=== PATIENT | female | born 1935 | race Caucasian/White ===

== ENCOUNTER 2016-05-11 21:54 | Inpatient (IN) | payer MEDICARE, OTHER ==
[2016-05-11] MEDS ORDERED: methylPREDNISolone 125 MG* 2 ML VIAL IV ONE (22:38)
[2016-05-11] MEDS ORDERED: Albuterol/Ipratropium NEB.SOL* Albuterol 2.5 MG/Ipratropium 0.5 MG 3 ML ONE (22:53)
[2016-05-11] MEDS: Albuterol/Ipratropium NEB.SOL* Albuterol 2.5 MG/Ipratropium 0.5 MG 3 ML INH SCH ×3 (22:56→23:33)
[2016-05-11 22:59] LABS: PCO2 Arterial 36 mmHg (35-45)
[2016-05-11 23:24] LABS: Hematocrit 37 % (35-47); Hemoglobin 12.3 g/dl (12.0-16.0); Mean Corpuscular HGB Conc 33 g/dl (31-36); Mean Corpuscular Hemoglobin 26 pg (27-31); Mean Corpuscular Volume 79 fL (80-97); Mean Platelet Volume 8 um3 (7.4-10.4); Red Blood Count 4.71 10^6/ul (4.0-5.4); Red Cell Distribution Width 16 % (10.5-15); White Blood Count 5.1 10^3/ul (3.5-10.8)
[2016-05-11 23:35] LABS: Albumin 3.9 g/dL (3.2-5.2); BUN/Creatinine Ratio 21.6 (8-20); Calcium 9.5 mg/dL (8.6-10.3); EGFR African American 52.8 (>60); Globulin 3.1 g/dL (2-4); Total Bilirubin 0.5 mg/dL (0.2-1.0)
--- NOTE | 2016-05-12 00:49 | HP ---
H&P (Free Text) History and Physical: PCP: Onel Antonio MD Date/Time of Evaluation: 05/12/2016 0130 CC: SOB, cough HPI: Mrs Woods is an 80YO female resident of [place] who reports onset of cough ~1 week ago which became acutely worse tonight with increased SOB, malaise , & fatigue. She has had some subjective F/C, but no N/V/D, chest pain, or other issues. Bowels and bladder have been normal. Flu & pneumoccocal vaccines reportedly up-to-date. Evaluation reveals positive influenza A and lung exam consistent with a 2nd exacerbation of asthma. PMedHx HTN Parkinsonism asthma hypothyroidism depression HX breast CA Allergies Prednisone Allergy (Intermediate, Verified 05/11/16 22:11) See Comment pt states all steroids make her violent Indomethacin Adverse Reaction (Severe, Verified 05/11/16 22:11) See Comment personality changes Amitriptyline Adverse Reaction (Intermediate, Verified 05/11/16 22:11) See Comment depression Cyclobenzaprine Adverse Reaction (Unknown, Verified 05/11/16 22:11) Unknown Reaction Details LISTED ON PHYSICIAN ORDERS Ambulatory Orders Multiple Vitamins W/ Minerals [Multivitamin Adults 50+] 1 tab PO DAILY 04/15/12 Triamterene/HCTZ 75-50 MG* [Maxzide 75-50*] 1 tab PO 0800 10/10/12 Albuterol HFA INHALER* [Ventolin HFA Inhaler*] 2 puff INH Q4H PRN 01/03/15 Fluticasone-Salmeterol 250-50* [Advair Diskus 250-50*] 1 puff INH BID 01/03/15 Levothyroxine TAB* [Synthroid TAB*] 50 mcg PO QAM 01/03/15 Sulfamethox/Trimethoprim DS* [Bactrim DS 800/160 TAB*] 1 tab PO SEE INSTRUCTIONS 01/03/15 Carbidopa/Levodop 25/100 MG(*) 1.5 tab PO 0800,1200,1600 01/04/15 Carbidopa/Levodop CR 50/200(*) 1 tab PO 1900 01/04/15 Sertraline HCl [Zoloft] 100 mg PO 1600 01/04/15 Benzonatate [Tessalon Perles] 100 mg PO TID #30 cap 11/21/15 Acetaminophen 05/12/16 Acetaminophen 325 PO Q4HR 05/12/16 Acetaminophen (Mapap) 650 tab PO Q4HR PRN 05/12/16 PSurgHx cataract extraction cholecystectomy appendectomy hysterectomy B TKA SocHx: no tobacco, alcohol, or recreational drug HX; lives at [place]; full code status FamHx: positive for HTN, DM ROS: as above, otherwise reviewed and all were negative Constitutional: NAD, normally developed, overweight elderly white female vitals: Vital Signs Temp 37.4 C 05/11/16 22:06 Pulse 97 05/12/16 01:00 Resp 20 05/12/16 01:00 BP 109/43 05/12/16 01:00 Pulse Ox 95 05/12/16 01:00 Intake & Output 05/11/16 05/11/16 05/12/16 11:59 23:59 11:59 Weight 81.193 kg HEENM: atraumatic; sclera/conjunctiva: non-icteric/clear; hearing: clinically intact; oropharynx: clear, mucosa tacky Neck: soft tissue: no nuchal rigidity; thyroid: normal Pulmonary: clear to auscultation bilaterally, good aeration, no accessory muscle use CV: RR/RR, normal S1S2, no carotid bruit, no jugular venous distention, 2+ B DP/ PT, no edema Abdominal: soft, non-distended, non-tender, no rebound/guarding/rigidity, normoactive bowel sounds, no hepatosplenomegaly or masses, no costovertebral angle tenderness Musculoskeletal: general: grossly intact; gait: borderline stability Integumental: normal appearance and texture of exposed skin Neurological resting tremor or RUE w/ 'pill rolling' Psychiatric orientation: AA&O to PPS affect: calm mood: cooperative eye contact: fair content: reliable responses: timely insight: fair Testing: Lab Results 05/11/16 05/11/16 05/11/16 Range/Units 22:50 23:04 23:04 WBC 5.1 (3.5-10.8) 10^3/ul RBC 4.71 (4.0-5.4) 10^6/ul Hgb 12.3 (12.0-16.0) g/dl Hct 37 (35-47) % MCV 79 L (80-97) fL MCH 26 L (27-31) pg MCHC 33 (31-36) g/dl RDW 16 H (10.5-15) % Plt Count 182 (150-450) 10^3/ul MPV 8 (7.4-10.4) um3 Neut % (Auto) 42.8 (38-83) % Lymph % (Auto) 41.1 (25-47) % [place] % (Auto) 14.2 H (1-9) % Eos % (Auto) 1.3 (0-6) % Baso % (Auto) 0.6 (0-2) % Absolute Neuts (auto) 2.2 (1.5-7.7) 10^3/ul Absolute Lymphs (auto) 2.1 (1.0-4.8) 10^3/ul Absolute Monos (auto) 0.7 (0-0.8) 10^3/ul Absolute Eos (auto) 0.1 (0-0.6) 10^3/ul Absolute Basos (auto) 0 (0-0.2) 10^3/ul Absolute Nucleated RBC 0.01 10^3/ul Nucleated RBC % 0.1 Patient Temperature Not Reportable ABG pH 7.47 H (7.35-7.45) ABG pCO2 36 (35-45) mmHg ABG pO2 87 (80-100) mmHg ABG HCO3 26.9 (19-31) mmol/L ABG O2 Saturation 96.9 (95-98) % ABG Base Excess 2.6 H (-2.0-2.0) Respiration Rate Not Reportable O2 Delivery Device nasal cannula Ventilator Type Not Reportable Vent Mode Not Reportable FiO2 Not Reportable Inspiratory Time Not Reportable PEEP Not Reportable Pressure Support Not Reportable Pressure Control Not Reportable EPAP Not Reportable IPAP Not Reportable BiPAP Not Reportable Sodium 136 (133-145) mmol/L Potassium 3.0 L (3.5-5.0) mmol/L Chloride 98 L (101-111) mmol/L Carbon Dioxide 27 (22-32) mmol/L Anion Gap 11 (2-11) mmol/L BUN 27 H (6-24) mg/dL Creatinine 1.25 H (0.51-0.95) mg/dL Est GFR ( Amer) 52.8 (>60) Est GFR (Non-Af Amer) 41.0 (>60) BUN/Creatinine Ratio 21.6 H (8-20) Glucose 118 H (70-100) mg/dL Lactic Acid (0.5-2.0) mmol/L Calcium 9.5 (8.6-10.3) mg/dL Total Bilirubin 0.50 (0.2-1.0) mg/dL AST 62 H (13-39) U/L ALT 12 (7-52) U/L Alkaline Phosphatase 61 (34-104) U/L Troponin I 0.02 (<0.04) ng/mL B-Natriuretic Peptide ( - 100) pg/mL Total Protein 7.0 (6.4-8.9) g/dL Albumin 3.9 (3.2-5.2) g/dL Globulin 3.1 (2-4) g/dL Albumin/Globulin Ratio 1.3 (1-3) Influenza A (Rapid) (Negative) Influenza B (Rapid) (Negative) 05/11/16 05/11/16 05/12/16 Range/Units 23:04 23:04 00:41 WBC (3.5-10.8) 10^3/ul RBC (4.0-5.4) 10^6/ul Hgb (12.0-16.0) g/dl Hct (35-47) % MCV (80-97) fL MCH (27-31) pg MCHC (31-36) g/dl RDW (10.5-15) % Plt Count (150-450) 10^3/ul MPV (7.4-10.4) um3 Neut % (Auto) (38-83) % Lymph % (Auto) (25-47) % [place] % (Auto) (1-9) % Eos % (Auto) (0-6) % Baso % (Auto) (0-2) % Absolute Neuts (auto) (1.5-7.7) 10^3/ul Absolute Lymphs (auto) (1.0-4.8) 10^3/ul Absolute Monos (auto) (0-0.8) 10^3/ul Absolute Eos (auto) (0-0.6) 10^3/ul Absolute Basos (auto) (0-0.2) 10^3/ul Absolute Nucleated RBC 10^3/ul Nucleated RBC % Patient Temperature ABG pH (7.35-7.45) ABG pCO2 (35-45) mmHg ABG pO2 (80-100) mmHg ABG HCO3 (19-31) mmol/L ABG O2 Saturation (95-98) % ABG Base Excess (-2.0-2.0) Respiration Rate O2 Delivery Device Ventilator Type Vent Mode FiO2 Inspiratory Time PEEP Pressure Support Pressure Control EPAP IPAP BiPAP Sodium (133-145) mmol/L Potassium (3.5-5.0) mmol/L Chloride (101-111) mmol/L Carbon Dioxide (22-32) mmol/L Anion Gap (2-11) mmol/L BUN (6-24) mg/dL Creatinine (0.51-0.95) mg/dL Est GFR ( Amer) (>60) Est GFR (Non-Af Amer) (>60) BUN/Creatinine Ratio (8-20) Glucose (70-100) mg/dL Lactic Acid 0.9 (0.5-2.0) mmol/L Calcium (8.6-10.3) mg/dL Total Bilirubin (0.2-1.0) mg/dL AST (13-39) U/L ALT (7-52) U/L Alkaline Phosphatase (34-104) U/L Troponin I (<0.04) ng/mL B-Natriuretic Peptide 54 ( - 100) pg/mL Total Protein (6.4-8.9) g/dL Albumin (3.2-5.2) g/dL Globulin (2-4) g/dL Albumin/Globulin Ratio (1-3) Influenza A (Rapid) Positive H (Negative) Influenza B (Rapid) Negative (Negative) ECG, personally reviewed: sinus tachycardia rate 102, mild lateral ST depressions CXR, personally reviewed: no acute process Impression: 80F presenting with cough & SOB found to be influenza A positive with 2nd asthma exacerbation DIAGNOSIS & PLAN Primary asthma exacerbation : albuterol nebs : mometasone/formoterol : tiotropium : IV methylprednisolone : supplemental oxygen : guaifenesin : supportive care influenza A : PO oseltamivir 75mg BID x5 days dehydration : IVFs, monitor hypoKalemia : replace & recheck Secondary HTN : continue triamterene/HCTZ Parkinsonism : continue levo/carbidopa hypothyroidism : continue levothyroxine once dose reconciled depression : continue sertraline HX breast CA : no acute issues Admission Rational: inpatient management for asthma exacerbation 2nd influenza A not appropriate for outpatient setting DVTp: SCDs & heparin SQ Code Status: full HCP: daughter
[2016-05-12 01:00] LABS: Troponin I 0.02 ng/mL (<0.04)
[2016-05-12] MEDS ORDERED: Ondansetron INJ* 2 MG/ML VIAL IV PRN (01:32)
[2016-05-12] MEDS ORDERED: cefTRIAXone VIAL(*) 1,000 MG in NS 0.9% 50 ML* 50 ML IVPB SCH (02:00)
[2016-05-12] MEDS ORDERED: Azithromycin IV(*) 500 MG in NS 0.9% 250 ML* 250 ML IVPB SCH (02:00)
[2016-05-12] MEDS ORDERED: KCL 20 MEQ/100 ML IVPREMIX* 20 MEQ/100 ML BAG IV SCH (02:30)
--- NOTE | 2016-05-12 03:20 | ED ---
Sally Cabezas [place], scribed for Donavon Levy on 05/11/16 at 2245 . Shortness of Breath - HPI Summary HPI Summary: Patient is a 80 y/o female who presents to the ED with dyspnea for 3 to 4 days. She reports having a cold, but denies coughing, fever, or pedal edema. Her PSHx is significant for a mastectomy. She denies smoking. - History of Current Complaint Chief Complaint: EDShortnessOfBreath Time Seen by Provider: 05/11/16 22:02 Hx Obtained From: Patient Onset/Duration: Gradual Onset, Lasting Days Current Severity: Moderate Aggrevating Factors: Nothing Alleviating Factors: Nothing - Allergy/Home Medications Allergies/Adverse Reactions: Allergies Allergy/AdvReac Type Severity Reaction Status Date / Time Indomethacin AdvReac Severe See Comment Verified 05/11/16 22:11 Amitriptyline AdvReac Intermediate See Comment Verified 05/11/16 22:11 Prednisone AdvReac Intermediate See Comment Verified 05/12/16 01:43 Cyclobenzaprine AdvReac Unknown Unknown Verified 05/11/16 22:11 Reaction Details PMH/Surg Hx/FS Hx/Imm Hx Endocrine/Hematology History: Reports: Hx Diabetes - history, not current, Hx Thyroid Disease Denies: Hx Sickle Cell Disease Cardiovascular History: Reports: Hx Hypertension Denies: Hx Congestive Heart Failure, Hx Pacemaker/ICD Respiratory History: Reports: Hx Asthma Denies: Other Respiratory Problems/Disorders GI History: Reports: Hx Diverticulosis, Hx Gastroesophageal Reflux Disease, Hx Hiatal Hernia, Other GI Disorders - hx lower GI bleed History: Reports: Other Problems/Disorders - some incontence Musculoskeletal History: Reports: Hx Arthritis, Hx Back Problems, Other Musculoskeletal History - Spinal stenosis Denies: Hx Gout Sensory History: Reports: Hx Contacts or Glasses Denies: Hx Hearing Aid Opthamlomology History: Reports: Hx Contacts or Glasses Neurological History: Reports: Hx Dementia, Other Neuro Impairments/Disorders - PARKINSONS DISEASE, restless leg Denies: Hx Seizures, Hx Transient Ischemic Attacks (TIA) Psychiatric History: Reports: Hx Panic Disorder - hx of anxiety - Cancer History Cancer Type, Location and Year: Mastectomy for breast cancer;unknown dates Hx Chemotherapy: No Hx Radiation Therapy: No - Surgical History Surgery Procedure, Year, and Place: Tram flap in 1998 Multiple incisional hernia 's with erosion of mesh into bowel repair, 04/08/12: Dr. Caba Hysterectomy with oophrectomy, knee surgery bilateral, mastectomy,gallbladder , removal of mesh into bowel area. inserted biomesh. Hx Anesthesia Reactions: No - Immunization History Date of Tetanus Vaccine: utd Date of Influenza Vaccine: unk Infectious Disease History: No Infectious Disease History: Denies: Traveled Outside the [place] in Last 30 Days - Family History Known Family History: Negative: Other - negative malignant hyperthemia or anesthetic reaction. - Social History Alcohol Use: None Substance Use Type: Reports: None Hx Tobacco Use: No Smoking Status (MU): Never Smoked Tobacco Review of Systems Negative: Fever Positive: Shortness Of Breath. Negative: Cough Negative: Edema - Pedal. All Other Systems Reviewed And Are Negative: Yes Physical Exam Triage Information Reviewed: Yes Vital Signs On Initial Exam: Initial Vitals Temp Pulse Resp BP Pulse Ox 99.4 F 96 18 122/66 91 05/11/16 22:06 05/11/16 22:06 05/11/16 22:06 05/11/16 22:06 05/11/16 22:06 Vital Signs Reviewed: Yes Appearance: Positive: Well-Appearing, No Pain Distress Skin: Positive: Warm, Skin Color Reflects Adequate Perfusion, Dry Head/Face: Positive: Normal Head/Face Inspection Eyes: Positive: EOMI, ALPESH Neck: Positive: Supple, Nontender Respiratory/Lung Sounds: Positive: Rhonchi, Wheezes - Bilateral. Cardiovascular: Positive: RRR, Pulses are Symmetrical in both Upper and Lower Extremities Abdomen Description: Positive: Nontender, Soft Bowel Sounds: Positive: Present Musculoskeletal: Positive: Normal, Strength/ROM Intact Neurological: Positive: Normal, Sensory/Motor Intact, Alert, Oriented to Person Place, Time - [place] Coma Scale Coma Scale Total: 15 Diagnostics - Vital Signs Vital Signs Temp Pulse Resp BP Pulse Ox 05/11/16 22:06 99.4 F 96 18 122/66 91 - Laboratory Lab Results: Lab Results 05/11/16 05/11/16 05/11/16 Range/Units 22:50 23:04 23:04 WBC 5.1 (3.5-10.8) 10^3/ul RBC 4.71 (4.0-5.4) 10^6/ul Hgb 12.3 (12.0-16.0) g/dl Hct 37 (35-47) % MCV 79 L (80-97) fL MCH 26 L (27-31) pg MCHC 33 (31-36) g/dl RDW 16 H (10.5-15) % Plt Count 182 (150-450) 10^3/ul MPV 8 (7.4-10.4) um3 Neut % (Auto) 42.8 (38-83) % Lymph % (Auto) 41.1 (25-47) % [place] % (Auto) 14.2 H (1-9) % Eos % (Auto) 1.3 (0-6) % Baso % (Auto) 0.6 (0-2) % Absolute Neuts (auto) 2.2 (1.5-7.7) 10^3/ul Absolute Lymphs (auto) 2.1 (1.0-4.8) 10^3/ul Absolute Monos (auto) 0.7 (0-0.8) 10^3/ul Absolute Eos (auto) 0.1 (0-0.6) 10^3/ul Absolute Basos (auto) 0 (0-0.2) 10^3/ul Absolute Nucleated RBC 0.01 10^3/ul Nucleated RBC % 0.1 Patient Temperature Not Reportable ABG pH 7.47 H (7.35-7.45) ABG pCO2 36 (35-45) mmHg ABG pO2 87 (80-100) mmHg ABG HCO3 26.9 (19-31) mmol/L ABG O2 Saturation 96.9 (95-98) % ABG Base Excess 2.6 H (-2.0-2.0) Respiration Rate Not Reportable O2 Delivery Device nasal cannula Ventilator Type Not Reportable Vent Mode Not Reportable FiO2 Not Reportable Inspiratory Time Not Reportable PEEP Not Reportable Pressure Support Not Reportable Pressure Control Not Reportable EPAP Not Reportable IPAP Not Reportable BiPAP Not Reportable Sodium 136 (133-145) mmol/L Potassium 3.0 L (3.5-5.0) mmol/L Chloride 98 L (101-111) mmol/L Carbon Dioxide 27 (22-32) mmol/L Anion Gap 11 (2-11) mmol/L BUN 27 H (6-24) mg/dL Creatinine 1.25 H (0.51-0.95) mg/dL Est GFR ( Amer) 52.8 (>60) Est GFR (Non-Af Amer) 41.0 (>60) BUN/Creatinine Ratio 21.6 H (8-20) Glucose 118 H (70-100) mg/dL Lactic Acid (0.5-2.0) mmol/L Calcium 9.5 (8.6-10.3) mg/dL Total Bilirubin 0.50 (0.2-1.0) mg/dL AST 62 H (13-39) U/L ALT 12 (7-52) U/L Alkaline Phosphatase 61 (34-104) U/L Troponin I 0.02 (<0.04) ng/mL B-Natriuretic Peptide ( - 100) pg/mL Total Protein 7.0 (6.4-8.9) g/dL Albumin 3.9 (3.2-5.2) g/dL Globulin 3.1 (2-4) g/dL Albumin/Globulin Ratio 1.3 (1-3) Influenza A (Rapid) (Negative) Influenza B (Rapid) (Negative) 05/11/16 05/11/16 05/12/16 Range/Units 23:04 23:04 00:41 WBC (3.5-10.8) 10^3/ul RBC (4.0-5.4) 10^6/ul Hgb (12.0-16.0) g/dl Hct (35-47) % MCV (80-97) fL MCH (27-31) pg MCHC (31-36) g/dl RDW (10.5-15) % Plt Count (150-450) 10^3/ul MPV (7.4-10.4) um3 Neut % (Auto) (38-83) % Lymph % (Auto) (25-47) % [place] % (Auto) (1-9) % Eos % (Auto) (0-6) % Baso % (Auto) (0-2) % Absolute Neuts (auto) (1.5-7.7) 10^3/ul Absolute Lymphs (auto) (1.0-4.8) 10^3/ul Absolute Monos (auto) (0-0.8) 10^3/ul Absolute Eos (auto) (0-0.6) 10^3/ul Absolute Basos (auto) (0-0.2) 10^3/ul Absolute Nucleated RBC 10^3/ul Nucleated RBC % Patient Temperature ABG pH (7.35-7.45) ABG pCO2 (35-45) mmHg ABG pO2 (80-100) mmHg ABG HCO3 (19-31) mmol/L ABG O2 Saturation (95-98) % ABG Base Excess (-2.0-2.0) Respiration Rate O2 Delivery Device Ventilator Type Vent Mode FiO2 Inspiratory Time PEEP Pressure Support Pressure Control EPAP IPAP BiPAP Sodium (133-145) mmol/L Potassium (3.5-5.0) mmol/L Chloride (101-111) mmol/L Carbon Dioxide (22-32) mmol/L Anion Gap (2-11) mmol/L BUN (6-24) mg/dL Creatinine (0.51-0.95) mg/dL Est GFR ( Amer) (>60) Est GFR (Non-Af Amer) (>60) BUN/Creatinine Ratio (8-20) Glucose (70-100) mg/dL Lactic Acid 0.9 (0.5-2.0) mmol/L Calcium (8.6-10.3) mg/dL Total Bilirubin (0.2-1.0) mg/dL AST (13-39) U/L ALT (7-52) U/L Alkaline Phosphatase (34-104) U/L Troponin I (<0.04) ng/mL B-Natriuretic Peptide 54 ( - 100) pg/mL Total Protein (6.4-8.9) g/dL Albumin (3.2-5.2) g/dL Globulin (2-4) g/dL Albumin/Globulin Ratio (1-3) Influenza A (Rapid) Positive H (Negative) Influenza B (Rapid) Negative (Negative) Result Diagrams: 05/11/16 23:04 05/11/16 23:04 Lab Statement: Any lab studies that have been ordered have been reviewed, and results considered in the medical decision making process. - Radiology CXR Radiology Interpretation Completed By: ED Physician - Negative/normal. - EKG 0036 EKG Interpretation: Sinus tachycardia @ 102 bpm. MAT. Re-Evaluation - Re-Evaluation First Eval Re-Evaluation Time: 00:06 Change: Unchanged Course/Dx - Diagnoses Provider Diagnoses: COPD exacerbation - Physician Notifications Discussed Care of Patient With: Dr. Cooper (Hospitalist) @ 0010. Will admit. Discharge - Discharge Plan Condition: Stable Disposition: ADMITTED TO [facility] The documentation as recorded by the Sally león Salem accurately reflects the service I personally performed and the decisions made by , Donavon Levy.
[2016-05-12] MEDS: NS 0.9% 1000 ML* 1,000 ML IV SCH ×2 (03:26→18:36)
[2016-05-12] MEDS: KCL 20 MEQ/100 ML IVPREMIX* 20 MEQ/100 ML BAG IV SCH ×2 (03:26→09:58)
[2016-05-12] MEDS: Omeprazole CAP* 20 MG PO SCH (05:31)
--- NOTE | 2016-05-12 07:05 | RAD ---
INDICATION: Short of breath COMPARISON: February 22, 2016 TECHNIQUE: An AP portable view obtained at 1133 hours is submitted. FINDINGS: Bones/Soft Tissues: There are no acute bony findings. Cardiomediastinal: The cardiomediastinal silhouette is normal. Lungs: There are no infiltrates. Pleura: There are no pleural effusions. Other: None IMPRESSION: NO ACTIVE DISEASE.
[2016-05-12] MEDS: Mometasone/Formoter 200/5 MDI INH SCH ×2 (07:55→20:47)
[2016-05-12] MEDS: Tiotropium CAP.INH* CAP.INH/18 MCG (USE ORDER SET !) INH SCH (07:55)
[2016-05-12] MEDS: Albuterol 2.5 MG/3 ML NEB.SOL* (0.083%) INH SCH ×4 (07:56→20:47)
[2016-05-12 08:21] LABS: Hematocrit 37 % (35-47); Hemoglobin 12.3 g/dl (12.0-16.0); Mean Corpuscular HGB Conc 33 g/dl (31-36); Mean Corpuscular Hemoglobin 26 pg (27-31); Mean Corpuscular Volume 79 fL (80-97); Mean Platelet Volume 7 um3 (7.4-10.4); Red Blood Count 4.72 10^6/ul (4.0-5.4); Red Cell Distribution Width 17 % (10.5-15); White Blood Count 4.3 10^3/ul (3.5-10.8)
[2016-05-12 08:51] LABS: BUN/Creatinine Ratio 22.8 (8-20); Calcium 9.3 mg/dL (8.6-10.3); EGFR African American 51.8 (>60); EGFR Non-African American 40.3 (>60); Potassium 3.6 mmol/L (3.5-5.0)
[2016-05-12] MEDS ORDERED: Spiriva Inhaler DEVICE* 1 EACH DEVICE INH ONE (09:00)
[2016-05-12] MEDS: Carbidopa/Levodop 25/100 MG TAB(*) PO SCH ×3 (09:56→16:08)
[2016-05-12] MEDS: Oseltamivir CAP* 30 MG CAP PO SCH ×2 (09:57→22:04)
[2016-05-12] MEDS: Triamterene/HCTZ 75-50 MG* TAB PO SCH (09:57)
[2016-05-12] MEDS: guaiFENesin ER TAB 600 MG PO SCH ×2 (09:57→22:05)
[2016-05-12] MEDS: Docusate CAP* 100 MG PO SCH ×2 (09:57→22:04)
--- NOTE | 2016-05-12 10:33 | PN ---
Subjective Date of Service: 05/12/16 Interval History: This is an 80 yo female with a h/o dementia, Parkinsons, asthma, hypothyroidism and depression who presented yesterday with complaints of SOB and cough. Tested positive for influenza A with asthma exacerbation. She has been started on Tamiflu and IV corticosteroids. Patient reports feeling "lousy" today. No respiratory complaints. She can't localize her concern. She has had several episodes of diarrhea today. No complaints of abdominal pain. Objective Active Medications: Acetaminophen (Tylenol Tab*) 650 mg PO Q6H PRN PRN Reason: FEVER/PAIN Albuterol (Ventolin 2.5 Mg/3 Ml Neb.Madisyn*) 2.5 mg INH Q2H PRN PRN Reason: SOB/WHEEZING Albuterol (Ventolin 2.5 Mg/3 Ml Neb.Madisyn*) 2.5 mg INH [id number] AWAKE [facility] Last Admin: 05/12/16 07:56 Dose: 2.5 mg Carbidopa/Levodopa (Sinemet 25/100 Tab(*)) 1.5 tab PO 0800,1200,1600 [facility] Last Admin: 05/12/16 09:56 Dose: 1.5 tab Carbidopa/Levodopa (Sinemet Cr 50/200(*)) 1 tab.cr PO 1900 [facility] Docusate Sodium (Colace Cap*) 200 mg PO BID [facility] Last Admin: 05/12/16 09:57 Dose: 200 mg Guaifenesin (Mucinex*) 1,200 mg PO BID [facility] Last Admin: 05/12/16 09:57 Dose: 1,200 mg Heparin Sodium (Porcine) (Heparin Vial(*)) 5,000 units SUBCUT Q8HR [facility] Sodium Chloride (Ns 0.9% 1000 Ml*) 1,000 mls @ 85 mls/hr IV PER RATE [facility] Last Admin: 05/12/16 03:26 Dose: 85 mls/hr Melatonin (Melatonin (Nf)) 3 mg PO BEDTIME PRN; Protocol PRN Reason: Sleep Methylprednisolone Sodium Succinate (Solu-Medrol*) 40 mg IV Q8H [facility] Stop: 05/12/16 23:00 Mometasone Furoate/Formoterol Fumar (Dulera 200/5 Mdi*) 2 puff INH BID [facility] Last Admin: 05/12/16 07:55 Dose: 2 puff Omeprazole (Prilosec Cap*) 20 mg PO DAILY@0600 [facility] Last Admin: 05/12/16 05:31 Dose: 20 mg Ondansetron HCl (Zofran Inj*) 4 mg IV Q6H PRN PRN Reason: NAUSEA Oseltamivir Phosphate (Tamiflu Cap*) 30 mg PO BID [facility] Stop: 05/16/16 21:01 Last Admin: 05/12/16 09:57 Dose: 30 mg Sertraline HCl (Zoloft*) 100 mg PO 1600 [facility] Tiotropium Gaffney (Spiriva Cap.Inh*) 1 cap INH DAILY [facility] Last Admin: 05/12/16 07:55 Dose: 1 cap Triamterene/HCTZ (Maxzide 75-50*) 1 tab PO 0800 [facility] Last Admin: 05/12/16 09:57 Dose: 1 tab Vital Signs: Temp Pulse Resp BP Pulse Ox 98.2 F 97 18 127/74 97 05/12/16 08:31 05/12/16 08:53 05/12/16 08:53 05/12/16 08:31 05/12/16 08:53 Appearance: Elderly, ill appearing female with a tremor who appears mildly uncomfortable. Neck: NL Appearance and Movements; NL JVP Respiratory: Symmetrical Chest Expansion and Respiratory Effort, - - few rhonchi and wheezing appreciated at lung bases, remainder of lung chase clear, no wheezing Cardiovascular: NL Sounds; No Murmurs; No JVD, RRR Abdominal: NL Sounds; No Tenderness; No Distention Extremities: No Edema Skin: No Rash or Ulcers Neurological: - - alert, but confused Result Diagrams: 05/12/16 08:15 05/12/16 08:15 Additional Lab and Data: . Microbiology and Other Data: Microbiology 05/12/16 02:20 Nasal Screen MRSA (PCR)(BERNABE) - Final Nasal Mrsa Negative Diagnostic Imaging: CXR - NAD Assess/Plan/Problems-Billing Assessment: This is an 80 yo female with asthma, Parkinsons, asthma, HTN, hypothyroidism and depression who presented with cough and shortness of breath. She has been admitted for an asthma exacerbation secondary to influenza A infection. - Patient Problems (1) Asthma exacerbation Comment: Secondary to influenza A Oxygenating fairly well at this time Few rhonchi and wheezes appreciated at lung bases Cont IV corticosteroids today and can transition to oral tomorrow (2) Influenza A virus present Comment: Afebrile overnight Tamiflu has been initiated (3) Dementia Comment: Likely [place] body No significant behavioral concerns (4) HTN (hypertension) Comment: Normotensive at this time Triamterene/HCTZ has been continued at this time (5) Parkinson disease Comment: Tremor noted Sinemet at home doses has been continued (6) Hypothyroid Comment: Cont levothyroxine Status and Disposition: Patient requires continued inpatient hospital care. Anticipate discharge in ~ 2d
[2016-05-12] MEDS: methylPREDNISolone SOD 40 MG* 1 ML VIAL IV SCH ×2 (11:10→18:43)
[2016-05-12] MEDS: Sertraline* 100 MG TAB PO SCH (16:02)
[2016-05-12] MEDS: Carbidopa/Levodop CR 50/200(*) TAB.CR PO SCH (19:30)
[2016-05-13] MEDS: Albuterol 2.5 MG/3 ML NEB.SOL* (0.083%) INH SCH ×5 (01:08→19:42)
[2016-05-13] MEDS: Heparin VIAL(*) 5000 UNITS/ML VIAL (FIVE THOUSAND) SUBCUT SCH ×3 (05:20→21:34)
[2016-05-13] MEDS: Omeprazole CAP* 20 MG PO SCH (05:21)
[2016-05-13] MEDS: Levothyroxine TAB* 50 MCG TAB PO SCH (05:21)
[2016-05-13] MEDS: NS 0.9% 1000 ML* 1,000 ML IV SCH (07:14)
[2016-05-13] MEDS: Tiotropium CAP.INH* CAP.INH/18 MCG (USE ORDER SET !) INH SCH (07:55)
[2016-05-13] MEDS: Mometasone/Formoter 200/5 MDI INH SCH ×2 (07:55→19:42)
[2016-05-13] MEDS ORDERED: methylPREDNISolone SOD 40 MG* 1 ML VIAL IV SCH (09:00)
[2016-05-13 09:43] LABS: BUN/Creatinine Ratio 25.8 (8-20); Calcium 9.2 mg/dL (8.6-10.3); EGFR African American 78.1 (>60); EGFR Non-African American 60.7 (>60); Potassium 3.6 mmol/L (3.5-5.0)
[2016-05-13] MEDS: guaiFENesin ER TAB 600 MG PO SCH ×2 (11:01→21:33)
[2016-05-13] MEDS: Carbidopa/Levodop 25/100 MG TAB(*) PO SCH ×3 (11:01→17:57)
[2016-05-13] MEDS: predniSONE TAB* 20 MG PO SCH (11:02)
[2016-05-13] MEDS: Oseltamivir CAP* 30 MG CAP PO SCH ×2 (11:02→21:34)
[2016-05-13] MEDS: Triamterene/HCTZ 75-50 MG* TAB PO SCH (11:02)
[2016-05-13] MEDS: Docusate CAP* 100 MG PO SCH ×2 (11:12→21:34)
--- NOTE | 2016-05-13 14:21 | PN ---
Subjective Date of Service: 05/13/16 Interval History: Patient reports improvement since yesterday. She still has poor energy and still feels a little "foggy". Myalgias have improved. Cough has improved. No complaints of dyspnea. Objective Active Medications: Acetaminophen (Tylenol Tab*) 650 mg PO Q6H PRN PRN Reason: FEVER/PAIN Albuterol (Ventolin 2.5 Mg/3 Ml Neb.Madisyn*) 2.5 mg INH Q2H PRN PRN Reason: SOB/WHEEZING Albuterol (Ventolin 2.5 Mg/3 Ml Neb.Madisyn*) 2.5 mg INH [id number] AWAKE [facility] Last Admin: 05/13/16 13:49 Dose: Not Given Carbidopa/Levodopa (Sinemet 25/100 Tab(*)) 1.5 tab PO 0800,1200,1600 [facility] Last Admin: 05/13/16 11:01 Dose: 1.5 tab Carbidopa/Levodopa (Sinemet Cr 50/200(*)) 1 tab.cr PO 1900 [facility] Last Admin: 05/12/16 19:30 Dose: 1 tab.cr Docusate Sodium (Colace Cap*) 200 mg PO BID [facility] Last Admin: 05/13/16 11:12 Dose: Not Given Guaifenesin (Mucinex*) 1,200 mg PO BID [facility] Last Admin: 05/13/16 11:01 Dose: 1,200 mg Heparin Sodium (Porcine) (Heparin Vial(*)) 5,000 units SUBCUT Q8HR [facility] Last Admin: 05/13/16 05:20 Dose: 5,000 units Levothyroxine Sodium (Synthroid Tab*) 50 mcg PO 0600 [facility] Last Admin: 05/13/16 05:21 Dose: 50 mcg Melatonin (Melatonin (Nf)) 3 mg PO BEDTIME PRN; Protocol PRN Reason: Sleep Mometasone Furoate/Formoterol Fumar (Dulera 200/5 Mdi*) 2 puff INH BID [facility] Last Admin: 05/13/16 07:55 Dose: 2 puff Omeprazole (Prilosec Cap*) 20 mg PO DAILY@0600 [facility] Last Admin: 05/13/16 05:21 Dose: 20 mg Ondansetron HCl (Zofran Inj*) 4 mg IV Q6H PRN PRN Reason: NAUSEA Oseltamivir Phosphate (Tamiflu Cap*) 30 mg PO BID [facility] Stop: 05/16/16 21:01 Last Admin: 05/13/16 11:02 Dose: 30 mg Prednisone (Deltasone Tab*) 40 mg PO DAILY [facility] Last Admin: 05/13/16 11:02 Dose: 40 mg Sertraline HCl (Zoloft*) 100 mg PO 1600 [facility] Last Admin: 05/12/16 16:02 Dose: 100 mg Tiotropium [place] (Spiriva Cap.Inh*) 1 cap INH DAILY [facility] Last Admin: 05/13/16 07:55 Dose: 1 cap Triamterene/HCTZ (Maxzide 75-50*) 1 tab PO 0800 [facility] Last Admin: 05/13/16 11:02 Dose: 1 tab Vital Signs: Temp Pulse Resp BP Pulse Ox 98.3 F 79 16 143/58 95 05/13/16 07:28 05/13/16 08:00 05/13/16 08:00 05/13/16 07:28 05/13/16 08:00 Oxygen Devices in Use Now: Nasal Cannula Appearance: Mildly ill but improved appearing elderly female in NAD Ears/Nose/Mouth/Throat: Mucous Membranes Moist Neck: NL Appearance and Movements; NL JVP Respiratory: Symmetrical Chest Expansion and Respiratory Effort Cardiovascular: NL Sounds; No Murmurs; No JVD, RRR Abdominal: NL Sounds; No Tenderness; No Distention Extremities: No Edema Skin: No Rash or Ulcers Neurological: Alert and Oriented x 3 Result Diagrams: 05/12/16 08:15 05/13/16 08:21 Additional Lab and Data: . Microbiology and Other Data: Microbiology 05/12/16 02:20 Nasal Screen MRSA (PCR)(BERNABE) - Final Nasal Mrsa Negative Diagnostic Imaging: CXR - NAD Assess/Plan/Problems-Billing Assessment: This is an 80 yo female with asthma, Parkinsons, asthma, HTN, hypothyroidism and depression who presented with cough and shortness of breath. She has been admitted for an asthma exacerbation secondary to influenza A infection. - Patient Problems (1) Asthma exacerbation Comment: Secondary to influenza A Oxygenating fairly well at this time Improved lung exam today, no rhonchi or wheezing noted Cont prednisone and Advair with Tamiflu (2) Influenza A virus present Comment: Afebrile since admission Tamiflu has been initiated (3) Dementia Comment: Likely Lewey body No significant behavioral concerns (4) HTN (hypertension) Comment: Normotensive at this time Triamterene/HCTZ has been continued at this time (5) Parkinson disease Comment: Mild tremor noted Sinemet at home doses has been continued (6) Hypothyroid Comment: Cont levothyroxine (7) Code status needs review Comment: Patient is currently listed as Full Code Her last HCP and living will dated 2006 stated DNR/DNI with the exception of trauma or surgery Attempted to complete an updated MOLST, but patient did not feel that she was in a space that she could review that at the moment but stated that "whatever I' ve written down before was well researched", she would like to defer to her daughter to help her complete the MOLST Status and Disposition: Patient requires continued inpatient hospital care. Anticipate discharge in 1-2 days
[2016-05-13] MEDS: Sertraline* 100 MG TAB PO SCH (17:58)
--- NOTE | 2016-05-13 18:07 | PN ---
Hospitalist Progress Note Clarified with patient's daughter, who is her HCP, that she is DNR/DNI. MOLST completed and signed.
[2016-05-13] MEDS: Carbidopa/Levodop CR 50/200(*) TAB.CR PO SCH (21:33)
[2016-05-14] MEDS: Heparin VIAL(*) 5000 UNITS/ML VIAL (FIVE THOUSAND) SUBCUT SCH ×3 (05:16→21:29)
[2016-05-14] MEDS: Omeprazole CAP* 20 MG PO SCH (05:16)
[2016-05-14] MEDS: Levothyroxine TAB* 50 MCG TAB PO SCH (05:16)
[2016-05-14] MEDS: Docusate CAP* 100 MG PO SCH ×2 (09:19→19:32)
[2016-05-14] MEDS: Triamterene/HCTZ 75-50 MG* TAB PO SCH (09:19)
[2016-05-14] MEDS: guaiFENesin ER TAB 600 MG PO SCH ×2 (09:20→21:26)
[2016-05-14] MEDS: Oseltamivir CAP* 30 MG CAP PO SCH ×2 (09:20→21:26)
[2016-05-14] MEDS: predniSONE TAB* 20 MG PO SCH (09:20)
[2016-05-14] MEDS: Carbidopa/Levodop 25/100 MG TAB(*) PO SCH ×3 (09:20→15:56)
[2016-05-14] MEDS: Mometasone/Formoter 200/5 MDI INH SCH ×2 (09:58→20:51)
[2016-05-14] MEDS: Tiotropium CAP.INH* CAP.INH/18 MCG (USE ORDER SET !) INH SCH (09:58)
--- NOTE | 2016-05-14 10:32 | PN ---
Subjective Date of Service: 05/14/16 Interval History: Patient reports overall improvement. Myalgias/arthralgias have nearly resolved. No significant dyspnea. Cough improved. She has been up and ambulating to the bathroom this am and took a shower. She still feels quite fatigued. Objective Active Medications: Acetaminophen (Tylenol Tab*) 650 mg PO Q6H PRN PRN Reason: FEVER/PAIN Albuterol (Ventolin 2.5 Mg/3 Ml Neb.Madisyn*) 2.5 mg INH Q2H PRN PRN Reason: SOB/WHEEZING Carbidopa/Levodopa (Sinemet 25/100 Tab(*)) 1.5 tab PO 0800,1200,1600 [facility] Last Admin: 05/14/16 09:20 Dose: 1.5 tab Carbidopa/Levodopa (Sinemet Cr 50/200(*)) 1 tab.cr PO 1900 [facility] Last Admin: 05/13/16 21:33 Dose: 1 tab.cr Docusate Sodium (Colace Cap*) 200 mg PO BID [facility] Last Admin: 05/14/16 09:19 Dose: 200 mg Guaifenesin (Mucinex*) 1,200 mg PO BID [facility] Last Admin: 05/14/16 09:20 Dose: 1,200 mg Heparin Sodium (Porcine) (Heparin Vial(*)) 5,000 units SUBCUT Q8HR [facility] Last Admin: 05/14/16 05:16 Dose: 5,000 units Levothyroxine Sodium (Synthroid Tab*) 50 mcg PO 0600 [facility] Last Admin: 05/14/16 05:16 Dose: 50 mcg Melatonin (Melatonin (Nf)) 3 mg PO BEDTIME PRN; Protocol PRN Reason: Sleep Mometasone Furoate/Formoterol Fumar (Dulera 200/5 Mdi*) 2 puff INH BID [facility] Last Admin: 05/14/16 09:58 Dose: 2 puff Omeprazole (Prilosec Cap*) 20 mg PO DAILY@0600 [facility] Last Admin: 05/14/16 05:16 Dose: 20 mg Ondansetron HCl (Zofran Inj*) 4 mg IV Q6H PRN PRN Reason: NAUSEA Oseltamivir Phosphate (Tamiflu Cap*) 30 mg PO BID [facility] Stop: 05/16/16 21:01 Last Admin: 05/14/16 09:20 Dose: 30 mg Prednisone (Deltasone Tab*) 40 mg PO DAILY [facility] Last Admin: 05/14/16 09:20 Dose: 40 mg Sertraline HCl (Zoloft*) 100 mg PO 1600 [facility] Last Admin: 05/13/16 17:58 Dose: 100 mg Tiotropium [place] (Spiriva Cap.Inh*) 1 cap INH DAILY [facility] Last Admin: 05/14/16 09:58 Dose: 1 cap Triamterene/HCTZ (Maxzide 75-50*) 1 tab PO 0800 [facility] Last Admin: 05/14/16 09:19 Dose: 1 tab Vital Signs: Temp Pulse Resp BP Pulse Ox 98.0 F 80 14 122/54 95 05/14/16 07:11 05/14/16 10:00 05/14/16 10:00 05/14/16 07:11 05/14/16 10:00 Oxygen Devices in Use Now: Nasal Cannula Appearance: Fatigued, but smiling and generally well appearing elderly female in NAD Respiratory: Symmetrical Chest Expansion and Respiratory Effort, - - few rhonchi and wheezing appreciated in posterior lung chase Abdominal: NL Sounds; No Tenderness; No Distention Extremities: No Edema Skin: No Rash or Ulcers Neurological: Alert and Oriented x 3 Result Diagrams: 05/12/16 08:15 05/13/16 08:21 Additional Lab and Data: . Microbiology and Other Data: Microbiology 05/12/16 02:20 Nasal Screen MRSA (PCR)(BERNABE) - Final Nasal Mrsa Negative Diagnostic Imaging: CXR - NAD Assess/Plan/Problems-Billing Assessment: This is an 80 yo female with asthma, Parkinsons, asthma, HTN, hypothyroidism and depression who presented with cough and shortness of breath. She has been admitted for an asthma exacerbation secondary to influenza A infection. - Patient Problems (1) Asthma exacerbation Comment: Secondary to influenza A Oxygenating fairly well at this time Energy is improving and she's getting up and ambulating Cont prednisone and Advair with Tamiflu (2) Influenza A virus present Comment: Afebrile since admission Tamiflu has been initiated (3) Dementia Comment: Likely Lewey body No significant behavioral concerns (4) HTN (hypertension) Comment: Normotensive at this time Triamterene/HCTZ has been continued at this time (5) Parkinson disease Comment: Mild tremor noted Sinemet at home doses has been continued (6) Hypothyroid Comment: Cont levothyroxine (7) DNR (do not resuscitate) Comment: DNR/DNI, reviewed with patient's daughter who is her HCP Status and Disposition: She looks much improved, but still feels quite fatigued. Likely ready for dc tomorrow back to assisted living at [place].
[2016-05-14] MEDS ORDERED: Sulfamethox/Trimethoprim DS 800/160* TAB PO ONE (14:30)
[2016-05-14] MEDS: Sertraline* 100 MG TAB PO SCH (15:56)
[2016-05-14] MEDS: Carbidopa/Levodop CR 50/200(*) TAB.CR PO SCH (19:43)
[2016-05-15] MEDS: Levothyroxine TAB* 50 MCG TAB PO SCH (06:40)
[2016-05-15] MEDS: Omeprazole CAP* 20 MG PO SCH (06:40)
[2016-05-15] MEDS: Heparin VIAL(*) 5000 UNITS/ML VIAL (FIVE THOUSAND) SUBCUT SCH ×3 (06:41→21:28)
[2016-05-15] MEDS: guaiFENesin ER TAB 600 MG PO SCH ×2 (09:26→20:19)
[2016-05-15] MEDS: Triamterene/HCTZ 75-50 MG* TAB PO SCH (09:26)
[2016-05-15] MEDS: Oseltamivir CAP* 30 MG CAP PO SCH ×2 (09:26→20:19)
[2016-05-15] MEDS: predniSONE TAB* 20 MG PO SCH (09:26)
[2016-05-15] MEDS: Carbidopa/Levodop 25/100 MG TAB(*) PO SCH ×3 (09:26→16:08)
[2016-05-15] MEDS: Docusate CAP* 100 MG PO SCH ×2 (09:26→20:19)
[2016-05-15] MEDS: Mometasone/Formoter 200/5 MDI INH SCH ×2 (09:56→20:32)
[2016-05-15] MEDS: Tiotropium CAP.INH* CAP.INH/18 MCG (USE ORDER SET !) INH SCH (09:56)
--- NOTE | 2016-05-15 11:32 | PN ---
Subjective Date of Service: 05/15/16 Interval History: patient reports she is feeling much better but has continued weakness. no fevers or chills. Reports appetite is coming back. No cough, sob or CP. Objective Active Medications: Acetaminophen (Tylenol Tab*) 650 mg PO Q6H PRN PRN Reason: FEVER/PAIN Albuterol (Ventolin 2.5 Mg/3 Ml Neb.Madisyn*) 2.5 mg INH Q2H PRN PRN Reason: SOB/WHEEZING Carbidopa/Levodopa (Sinemet 25/100 Tab(*)) 1.5 tab PO 0800,1200,1600 [facility] Last Admin: 05/15/16 09:26 Dose: 1.5 tab Carbidopa/Levodopa (Sinemet Cr 50/200(*)) 1 tab.cr PO 1900 [facility] Last Admin: 05/14/16 19:43 Dose: 1 tab.cr Docusate Sodium (Colace Cap*) 200 mg PO BID [facility] Last Admin: 05/15/16 09:26 Dose: 200 mg Guaifenesin (Mucinex*) 1,200 mg PO BID [facility] Last Admin: 05/15/16 09:26 Dose: 1,200 mg Heparin Sodium (Porcine) (Heparin Vial(*)) 5,000 units SUBCUT Q8HR [facility] Last Admin: 05/15/16 06:41 Dose: 5,000 units Levothyroxine Sodium (Synthroid Tab*) 50 mcg PO 0600 [facility] Last Admin: 05/15/16 06:40 Dose: 50 mcg Melatonin (Melatonin (Nf)) 3 mg PO BEDTIME PRN; Protocol PRN Reason: Sleep Mometasone Furoate/Formoterol Fumar (Dulera 200/5 Mdi*) 2 puff INH BID [facility] Last Admin: 05/15/16 09:56 Dose: 2 puff Omeprazole (Prilosec Cap*) 20 mg PO DAILY@0600 [facility] Last Admin: 05/15/16 06:40 Dose: 20 mg Ondansetron HCl (Zofran Inj*) 4 mg IV Q6H PRN PRN Reason: NAUSEA Oseltamivir Phosphate (Tamiflu Cap*) 30 mg PO BID [facility] Stop: 05/16/16 21:01 Last Admin: 05/15/16 09:26 Dose: 30 mg Prednisone (Deltasone Tab*) 40 mg PO DAILY [facility] Last Admin: 05/15/16 09:26 Dose: 40 mg Sertraline HCl (Zoloft*) 100 mg PO 1600 [facility] Last Admin: 05/14/16 15:56 Dose: 100 mg Tiotropium [place] (Spiriva Cap.Inh*) 1 cap INH DAILY [facility] Last Admin: 05/15/16 09:56 Dose: 1 cap Triamterene/HCTZ (Maxzide 75-50*) 1 tab PO 0800 [facility] Last Admin: 05/15/16 09:26 Dose: 1 tab Vital Signs 05/14/16 05/14/16 05/14/16 16:16 16:21 16:59 Temperature 97.7 F Pulse Rate 88 Respiratory 22 Rate Blood Pressure 149/72 (mmHg) O2 Sat by Pulse 89 93 97 Oximetry 05/14/16 05/14/16 05/15/16 20:00 23:39 00:00 Temperature 98.0 F Pulse Rate 77 78 Respiratory 16 20 Rate Blood Pressure 133/58 (mmHg) O2 Sat by Pulse 96 92 96 Oximetry 05/15/16 05/15/16 05/15/16 02:57 07:51 09:59 Temperature 97.2 F Pulse Rate 74 74 Respiratory 18 17 16 Rate Blood Pressure 144/69 (mmHg) O2 Sat by Pulse 96 92 Oximetry Oxygen Devices in Use Now: Nasal Cannula Appearance: eldelry female sitting up in bed in NAD. A+O x3 Eyes: No Scleral Icterus, PERRLA Ears/Nose/Mouth/Throat: NL Teeth, Lips, Gums, Mucous Membranes Moist Neck: NL Appearance and Movements; NL JVP Respiratory: Symmetrical Chest Expansion and Respiratory Effort, Clear to Auscultation, - Cardiovascular: NL Sounds; No Murmurs; No JVD, RRR, No Edema Abdominal: NL Sounds; No Tenderness; No Distention Lymphatic: No Cervical Adenopathy Extremities: No Edema, No Clubbing, Cyanosis Skin: No Rash or Ulcers, No Nodules or Sclerosis Neurological: Alert and Oriented x 3, NL Sensation, NL Muscle Strength and Tone Lines/Tubes/Other Access: Clean, Dry and Intact Peripheral IV Nutrition: Taking PO's Result Diagrams: 05/12/16 08:15 05/13/16 08:21 Additional Lab and Data: . Microbiology and Other Data: Microbiology 05/12/16 02:20 Nasal Screen MRSA (PCR)(BERNABE) - Final Nasal Mrsa Negative Diagnostic Imaging: CXR - NAD Assess/Plan/Problems-Billing Assessment: This is an 80 yo female with asthma, Parkinsons, asthma, HTN, hypothyroidism and depression who presented with cough and shortness of breath. She has been admitted for an asthma exacerbation secondary to influenza A infection. - Patient Problems (1) Influenza A virus present Comment: Afebrile since admission. Generalized weakness, improving slowly. Plan for PT eval. Negative blood cx Continue Tamiflu (2) Asthma exacerbation Comment: Secondary to influenza A Oxygenating well on RA Cont prednisone and Advair (3) Dementia Comment: Likely Lewey body No significant behavioral concerns (4) Dehydration Comment: Resolved. (5) HTN (hypertension) Comment: Normotensive at this time Triamterene/HCTZ has been continued at this time (6) Parkinson disease Comment: Mild tremor noted Sinemet at home doses has been continued (7) Hypothyroid Comment: Cont levothyroxine (8) DNR (do not resuscitate) Comment: DNR/DNI, reviewed with patient's daughter who is her HCP (9) DVT prophylaxis Comment: heparin sc Status and Disposition: Inpatient. Plan for PT eval to assess patients safety and ambulation prior to returning to [place].
[2016-05-15] MEDS: Sertraline* 100 MG TAB PO SCH (16:08)
[2016-05-15] MEDS: Carbidopa/Levodop CR 50/200(*) TAB.CR PO SCH (19:52)
[2016-05-16] MEDS: Levothyroxine TAB* 50 MCG TAB PO SCH (05:32)
[2016-05-16] MEDS: Omeprazole CAP* 20 MG PO SCH (05:32)
[2016-05-16] MEDS: Heparin VIAL(*) 5000 UNITS/ML VIAL (FIVE THOUSAND) SUBCUT SCH ×3 (05:33→21:35)
[2016-05-16 06:23] LABS: Hematocrit 39 % (35-47); Hemoglobin 12.6 g/dl (12.0-16.0); Mean Corpuscular HGB Conc 33 g/dl (31-36); Mean Corpuscular Hemoglobin 26 pg (27-31); Mean Corpuscular Volume 79 fL (80-97); Mean Platelet Volume 7 um3 (7.4-10.4); Red Blood Count 4.85 10^6/ul (4.0-5.4); Red Cell Distribution Width 16 % (10.5-15)
[2016-05-16 06:40] LABS: BUN/Creatinine Ratio 29.5 (8-20); Calcium 9.3 mg/dL (8.6-10.3); EGFR African American 59.9 (>60); EGFR Non-African American 46.6 (>60); Potassium 3.2 mmol/L (3.5-5.0)
[2016-05-16] MEDS: Docusate CAP* 100 MG PO SCH ×2 (08:07→20:45)
[2016-05-16] MEDS: Tiotropium CAP.INH* CAP.INH/18 MCG (USE ORDER SET !) INH SCH (08:08)
[2016-05-16] MEDS: Oseltamivir CAP* 30 MG CAP PO SCH ×2 (08:08→20:45)
[2016-05-16] MEDS: guaiFENesin ER TAB 600 MG PO SCH ×2 (08:10→20:45)
[2016-05-16] MEDS: Carbidopa/Levodop 25/100 MG TAB(*) PO SCH ×3 (08:12→16:09)
[2016-05-16] MEDS: predniSONE TAB* 20 MG PO SCH (08:13)
[2016-05-16] MEDS: Mometasone/Formoter 200/5 MDI INH SCH ×2 (08:15→21:00)
[2016-05-16] MEDS: Triamterene/HCTZ 75-50 MG* TAB PO SCH (08:16)
[2016-05-16] MEDS ORDERED: Potassium Chlor TAB* 20 MEQ TAB.ER PO ONE (16:00)
[2016-05-16] MEDS: Sertraline* 100 MG TAB PO SCH (16:08)
--- NOTE | 2016-05-16 16:51 | PN ---
Subjective Date of Service: 05/16/16 Interval History: patient reports she has continued weakness but is feeling better yesterday. No fevers or chills. no cough, sob or CP. reports appetite is improving. Does not feel ready to go home due to feeling weak. Objective Active Medications: Acetaminophen (Tylenol Tab*) 650 mg PO Q6H PRN PRN Reason: FEVER/PAIN Albuterol (Ventolin 2.5 Mg/3 Ml Neb.Madisyn*) 2.5 mg INH Q2H PRN PRN Reason: SOB/WHEEZING Carbidopa/Levodopa (Sinemet 25/100 Tab(*)) 1.5 tab PO 0800,1200,1600 [facility] Last Admin: 05/16/16 16:09 Dose: 1.5 tab Carbidopa/Levodopa (Sinemet Cr 50/200(*)) 1 tab.cr PO 1900 [facility] Last Admin: 05/15/16 19:52 Dose: 1 tab.cr Docusate Sodium (Colace Cap*) 200 mg PO BID [facility] Last Admin: 05/16/16 08:07 Dose: 200 mg Guaifenesin (Mucinex*) 1,200 mg PO BID [facility] Last Admin: 05/16/16 08:10 Dose: 1,200 mg Heparin Sodium (Porcine) (Heparin Vial(*)) 5,000 units SUBCUT Q8HR [facility] Last Admin: 05/16/16 14:10 Dose: 5,000 units Levothyroxine Sodium (Synthroid Tab*) 50 mcg PO 0600 [facility] Last Admin: 05/16/16 05:32 Dose: 50 mcg Melatonin (Melatonin (Nf)) 3 mg PO BEDTIME PRN; Protocol PRN Reason: Sleep Mometasone Furoate/Formoterol Fumar (Dulera 200/5 Mdi*) 2 puff INH BID [facility] Last Admin: 05/16/16 08:15 Dose: 2 puff Omeprazole (Prilosec Cap*) 20 mg PO DAILY@0600 [facility] Last Admin: 05/16/16 05:32 Dose: 20 mg Ondansetron HCl (Zofran Inj*) 4 mg IV Q6H PRN PRN Reason: NAUSEA Oseltamivir Phosphate (Tamiflu Cap*) 30 mg PO BID [facility] Stop: 05/16/16 21:01 Last Admin: 05/16/16 08:08 Dose: 30 mg Prednisone (Deltasone Tab*) 40 mg PO DAILY [facility] Last Admin: 05/16/16 08:13 Dose: 40 mg Sertraline HCl (Zoloft*) 100 mg PO 1600 [facility] Last Admin: 05/16/16 16:08 Dose: 100 mg Tiotropium [place] (Spiriva Cap.Inh*) 1 cap INH DAILY [facility] Last Admin: 05/16/16 08:08 Dose: 1 cap Triamterene/HCTZ (Maxzide 75-50*) 1 tab PO 0800 [facility] Last Admin: 05/16/16 08:16 Dose: 1 tab Vital Signs 05/15/16 05/15/16 05/15/16 16:49 20:00 20:33 Temperature Pulse Rate 73 Respiratory 17 Rate Blood Pressure (mmHg) O2 Sat by Pulse 91 91 Oximetry 05/15/16 05/16/16 05/16/16 23:56 00:08 07:18 Temperature 97.5 F 97.9 F Pulse Rate 81 88 Respiratory 18 18 Rate Blood Pressure 150/70 143/75 (mmHg) O2 Sat by Pulse 93 90 Oximetry 05/16/16 05/16/16 05/16/16 08:00 09:02 09:03 Temperature Pulse Rate 88 Respiratory 19 18 Rate Blood Pressure (mmHg) O2 Sat by Pulse 90 90 Oximetry 05/16/16 13:43 Temperature 97.4 F Pulse Rate 95 Respiratory 24 Rate Blood Pressure 129/68 (mmHg) O2 Sat by Pulse 92 Oximetry Oxygen Devices in Use Now: Nasal Cannula Appearance: 80 yo female laying in bed in NAD. A+O x3 Eyes: No Scleral Icterus, PERRLA Ears/Nose/Mouth/Throat: NL Teeth, Lips, Gums, Mucous Membranes Moist Neck: NL Appearance and Movements; NL JVP Respiratory: Symmetrical Chest Expansion and Respiratory Effort, Clear to Auscultation Cardiovascular: NL Sounds; No Murmurs; No JVD, RRR, No Edema Abdominal: NL Sounds; No Tenderness; No Distention Lymphatic: No Cervical Adenopathy Extremities: No Edema, No Clubbing, Cyanosis Skin: No Rash or Ulcers, No Nodules or Sclerosis Neurological: Alert and Oriented x 3, NL Sensation, NL Muscle Strength and Tone Lines/Tubes/Other Access: Clean, Dry and Intact Peripheral IV Nutrition: Taking PO's Result Diagrams: 05/16/16 06:01 05/16/16 06:01 Additional Lab and Data: . Microbiology and Other Data: Microbiology 05/12/16 02:20 Nasal Screen MRSA (PCR)(BERNABE) - Final Nasal Mrsa Negative Diagnostic Imaging: CXR - NAD Assess/Plan/Problems-Billing Assessment: This is an 80 yo female with asthma, Parkinsons, asthma, HTN, hypothyroidism and depression who presented with cough and shortness of breath. She has been admitted for an asthma exacerbation secondary to influenza A infection. - Patient Problems (1) Influenza A virus present Comment: Afebrile since admission. Generalized weakness, improving slowly. PT reports she needs assistance and some cueing. I think the patient will benefit from subacute Negative blood cx Continue Tamiflu (2) Asthma exacerbation Comment: Secondary to influenza A Oxygenating well on RA Cont prednisone and Advair (3) Dementia Comment: Likely Lewey body No significant behavioral concerns (4) Dehydration Comment: Resolved. (5) HTN (hypertension) Comment: Normotensive at this time Triamterene/HCTZ has been continued at this time (6) Parkinson disease Comment: Mild tremor noted Sinemet at home doses has been continued (7) Hypothyroid Comment: Cont levothyroxine (8) DNR (do not resuscitate) Comment: DNR/DNI, reviewed with patient's daughter who is her HCP (9) DVT prophylaxis Comment: heparin sc Status and Disposition: Inpatient. Plan for PT eval to assess patients safety and ambulation prior to returning to [place]. PMRU eval
[2016-05-16] MEDS: Carbidopa/Levodop CR 50/200(*) TAB.CR PO SCH (19:15)
[2016-05-17] MEDS: Heparin VIAL(*) 5000 UNITS/ML VIAL (FIVE THOUSAND) SUBCUT SCH ×3 (05:34→22:01)
[2016-05-17] MEDS: Levothyroxine TAB* 50 MCG TAB PO SCH (05:34)
[2016-05-17] MEDS: Omeprazole CAP* 20 MG PO SCH (05:34)
[2016-05-17 06:32] LABS: Hematocrit 40 % (35-47); Hemoglobin 13.2 g/dl (12.0-16.0); Mean Corpuscular HGB Conc 33 g/dl (31-36); Mean Corpuscular Hemoglobin 26 pg (27-31); Mean Corpuscular Volume 79 fL (80-97); Mean Platelet Volume 7 um3 (7.4-10.4); Red Blood Count 5.11 10^6/ul (4.0-5.4); Red Cell Distribution Width 16 % (10.5-15); White Blood Count 10.3 10^3/ul (3.5-10.8)
[2016-05-17 06:55] LABS: BUN/Creatinine Ratio 27.1 (8-20); Calcium 9.7 mg/dL (8.6-10.3); EGFR African American 63.1 (>60); EGFR Non-African American 49.1 (>60); Potassium 3.9 mmol/L (3.5-5.0)
[2016-05-17] MEDS: Mometasone/Formoter 200/5 MDI INH SCH ×2 (09:10→20:29)
[2016-05-17] MEDS: Tiotropium CAP.INH* CAP.INH/18 MCG (USE ORDER SET !) INH SCH (09:10)
[2016-05-17] MEDS: guaiFENesin ER TAB 600 MG PO SCH ×2 (09:42→19:42)
[2016-05-17] MEDS: Docusate CAP* 100 MG PO SCH ×2 (09:42→19:42)
[2016-05-17] MEDS: Carbidopa/Levodop 25/100 MG TAB(*) PO SCH ×3 (09:42→17:43)
[2016-05-17] MEDS: predniSONE TAB* 20 MG PO SCH (09:42)
[2016-05-17] MEDS: Triamterene/HCTZ 75-50 MG* TAB PO SCH (09:43)
--- NOTE | 2016-05-17 12:59 | PN ---
Subjective Date of Service: 05/17/16 Interval History: pt reports she feels better today, reporting she feels stronger but still feels too weak to go home. feels wheezy, denies SOB. Reports non productive cough. No fevers or chills. Appetite is improving. No N/V/D. Objective Active Medications: Acetaminophen (Tylenol Tab*) 650 mg PO Q6H PRN PRN Reason: FEVER/PAIN Albuterol (Ventolin 2.5 Mg/3 Ml Neb.Madisyn*) 2.5 mg INH Q2H PRN PRN Reason: SOB/WHEEZING Carbidopa/Levodopa (Sinemet 25/100 Tab(*)) 1.5 tab PO 0800,1200,1600 [facility] Last Admin: 05/17/16 09:42 Dose: 1.5 tab Carbidopa/Levodopa (Sinemet Cr 50/200(*)) 1 tab.cr PO 1900 [facility] Last Admin: 05/16/16 19:15 Dose: 1 tab.cr Docusate Sodium (Colace Cap*) 200 mg PO BID [facility] Last Admin: 05/17/16 09:42 Dose: 200 mg Guaifenesin (Mucinex*) 1,200 mg PO BID [facility] Last Admin: 05/17/16 09:42 Dose: 1,200 mg Heparin Sodium (Porcine) (Heparin Vial(*)) 5,000 units SUBCUT Q8HR [facility] Last Admin: 05/17/16 05:34 Dose: 5,000 units Levothyroxine Sodium (Synthroid Tab*) 50 mcg PO 0600 [facility] Last Admin: 05/17/16 05:34 Dose: 50 mcg Melatonin (Melatonin (Nf)) 3 mg PO BEDTIME PRN; Protocol PRN Reason: Sleep Mometasone Furoate/Formoterol Fumar (Dulera 200/5 Mdi*) 2 puff INH BID [facility] Last Admin: 05/17/16 09:10 Dose: 2 puff Omeprazole (Prilosec Cap*) 20 mg PO DAILY@0600 [facility] Last Admin: 05/17/16 05:34 Dose: 20 mg Ondansetron HCl (Zofran Inj*) 4 mg IV Q6H PRN PRN Reason: NAUSEA Sertraline HCl (Zoloft*) 100 mg PO 1600 [facility] Last Admin: 05/16/16 16:08 Dose: 100 mg Tiotropium [place] (Spiriva Cap.Inh*) 1 cap INH DAILY [facility] Last Admin: 05/17/16 09:10 Dose: 1 cap Triamterene/HCTZ (Maxzide 75-50*) 1 tab PO 0800 [facility] Last Admin: 05/17/16 09:43 Dose: 1 tab Vital Signs 05/16/16 05/16/16 05/16/16 13:43 20:00 21:01 Temperature 97.4 F Pulse Rate 95 91 Respiratory 24 18 14 Rate Blood Pressure 129/68 (mmHg) O2 Sat by Pulse 92 92 Oximetry 05/16/16 05/17/16 05/17/16 23:32 07:25 08:00 Temperature 97.8 F 97.5 F Pulse Rate 91 85 Respiratory 18 16 16 Rate Blood Pressure 134/73 133/73 (mmHg) O2 Sat by Pulse 91 94 Oximetry 05/17/16 05/17/16 09:12 11:53 Temperature Pulse Rate 90 87 Respiratory 18 Rate Blood Pressure 123/69 (mmHg) O2 Sat by Pulse 92 97 Oximetry Oxygen Devices in Use Now: Nasal Cannula Appearance: Eldelry female sitting up in bed eating lunch in NAD. A+O x3 Eyes: No Scleral Icterus, PERRLA Ears/Nose/Mouth/Throat: NL Teeth, Lips, Gums, Mucous Membranes Moist Neck: NL Appearance and Movements; NL JVP Respiratory: Symmetrical Chest Expansion and Respiratory Effort, - - scattered rhonchi throughout though good air movement - no wheezes noted Cardiovascular: NL Sounds; No Murmurs; No JVD, RRR, No Edema Abdominal: NL Sounds; No Tenderness; No Distention Extremities: No Edema, No Clubbing, Cyanosis Skin: No Rash or Ulcers, No Nodules or Sclerosis Neurological: Alert and Oriented x 3, NL Sensation, NL Muscle Strength and Tone Lines/Tubes/Other Access: Clean, Dry and Intact Peripheral IV Nutrition: Taking PO's Result Diagrams: 05/17/16 06:09 05/17/16 06:09 Additional Lab and Data: . Microbiology and Other Data: Microbiology 05/12/16 02:20 Nasal Screen MRSA (PCR)(BERNABE) - Final Nasal Mrsa Negative Diagnostic Imaging: CXR - NAD Assess/Plan/Problems-Billing Assessment: This is an 80 yo female with asthma, Parkinsons, asthma, HTN, hypothyroidism and depression who presented with cough and shortness of breath. She has been admitted for an asthma exacerbation secondary to influenza A infection. - Patient Problems (1) Influenza A virus present Comment: Afebrile since admission. Generalized weakness, improving slowly. PT reports she needs assistance and some cueing. I think the patient will benefit from subacute Negative blood cx Tamiflu course finished (2) Asthma exacerbation Comment: Secondary to influenza A Oxygenating well on RA Cont prednisone, Advair, nebs (3) Dementia Comment: Likely Lewey body No significant behavioral concerns (4) Dehydration Comment: Resolved. (5) HTN (hypertension) Comment: Normotensive at this time Triamterene/HCTZ has been continued at this time (6) Parkinson disease Comment: Mild tremor noted Sinemet at home doses has been continued (7) Hypothyroid Comment: Cont levothyroxine (8) DNR (do not resuscitate) Comment: DNR/DNI, reviewed with patient's daughter who is her HCP (9) DVT prophylaxis Comment: heparin sc Status and Disposition: Inpatient. Pt mets for subacute. PMRU eval pending
--- NOTE | 2016-05-17 17:05 | RAD ---
Indication: Hypoxia. Asthma exacerbation. Influenza A+. Hypokalemia. Comparison: May 11, 2016 Technique: Sitting AP and lateral chest views. Report: Rightward rotation noted. Elevated lung volumes and mild prominence and rarefaction of the interstitial markings. No alveolar consolidation, focal pulmonary lesion, pleural effusion, pneumothorax. Cardiomegaly. Epicardial fat pads noted. Unremarkable central pulmonary vasculature. Mildly tortuous thoracic aorta. IMPRESSION: Stigmata of chronic obstructive pulmonary disease. No compelling evidence for pneumonia. Cardiomegaly without evidence for pulmonary edema.
[2016-05-17] MEDS: Sertraline* 100 MG TAB PO SCH (17:43)
[2016-05-17] MEDS: Carbidopa/Levodop CR 50/200(*) TAB.CR PO SCH (19:43)
[2016-05-18] MEDS: Benzonatate CAP* 100 MG PO PRN (01:25)
[2016-05-18] MEDS: Heparin VIAL(*) 5000 UNITS/ML VIAL (FIVE THOUSAND) SUBCUT SCH ×3 (06:24→20:30)
[2016-05-18] MEDS: Levothyroxine TAB* 50 MCG TAB PO SCH (06:24)
[2016-05-18] MEDS: Omeprazole CAP* 20 MG PO SCH (06:24)
[2016-05-18] MEDS: Triamterene/HCTZ 75-50 MG* TAB PO SCH (09:19)
[2016-05-18] MEDS: guaiFENesin ER TAB 600 MG PO SCH ×2 (09:20→19:59)
[2016-05-18] MEDS: Docusate CAP* 100 MG PO SCH ×2 (09:20→19:59)
[2016-05-18] MEDS: Carbidopa/Levodop 25/100 MG TAB(*) PO SCH ×3 (09:37→16:12)
[2016-05-18] MEDS: Mometasone/Formoter 200/5 MDI INH SCH ×3 (09:57→19:32)
[2016-05-18] MEDS: Tiotropium CAP.INH* CAP.INH/18 MCG (USE ORDER SET !) INH SCH (09:57)
[2016-05-18] MEDS: Albuterol 2.5 MG/3 ML NEB.SOL* (0.083%) INH PRN ×3 (09:57→19:09)
[2016-05-18] MEDS ORDERED: NS 0.9% 500 ML* 500 ML IV SCH (12:00)
--- NOTE | 2016-05-18 12:13 | PN ---
Subjective Date of Service: 05/18/16 Interval History: 0900: pt evaluated at the bedside. She reports she continues to feel weak and agrees with subacute. Denied SOB. No fevers or chills. No N/V/D 1145: I was called to the patients room for her "not feeling well". I evaluated the patient at the bedside - she had just been on the bedside commode when she was getting back to bed after having a BM and started to not feel well - it was hard for her to tell me why she didnt feel well. She denies CP. Reports dizziness, SOB and weakness. O2 sat 80% on 3L, lungs were diminished with crackles to the RLL and exp wheezing noted. She was given a nebulizer and then placed on an oxy mask by RT. VSS: 130/60, HR 101, )2 sat 93% on 10 L oxymask, RR 30. EKG: showed: sinus rhythm with no acute changes from prior. She was placed on bedside pulse oximetry which did show HR 90-low 100's. Chest xray was performed showing no acute pathology. Trop negative. Patient was given 2 mg morphine as she appeared SOB, and very anxious. After neb pt's O2 sat increased 98%. Spoke to daughter Samara who came to the hospital. The pts MOLST is DNR/DNI with limited interventions. She reports she has been declining over the past 2 years and notes this illness has really set her back. Objective Active Medications: Acetaminophen (Tylenol Tab*) 650 mg PO Q6H PRN PRN Reason: FEVER/PAIN Albuterol (Ventolin 2.5 Mg/3 Ml Neb.Madisyn*) 2.5 mg INH Q2H PRN PRN Reason: SOB/WHEEZING Last Admin: 05/18/16 12:06 Dose: 2.5 mg Benzonatate (Tessalon Cap*) 100 mg PO TID PRN PRN Reason: COUGH Last Admin: 05/18/16 01:25 Dose: 100 mg Carbidopa/Levodopa (Sinemet 25/100 Tab(*)) 1.5 tab PO 0800,1200,1600 [facility] Last Admin: 05/18/16 09:37 Dose: 1.5 tab Carbidopa/Levodopa (Sinemet Cr 50/200(*)) 1 tab.cr PO 1900 [facility] Last Admin: 05/17/16 19:43 Dose: 1 tab.cr Docusate Sodium (Colace Cap*) 200 mg PO BID [facility] Last Admin: 05/18/16 09:20 Dose: 200 mg Guaifenesin (Mucinex*) 1,200 mg PO BID [facility] Last Admin: 05/18/16 09:20 Dose: 1,200 mg Heparin Sodium (Porcine) (Heparin Vial(*)) 5,000 units SUBCUT Q8HR [facility] Last Admin: 05/18/16 06:24 Dose: 5,000 units Sodium Chloride (Ns 0.9% 500 Ml Bag*) 500 mls @ 1,000 mls/hr IV .BOLUS [facility] Levothyroxine Sodium (Synthroid Tab*) 50 mcg PO 0600 [facility] Last Admin: 05/18/16 06:24 Dose: 50 mcg Melatonin (Melatonin (Nf)) 3 mg PO BEDTIME PRN; Protocol PRN Reason: Sleep Mometasone Furoate/Formoterol Fumar (Dulera 200/5 Mdi*) 2 puff INH BID [facility] Last Admin: 05/18/16 09:57 Dose: 2 puff Morphine Sulfate (Morphine Inj (Syringe)*) 2 mg IV Q4H PRN PRN Reason: PAIN - MILD Omeprazole (Prilosec Cap*) 20 mg PO DAILY@0600 [facility] Last Admin: 05/18/16 06:24 Dose: 20 mg Ondansetron HCl (Zofran Inj*) 4 mg IV Q6H PRN PRN Reason: NAUSEA Sertraline HCl (Zoloft*) 100 mg PO 1600 [facility] Last Admin: 05/17/16 17:43 Dose: 100 mg Tiotropium [place] (Spiriva Cap.Inh*) 1 cap INH DAILY [facility] Last Admin: 05/18/16 09:57 Dose: 1 cap Triamterene/HCTZ (Maxzide 75-50*) 1 tab PO 0800 [facility] Last Admin: 05/18/16 09:19 Dose: 1 tab Vital Signs 05/17/16 05/17/16 05/17/16 16:21 20:00 23:38 Temperature 97.6 F 97.5 F Pulse Rate 96 91 90 Respiratory 20 16 16 Rate Blood Pressure 128/70 121/71 (mmHg) O2 Sat by Pulse 92 94 96 Oximetry 05/18/16 05/18/16 05/18/16 00:00 07:46 10:01 Temperature 97.9 F Pulse Rate 91 94 Respiratory 18 20 Rate Blood Pressure 145/72 (mmHg) O2 Sat by Pulse 94 96 92 Oximetry 05/18/16 05/18/16 05/18/16 11:25 11:47 11:54 Temperature Pulse Rate 94 88 Respiratory 16 Rate Blood Pressure 153/64 91/64 130/60 (mmHg) O2 Sat by Pulse 93 89 Oximetry 05/18/16 05/18/16 05/18/16 11:56 12:07 12:10 Temperature 99.2 F Pulse Rate 102 Respiratory 24 Rate Blood Pressure (mmHg) O2 Sat by Pulse 88 92 Oximetry Oxygen Devices in Use Now: Nasal Cannula Appearance: 80 yo female A+O x3 appears dyspneic, anxious. Eyes: No Scleral Icterus, PERRLA Ears/Nose/Mouth/Throat: NL Teeth, Lips, Gums, Mucous Membranes Moist Neck: NL Appearance and Movements; NL JVP Respiratory: Symmetrical Chest Expansion and Respiratory Effort, - - RLL crackles, exp wheezing - on re-evaluation after neb: rhonchi, no wheezes noted. No accessory muscle use Cardiovascular: NL Sounds; No Murmurs; No JVD, RRR, No Edema Abdominal: NL Sounds; No Tenderness; No Distention Extremities: No Edema, No Clubbing, Cyanosis Skin: No Rash or Ulcers, No Nodules or Sclerosis Neurological: Alert and Oriented x 3, - - noted generalized weakness. No facial droop, tongue is midline. Lines/Tubes/Other Access: Clean, Dry and Intact Peripheral IV Nutrition: Taking PO's Result Diagrams: 05/18/16 12:13 05/18/16 12:13 Additional Lab and Data: . Microbiology and Other Data: Microbiology 05/12/16 02:20 Nasal Screen MRSA (PCR)(BERNABE) - Final Nasal Mrsa Negative Diagnostic Imaging: CXR - NAD Assess/Plan/Problems-Billing Assessment: This is an 80 yo female with asthma, Parkinsons, asthma, HTN, hypothyroidism and depression who presented with cough and shortness of breath. She has been admitted for an asthma exacerbation secondary to influenza A infection. - Patient Problems (1) SOB (shortness of breath) Comment: - suspect her acute episode was a combination of vasovagal secondary to hypovolemia and bronchospasms. - chest xray showing no acute infiltrate - DDIMER 300 but age adjusted is negative, low suspicion for PE. - Resolved with nebulizer, morphine. (2) Influenza A virus present Comment: Afebrile since admission. Generalized weakness, slow to improve. Negative blood cx Tamiflu course finished (3) Dehydration Comment: - labs today after acute episode suspect dehydration: pt appears dry and had been continued on her HCTZ, I suspect she has not been able to keep up with fluid requirements. BNP was noted to be elevated today after acite episode but suspect pt is dry and needs fluids. - Lactic 2.5 - suspect 2nd to dehydration. plan for 1 liter NS, repeat labs in am. (4) Asthma exacerbation Comment: - COPD noted on chest xray - Secondary to influenza A - Cont prednisone, Advair, nebs (5) Dementia Comment: Likely Lewey body No significant behavioral concerns, A+O x3 with mild confusion (6) HTN (hypertension) Comment: Normotensive at this time Triamterene/HCTZ has been discontinued at this time (7) Parkinson disease Comment: Mild tremor noted Sinemet at home doses has been continued (8) Hypothyroid Comment: Cont levothyroxine (9) DNR (do not resuscitate) Comment: DNR/DNI, reviewed with patient's daughter who is her HCP Limited Interventions. (10) DVT prophylaxis Comment: heparin sc Status and Disposition: Inpatient. Pt mets for subacute. Daughter would like pt to go back to [place] with private aide and PT - to be determined if that is a possibility
[2016-05-18 12:23] LABS: Hematocrit 42 % (35-47); Hemoglobin 13.7 g/dl (12.0-16.0); Mean Corpuscular HGB Conc 33 g/dl (31-36); Mean Corpuscular Hemoglobin 26 pg (27-31); Mean Corpuscular Volume 80 fL (80-97); Mean Platelet Volume 7 um3 (7.4-10.4); Red Blood Count 5.22 10^6/ul (4.0-5.4); Red Cell Distribution Width 16 % (10.5-15); White Blood Count 10.3 10^3/ul (3.5-10.8)
[2016-05-18] MEDS: Morphine INJ* 2 MG/ML 1 ML CARPUJECT IV PRN (12:23)
[2016-05-18] MEDS ORDERED: Ondansetron INJ* 2 MG/ML VIAL ONE (12:32)
--- NOTE | 2016-05-18 12:37 | RAD ---
INDICATION: Weakness COMPARISON: May 17, 2016 TECHNIQUE: An AP portable view obtained at 1214 hours is submitted. FINDINGS: Bones/Soft Tissues: There are no acute bony findings. Cardiomediastinal: The cardiomediastinal silhouette is normal in size. The right hilar and infrahilar structures are mildly prominent. This likely related to the pulmonary arteries. Suggest follow-up 2 view examination when the patient is clinically well. Lungs: There are no infiltrates. There are mild chronic interstitial changes. Pleura: There are no pleural effusions. Other: None IMPRESSION: NO ACUTE INFILTRATES. SUGGEST FOLLOW-UP OUTLINED ABOVE.
[2016-05-18 12:38] LABS: BUN/Creatinine Ratio 29.5 (8-20); Calcium 9.9 mg/dL (8.6-10.3); EGFR African American 59.9 (>60); EGFR Non-African American 46.6 (>60); Potassium 3.4 mmol/L (3.5-5.0)
[2016-05-18] MEDS ORDERED: NS 0.9% 1000 ML* 1,000 ML IV SCH ×2 (12:45→13:45)
[2016-05-18 12:54] LABS: Troponin I 0.01 ng/mL (<0.04)
[2016-05-18] MEDS ORDERED: KCL 20 MEQ/100 ML IVPREMIX* 20 MEQ/100 ML BAG IV ONE (13:07)
[2016-05-18 13:27] LABS: Magnesium 1.8 mg/dL (1.9-2.7)
[2016-05-18 16:06] LABS: Urine Bacteria Absent (Absent); Urine Bilirubin Negative (Negative); Urine Glucose Negative (Negative); Urine Nitrite Negative (Negative)
[2016-05-18] MEDS: Sertraline* 100 MG TAB PO SCH (16:07)
[2016-05-18] MEDS ORDERED: Magnesium Sulfate 2 GM IV* 2 GM/50 ML BAG IVPB ONE (17:07)
[2016-05-18] MEDS: Carbidopa/Levodop CR 50/200(*) TAB.CR PO SCH (18:19)
[2016-05-18] MEDS: Magnesium Oxide TAB* 400 MG PO SCH (19:59)
[2016-05-18] MEDS ORDERED: Furosemide IV* 10 MG/ML VIAL (40 MG) IV ONE (20:07)
--- NOTE | 2016-05-18 23:30 | PN ---
Progress Note - Progress Note Note: Cross-cover note: Patient here with influenza, has increasing dyspnea. Has been requiring more oxygen, now up to 11 l/min. Earlier had IVF stopped. Then had 40 mg IV lasix, has been making urine. Patient tachypneic, can nod yes/no, moderate resp distress Lungs: diffuse ronchi, no rales, scattered wheezes Heart; RRR, no murmur No peripheral edema CXR: unchanged Will transfer to ICU, initiate BiPAP Discussed with daughter Samara.
[2016-05-19] MEDS ORDERED: Norepinephrine VIAL* 1 MG/ML 4 ML VIAL ONE (00:18)
[2016-05-19 00:30] LABS: BIPAP YES; EPAP 8; FIO2 100; IPAP 16; PCO2 Arterial 38 mmHg (35-45); Patient Temp ABG 97; Resp Rate 14
[2016-05-19] MEDS: Morphine INJ* 2 MG/ML 1 ML CARPUJECT IV PRN ×4 (00:47→17:12)
[2016-05-19] MEDS: Ondansetron INJ* 2 MG/ML VIAL IV PRN ×2 (00:47→21:05)
[2016-05-19] MEDS ORDERED: cefTRIAXone VIAL(*) 1,000 MG in NS 0.9% 50 ML* 50 ML IVPB SCH (01:00)
[2016-05-19] MEDS: Azithromycin IV(*) 500 MG in NS 0.9% 250 ML* 250 ML IVPB SCH (01:26)
[2016-05-19 01:27] LABS: BUN/Creatinine Ratio 24.3 (8-20); Calcium 9.4 mg/dL (8.6-10.3); EGFR African American 42.1 (>60); EGFR Non-African American 32.7 (>60); Potassium 4.2 mmol/L (3.5-5.0)
[2016-05-19] MEDS: Oseltamivir CAP* 30 MG CAP PO SCH ×3 (01:30→19:59)
[2016-05-19] MEDS: Acetaminophen TAB* 325 MG PO PRN ×2 (01:30→19:59)
[2016-05-19] MEDS: methylPREDNISolone 125 MG* 2 ML VIAL IV SCH ×2 (01:38→12:52)
[2016-05-19] MEDS: Omeprazole CAP* 20 MG PO SCH (04:59)
[2016-05-19] MEDS: Heparin VIAL(*) 5000 UNITS/ML VIAL (FIVE THOUSAND) SUBCUT SCH ×3 (04:59→21:02)
[2016-05-19] MEDS: Levothyroxine TAB* 50 MCG TAB PO SCH (04:59)
[2016-05-19 05:47] LABS: Hematocrit 38 % (35-47); Hemoglobin 12.5 g/dl (12.0-16.0); Mean Corpuscular HGB Conc 33 g/dl (31-36); Mean Corpuscular Hemoglobin 26 pg (27-31); Mean Corpuscular Volume 80 fL (80-97); Mean Platelet Volume 8 um3 (7.4-10.4); Red Blood Count 4.79 10^6/ul (4.0-5.4); Red Cell Distribution Width 16 % (10.5-15); White Blood Count 23.8 10^3/ul (3.5-10.8)
[2016-05-19 05:58] LABS: BUN/Creatinine Ratio 24.4 (8-20); Calcium 9.2 mg/dL (8.6-10.3); EGFR African American 38.6 (>60); Magnesium 1.8 mg/dL (1.9-2.7); Potassium 4.3 mmol/L (3.5-5.0)
[2016-05-19 06:07] LABS: Add Diff/Slide Review? Slide Review Added; Comments Flag Yes
[2016-05-19] MEDS ORDERED: Magnesium Sulfate 2 GM IV* 2 GM/50 ML BAG IVPB ONE (06:08)
[2016-05-19] MEDS ORDERED: NS 0.9% 1000 ML* 1,000 ML IV SCH ×2 (06:15→08:33)
[2016-05-19 06:34] LABS: Eosinophils % 1 % (0-6); Immature Granulocytes 18 % (0-9); Neutrophil % 78 % (38-83); RBC Morphology Normal (Normal)
--- NOTE | 2016-05-19 07:12 | RAD ---
INDICATION: Worsening dyspnea. COMPARISON: Comparison is made with a prior study of the same date from approximately 10 hours earlier. Correlation is also made with an exam from one day earlier. TECHNIQUE: A portable view of the chest was obtained. FINDINGS: The heart appears upper limits of normal in size and unchanged from the prior exam. The lungs are underinflated. There is a new small infiltrate at the right lung base. No pleural effusion is seen. IMPRESSION: NEW SMALL RIGHT BASILAR INFILTRATE.
--- NOTE | 2016-05-19 08:02 | RAD ---
INDICATION: Shortness of breath, influenza. COMPARISON: Comparison is made with prior chest x-ray study from one day earlier. Correlation is also made with an exam from May 17, 2016. TECHNIQUE: A portable view of the chest was obtained. FINDINGS: The heart appears enlarged. There is elevation of the right hemidiaphragm and small infiltrates at both lung bases and suggestion of a small right pleural effusion. IMPRESSION: SMALL BIBASILAR INFILTRATES AND SMALL RIGHT PLEURAL EFFUSION DEMONSTRATING SLIGHT PROGRESSION.
--- NOTE | 2016-05-19 08:34 | PN ---
Subjective Date of Service: 05/19/16 Interval History: Patient seen and examined at bedside. Daughter, Samara, at bedside with patient. She reports that the patient had increasing shortness of breath last evening and had complaint of right flank pain, which the patient now denies. Ms. Woods was transferred to ICU and placed on BiPAP, which she apparently did not tolerate well. Patient was transitioned to Vapotherm and reports feeling more comfortable. She denies CP, SOB, abd pain, flank pain, n/v, dysuria. She reports feeling warm. Telemetry: SR 90s O2 Sat: 92-95% on 40L, 100% FiO2 Family History: Unchanged from Admission Social History: Unchanged from Admission Past Medical History: Unchanged from Admission Objective Active Medications: Acetaminophen (Tylenol Tab*) 650 mg PO Q6H PRN PRN Reason: FEVER/PAIN Last Admin: 05/19/16 01:30 Dose: 650 mg Albuterol (Ventolin 2.5 Mg/3 Ml Neb.Madisyn*) 2.5 mg INH Q2H PRN PRN Reason: SOB/WHEEZING Last Admin: 05/18/16 19:09 Dose: 2.5 mg Benzonatate (Tessalon Cap*) 100 mg PO TID PRN PRN Reason: COUGH Last Admin: 05/18/16 01:25 Dose: 100 mg Carbidopa/Levodopa (Sinemet 25/100 Tab(*)) 1.5 tab PO 0800,1200,1600 [facility] Last Admin: 05/18/16 16:12 Dose: 1.5 tab Carbidopa/Levodopa (Sinemet Cr 50/200(*)) 1 tab.cr PO 1900 [facility] Last Admin: 05/18/16 18:19 Dose: 1 tab.cr Docusate Sodium (Colace Cap*) 200 mg PO BID [facility] Last Admin: 05/18/16 19:59 Dose: 200 mg Guaifenesin (Mucinex*) 1,200 mg PO BID [facility] Last Admin: 05/18/16 19:59 Dose: 1,200 mg Heparin Sodium (Porcine) (Heparin Vial(*)) 5,000 units SUBCUT Q8HR [facility] Last Admin: 05/19/16 04:59 Dose: 5,000 units Azithromycin 500 mg/ Sodium (Chloride) 250 mls @ 250 mls/hr IVPB Q24H [facility] Last Admin: 05/19/16 01:26 Dose: 250 mls/hr Cefepime HCl 1 gm/ Sodium (Chloride) 50 mls @ 100 mls/hr IVPB Q12H [facility] Vancomycin HCl 1,250 mg/ (Sodium Chloride) 250 mls @ 166.667 mls/hr IVPB ONCE XOCHITL PRN Reason: Protocol Stop: 05/19/16 23:59 Sodium Chloride (Ns 0.9% 1000 Ml*) 1,000 mls @ 50 mls/hr IV PER RATE [facility] Stop: 05/20/16 04:30 Levothyroxine Sodium (Synthroid Tab*) 50 mcg PO 0600 [facility] Last Admin: 05/19/16 04:59 Dose: 50 mcg Magnesium Oxide (Magox 400 Tab*) 400 mg PO DAILY [facility] Last Admin: 05/18/16 19:59 Dose: 400 mg Melatonin (Melatonin (Nf)) 3 mg PO BEDTIME PRN; Protocol PRN Reason: Sleep Methylprednisolone Sodium Succinate (Solu-Medrol*) 80 mg IV Q12H [facility] Last Admin: 05/19/16 01:38 Dose: 80 mg Metoclopramide HCl (Reglan Iv*) 5 mg IV Q6H PRN PRN Reason: NAUSEA/VOMITING Mometasone Furoate/Formoterol Fumar (Dulera 200/5 Mdi*) 2 puff INH BID [facility] Last Admin: 05/18/16 19:32 Dose: Not Given Morphine Sulfate (Morphine Inj (Syringe)*) 2 mg IV Q4H PRN PRN Reason: PAIN - MILD Last Admin: 05/19/16 05:05 Dose: 2 mg Omeprazole (Prilosec Cap*) 20 mg PO DAILY@0600 [facility] Last Admin: 05/19/16 04:59 Dose: 20 mg Ondansetron HCl (Zofran Inj*) 4 mg IV Q4H PRN PRN Reason: NAUSEA Last Admin: 05/19/16 00:47 Dose: 4 mg Oseltamivir Phosphate (Tamiflu Cap*) 30 mg PO BID [facility] Stop: 05/23/16 09:01 Last Admin: 05/19/16 01:30 Dose: 30 mg Sertraline HCl (Zoloft*) 100 mg PO 1600 [facility] Last Admin: 05/18/16 16:07 Dose: 100 mg Tiotropium [place] (Spiriva Cap.Inh*) 1 cap INH DAILY [facility] Last Admin: 05/18/16 09:57 Dose: 1 cap Vital Signs 05/18/16 05/18/16 05/18/16 10:01 11:25 11:47 Temperature Pulse Rate 94 94 88 Respiratory 20 16 Rate Blood Pressure 153/64 91/64 (mmHg) O2 Sat by Pulse 92 93 89 Oximetry 05/18/16 05/18/16 05/18/16 11:54 11:56 12:07 Temperature 99.2 F Pulse Rate Respiratory Rate Blood Pressure 130/60 (mmHg) O2 Sat by Pulse 88 Oximetry 05/18/16 05/18/16 05/18/16 12:10 12:23 12:28 Temperature Pulse Rate 102 102 Respiratory 24 22 Rate Blood Pressure 152/69 (mmHg) O2 Sat by Pulse 92 Oximetry 05/18/16 05/18/16 05/18/16 13:22 13:23 15:38 Temperature 97.8 F Pulse Rate 108 101 Respiratory 20 22 Rate Blood Pressure 106/54 101/66 (mmHg) O2 Sat by Pulse 93 Oximetry 05/18/16 05/18/16 05/18/16 16:00 18:38 19:12 Temperature Pulse Rate 103 104 Respiratory 29 20 Rate Blood Pressure 119/53 (mmHg) O2 Sat by Pulse 92 94 91 Oximetry 05/18/16 05/18/16 05/18/16 19:39 23:20 23:33 Temperature 98.2 F 97.6 F Pulse Rate 111 110 Respiratory 28 28 14 Rate Blood Pressure 97/57 79/58 (mmHg) O2 Sat by Pulse 91 91 Oximetry 05/19/16 05/19/16 05/19/16 00:00 00:01 00:15 Temperature Pulse Rate 109 85 110 Respiratory 21 34 29 Rate Blood Pressure 107/47 73/52 (mmHg) O2 Sat by Pulse 88 85 89 Oximetry 05/19/16 05/19/16 05/19/16 00:16 00:24 00:30 Temperature Pulse Rate 110 109 Respiratory 28 28 Rate Blood Pressure 76/42 101/49 103/73 (mmHg) O2 Sat by Pulse 89 90 Oximetry 05/19/16 05/19/16 05/19/16 00:45 00:47 01:00 Temperature Pulse Rate 105 Respiratory 32 28 Rate Blood Pressure (mmHg) O2 Sat by Pulse 91 91 Oximetry 05/19/16 05/19/16 05/19/16 01:07 01:15 01:30 Temperature 212.7 F 100.4 F Pulse Rate 105 103 Respiratory 29 30 28 Rate Blood Pressure 151/96 87/52 97/55 (mmHg) O2 Sat by Pulse 90 90 Oximetry 05/19/16 05/19/16 05/19/16 01:39 01:45 01:52 Temperature 97.1 F 100.4 F Pulse Rate 110 102 Respiratory 35 33 30 Rate Blood Pressure 107/47 107/48 (mmHg) O2 Sat by Pulse 85 97 Oximetry 05/19/16 05/19/16 05/19/16 02:00 02:15 02:30 Temperature 100.3 F 100.1 F 100.0 F Pulse Rate 104 103 102 Respiratory 30 29 28 Rate Blood Pressure 94/74 92/62 87/60 (mmHg) O2 Sat by Pulse 89 88 89 Oximetry 05/19/16 05/19/16 05/19/16 02:45 03:00 03:15 Temperature 99.9 F 99.8 F 99.7 F Pulse Rate 101 100 100 Respiratory 27 25 25 Rate Blood Pressure 89/60 92/57 90/56 (mmHg) O2 Sat by Pulse 90 89 87 Oximetry 05/19/16 05/19/16 05/19/16 03:30 03:45 04:00 Temperature 99.7 F 99.6 F 99.6 F Pulse Rate 100 98 97 Respiratory 25 24 25 Rate Blood Pressure 94/61 95/62 101/68 (mmHg) O2 Sat by Pulse 88 89 89 Oximetry 05/19/16 05/19/16 05/19/16 04:15 04:30 04:45 Temperature 99.5 F 99.5 F 99.4 F Pulse Rate 96 96 96 Respiratory 24 23 22 Rate Blood Pressure 108/63 104/69 99/64 (mmHg) O2 Sat by Pulse 89 89 89 Oximetry 05/19/16 05/19/16 05/19/16 05:00 05:05 05:08 Temperature 99.1 F Pulse Rate 97 Respiratory 25 31 Rate Blood Pressure 110/89 (mmHg) O2 Sat by Pulse 94 96 Oximetry 05/19/16 05/19/16 05/19/16 05:15 05:30 05:45 Temperature 99.0 F 99.1 F 98.9 F Pulse Rate 98 96 95 Respiratory 26 26 24 Rate Blood Pressure 113/64 108/60 100/57 (mmHg) O2 Sat by Pulse 93 91 90 Oximetry 05/19/16 05/19/16 05/19/16 05:57 06:00 06:15 Temperature 98.9 F 98.9 F Pulse Rate 94 93 Respiratory 24 24 23 Rate Blood Pressure 97/55 95/61 (mmHg) O2 Sat by Pulse 90 91 Oximetry 05/19/16 05/19/16 05/19/16 06:30 06:45 07:00 Temperature 98.9 F 98.8 F 98.8 F Pulse Rate 92 91 94 Respiratory 21 20 22 Rate Blood Pressure 92/54 110/76 99/69 (mmHg) O2 Sat by Pulse 91 93 92 Oximetry 05/19/16 05/19/16 05/19/16 07:15 07:45 08:00 Temperature 98.8 F 98.7 F 98.7 F Pulse Rate 94 89 89 Respiratory 24 21 21 Rate Blood Pressure 102/47 103/55 99/58 (mmHg) O2 Sat by Pulse 93 91 91 Oximetry 05/19/16 08:15 Temperature 98.7 F Pulse Rate 90 Respiratory 20 Rate Blood Pressure 95/53 (mmHg) O2 Sat by Pulse 91 Oximetry Oxygen Devices in Use Now: High Flow Nasal Cannula - 40L, 100% FiO2 Appearance: Older, ill-appearing, female patient, lying in bed, drowsy but arousable, mildly increased work of breathing with accessory muscle use. Eyes: PERRLA Ears/Nose/Mouth/Throat: Clear Oropharnyx Neck: NL Appearance and Movements; NL JVP Respiratory: Symmetrical Chest Expansion and Respiratory Effort, - - coarse breath sounds throughout, with rhonchi throughout and coarse crackles to right base Cardiovascular: RRR Abdominal: NL Sounds; No Tenderness; No Distention Extremities: No Edema, No Clubbing, Cyanosis Skin: No Rash or Ulcers Neurological: Alert and Oriented x 3 Lines/Tubes/Other Access: Clean, Dry and Intact [place], Clean, Dry and Intact Peripheral IV Result Diagrams: 05/19/16 05:14 05/19/16 05:14 Additional Lab and Data: . Microbiology and Other Data: Microbiology 05/12/16 02:20 Nasal Screen MRSA (PCR)([facility]) - Final Nasal Mrsa Negative Diagnostic Imaging: CXR - NAD Assess/Plan/Problems-Billing Assessment: This is an 80 yo female with asthma, Parkinsons, asthma, HTN, hypothyroidism and depression who presented with cough and shortness of breath. She has been admitted for an asthma exacerbation secondary to influenza A infection, now with concern for bibasilar pneumonia and right pleural effusion. - Patient Problems (1) Pneumonia of both lower lobes Code(s): J18.9 - PNEUMONIA, UNSPECIFIED ORGANISM Comment: - Increased respiratory distress overnight. New right basilar infiltrate noted on CXR last evening, and now with concern for bibasilar infiltrates and right pleural effusion this AM. - Started on BiPAP; patient did not tolerate well and was switched to Vapotherm and is on maximum settings. - Low grade fever and increase in WBC this AM; patient also with positive influenza A PCR - Blood cultures drawn yesterday and results pending - Broaden antibiotics this AM to cefepime, vancomycin, and azithromycin - Continue IV solumedrol, nebulizers (2) Pleural effusion Code(s): J90 - PLEURAL EFFUSION, NOT ELSEWHERE CLASSIFIED Comment: ? secondary to IVF administration, no previously known or documented history of CHF Obtain echocardiogram Patient received IV furosemide overnight, continue close monitoring (3) Acute kidney injury Code(s): N17.9 - ACUTE KIDNEY FAILURE, UNSPECIFIED Comment: Creatinine trending up over the past few days, ? secondary to hypovolemia and diuretic use Continue careful IV hydration at this time, in the presence of concern for sepsis Avoid nephrotoxic medications, renally dose medications as necessary (4) Influenza A virus present Code(s): J10.1 - FLU DUE TO OTH IDENT INFLUENZA VIRUS W OTH RESP MANIFEST Comment: Generalized weakness, slow to improve. Now with pneumonia Initial blood cultures on admission negative, repeat draw 3/3 Additional 5 day course of Tamiflu initiated yesterday (5) Asthma exacerbation Code(s): J45.901 - UNSPECIFIED ASTHMA WITH (ACUTE) EXACERBATION Comment: COPD noted on chest xray Secondary to influenza A, now with concern for pneumonia Continue solumedrol, Advair, nebulizers (6) Dementia Code(s): F03.90 - UNSPECIFIED DEMENTIA WITHOUT BEHAVIORAL DISTURBANCE Comment : Likely Lewey body No significant behavioral concerns, A+O x3 with mild confusion (7) Dehydration Code(s): E86.0 - DEHYDRATION Comment: - Concern for dehydration 3/3 secondary to HCTZ use and inability to keep up with fluid requirements. - BNP was noted to be elevated - ? dehydration vs HF (8) HTN (hypertension) Code(s): I10 - ESSENTIAL (PRIMARY) HYPERTENSION Comment: Mildly hypotensive. Continue IV hydration. Maxzide discontinued. (9) Parkinson disease Code(s): G20 - PARKINSON'S DISEASE Comment: Mild tremor noted Sinemet at home doses has been continued (10) Hypothyroid Code(s): E03.9 - HYPOTHYROIDISM, UNSPECIFIED Comment: Cont levothyroxine (11) DVT prophylaxis Code(s): [id number] - Comment: SQ heparin (12) DNR (do not resuscitate) Current Visit: Yes Status: Acute Comment: DNR/DNI, reviewed with patient's daughter who is her HCP Limited Interventions. Status and Disposition: Inpatient. Anticipate additional 3-5 day length of stay, secondary to new concern of bibasilar infiltrates and right pleural effusion. Obtain supervisor compressed yeast consult due to increased acuity and complexity of patient's condition. Pt meets for subacute. Daughter would like pt to go back to [place] with private aide and PT - to be determined if that is a possibility
[2016-05-19] MEDS: Cefepime(*) 1 GM in NS 0.9% 50 ML* 50 ML IVPB SCH ×2 (08:58→20:16)
[2016-05-19] MEDS ORDERED: Vancomycin(*) 1,250 MG in NS 0.9% 250 ML* 250 ML IVPB ONE (09:15)
[2016-05-19] MEDS: Carbidopa/Levodop 25/100 MG TAB(*) PO SCH ×3 (09:16→17:03)
[2016-05-19] MEDS: guaiFENesin ER TAB 600 MG PO SCH ×2 (09:17→20:00)
[2016-05-19] MEDS: Tiotropium CAP.INH* CAP.INH/18 MCG (USE ORDER SET !) INH SCH (09:17)
[2016-05-19] MEDS: Docusate CAP* 100 MG PO SCH ×2 (09:17→19:59)
[2016-05-19] MEDS: Magnesium Oxide TAB* 400 MG PO SCH (09:18)
[2016-05-19] MEDS ORDERED: Furosemide IV* 10 MG/ML VIAL (40 MG) IV SLOW PU ONE (10:45)
[2016-05-19] MEDS ORDERED: Vancomycin per Pharmacy* NOTE FOLLOW UP PRN (11:12)
[2016-05-19] MEDS: Mometasone/Formoter 200/5 MDI INH SCH ×2 (11:29→20:38)
[2016-05-19] MEDS: Sertraline* 100 MG TAB PO SCH (17:03)
[2016-05-19] MEDS ORDERED: Morphine INJ* 2 MG/ML 1 ML CARPUJECT IV ONE ×2 (17:47→21:42)
--- NOTE | 2016-05-19 17:51 | PN ---
Progress Note - Progress Note Note: I saw this patient with Oren Gould [employer]. Ms Woods has unfortunately developed acute hypoxic respiratory failure and sepsis secondary to bacterial super infection following influenza. Additionally she appears to have pulmonary edema. She has failed to improve throughout today. I discussed with the patient' s daughter about how critically ill she currently is. No BiPAP as the patient did not tolerate and no intubation. Will try to give increased dose of morphine to help with pain and air hunger. Will follow up with the patient tomorrow.
[2016-05-19] MEDS: Carbidopa/Levodop CR 50/200(*) TAB.CR PO SCH (19:16)
[2016-05-19] MEDS: Albuterol 2.5 MG/3 ML NEB.SOL* (0.083%) INH PRN (20:38)
[2016-05-19] MEDS: Morphine INJ* 4 MG/ML 1 ML CARPUJECT IV PRN (21:01)
[2016-05-19] MEDS: Vancomycin(*) 1,250 MG in NS 0.9% 250 ML* 250 ML IVPB SCH (21:02)
[2016-05-19] MEDS ORDERED: Morphine INJ* 2 MG/ML 1 ML CARPUJECT ONE (21:51)
[2016-05-19] MEDS: CMCS Melatonin (NF) 3 MG TAB PO PRN (21:52)
[2016-05-19] MEDS ORDERED: diPHENhydraMINE IV* 50 MG/ML 1 ml VIAL (BENADRYL) ONE (22:45)
[2016-05-19] MEDS: diPHENhydraMINE IV* 50 MG/ML 1 ml VIAL (BENADRYL) IV PRN (22:48)
[2016-05-20] MEDS: methylPREDNISolone 125 MG* 2 ML VIAL IV SCH ×2 (00:56→12:36)
[2016-05-20] MEDS: Azithromycin IV(*) 500 MG in NS 0.9% 250 ML* 250 ML IVPB SCH (00:56)
[2016-05-20] MEDS: Morphine INJ* 4 MG/ML 1 ML CARPUJECT IV PRN ×4 (03:28→18:35)
[2016-05-20] MEDS: Levothyroxine TAB* 50 MCG TAB PO SCH (05:00)
[2016-05-20] MEDS: Omeprazole CAP* 20 MG PO SCH (05:00)
[2016-05-20] MEDS: Heparin VIAL(*) 5000 UNITS/ML VIAL (FIVE THOUSAND) SUBCUT SCH ×3 (05:00→21:07)
[2016-05-20 05:18] LABS: Hematocrit 36 % (35-47); Hemoglobin 11.6 g/dl (12.0-16.0); Mean Corpuscular HGB Conc 32 g/dl (31-36); Mean Corpuscular Hemoglobin 26 pg (27-31); Mean Corpuscular Volume 79 fL (80-97); Mean Platelet Volume 7 um3 (7.4-10.4); Red Blood Count 4.54 10^6/ul (4.0-5.4); Red Cell Distribution Width 17 % (10.5-15); White Blood Count 21.6 10^3/ul (3.5-10.8)
[2016-05-20 05:20] LABS: Add Diff/Slide Review? Slide Review Added; Comments Flag Yes
[2016-05-20 05:29] LABS: BUN/Creatinine Ratio 29.1 (8-20); Calcium 9.5 mg/dL (8.6-10.3); EGFR African American 43.4 (>60); EGFR Non-African American 33.8 (>60); Potassium 4.4 mmol/L (3.5-5.0)
[2016-05-20 06:16] LABS: Immature Granulocytes 5 % (0-9); Neutrophil % 87 % (38-83)
[2016-05-20 06:17] LABS: RBC Morphology Normal (Normal)
[2016-05-20] MEDS: guaiFENesin ER TAB 600 MG PO SCH ×2 (08:00→20:10)
[2016-05-20] MEDS: Docusate CAP* 100 MG PO SCH ×2 (08:00→20:09)
[2016-05-20] MEDS: Carbidopa/Levodop 25/100 MG TAB(*) PO SCH ×3 (08:00→16:08)
[2016-05-20] MEDS: Magnesium Oxide TAB* 400 MG PO SCH (08:01)
[2016-05-20] MEDS: Cefepime(*) 1 GM in NS 0.9% 50 ML* 50 ML IVPB SCH ×2 (08:01→20:11)
[2016-05-20] MEDS: Tiotropium CAP.INH* CAP.INH/18 MCG (USE ORDER SET !) INH SCH (08:01)
[2016-05-20] MEDS: Oseltamivir CAP* 30 MG CAP PO SCH ×2 (08:01→20:09)
[2016-05-20] MEDS: Mometasone/Formoter 200/5 MDI INH SCH ×2 (08:02→21:54)
--- NOTE | 2016-05-20 08:25 | RAD ---
INDICATION: Pneumonia follow-up. COMPARISON: Comparison is made with prior chest x-ray studies from May 18 and May 19, 2016. TECHNIQUE: A portable view of the chest was obtained. FINDINGS: The heart appears mildly enlarged and unchanged. There are infiltrates at both lung bases which are unchanged significantly and a trace right pleural effusion. There is also new atelectasis at the right lung base. IMPRESSION: BIBASILAR INFILTRATES, UNCHANGED SIGNIFICANTLY.
--- NOTE | 2016-05-20 08:32 | PN ---
Subjective Date of Service: 05/20/16 Interval History: Patient seen and examined at bedside. Patient is more alert this morning. She reports some dryness to her mouth but denies any other acute concerns, including fever/chills, chest pain, abd pain, n/v. She reports feeling short of breath and agrees to a breathing treatment. She denies any generalized pain. Telemetry: Sinus rhythm 80s-90s Family History: Unchanged from Admission Social History: Unchanged from Admission Past Medical History: Unchanged from Admission Objective Active Medications: Acetaminophen (Tylenol Tab*) 650 mg PO Q6H PRN PRN Reason: FEVER/PAIN Last Admin: 05/19/16 19:59 Dose: 650 mg Albuterol (Ventolin 2.5 Mg/3 Ml Neb.Madisyn*) 2.5 mg INH Q2H PRN PRN Reason: SOB/WHEEZING Last Admin: 05/19/16 20:38 Dose: 2.5 mg Benzonatate (Tessalon Cap*) 100 mg PO TID PRN PRN Reason: COUGH Last Admin: 05/18/16 01:25 Dose: 100 mg Carbidopa/Levodopa (Sinemet 25/100 Tab(*)) 1.5 tab PO 0800,1200,1600 [facility] Last Admin: 05/20/16 08:00 Dose: 1.5 tab Carbidopa/Levodopa (Sinemet Cr 50/200(*)) 1 tab.cr PO 1900 [facility] Last Admin: 05/19/16 19:16 Dose: 1 tab.cr Diphenhydramine HCl (Benadryl Iv*) 25 mg IV Q6H PRN PRN Reason: PRURITIS Last Admin: 05/19/16 22:48 Dose: 25 mg Docusate Sodium (Colace Cap*) 200 mg PO BID [facility] Last Admin: 05/20/16 08:00 Dose: 200 mg Guaifenesin (Mucinex*) 1,200 mg PO BID [facility] Last Admin: 05/20/16 08:00 Dose: 1,200 mg Heparin Sodium (Porcine) (Heparin Vial(*)) 5,000 units SUBCUT Q8HR [facility] Last Admin: 05/20/16 05:00 Dose: 5,000 units Azithromycin 500 mg/ Sodium (Chloride) 250 mls @ 250 mls/hr IVPB Q24H [facility] Last Admin: 05/20/16 00:56 Dose: 250 mls/hr Cefepime HCl 1 gm/ Sodium (Chloride) 50 mls @ 100 mls/hr IVPB Q12H [facility] Last Admin: 05/20/16 08:01 Dose: 100 mls/hr Vancomycin HCl 1,250 mg/ (Sodium Chloride) 250 mls @ 166.667 mls/hr IVPB Q12H [facility] Last Admin: 05/19/16 21:02 Dose: 166.667 mls/hr Levothyroxine Sodium (Synthroid Tab*) 50 mcg PO 0600 [facility] Last Admin: 05/20/16 05:00 Dose: 50 mcg Magnesium Oxide (Magox 400 Tab*) 400 mg PO DAILY [facility] Last Admin: 05/20/16 08:01 Dose: 400 mg Melatonin (Melatonin (Nf)) 3 mg PO BEDTIME PRN; Protocol PRN Reason: Sleep Last Admin: 05/19/16 21:52 Dose: 3 mg Methylprednisolone Sodium Succinate (Solu-Medrol*) 80 mg IV Q12H [facility] Last Admin: 05/20/16 00:56 Dose: 80 mg Metoclopramide HCl (Reglan Iv*) 5 mg IV Q6H PRN PRN Reason: NAUSEA/VOMITING Mometasone Furoate/Formoterol Fumar (Dulera 200/5 Mdi*) 2 puff INH BID [facility] Last Admin: 05/20/16 08:02 Dose: 2 puff Morphine Sulfate (Morphine Inj (Syringe)*) 4 mg IV Q4H PRN PRN Reason: PAIN - MILD Last Admin: 05/20/16 08:01 Dose: 4 mg Omeprazole (Prilosec Cap*) 20 mg PO DAILY@0600 [facility] Last Admin: 05/20/16 05:00 Dose: 20 mg Ondansetron HCl (Zofran Inj*) 4 mg IV Q4H PRN PRN Reason: NAUSEA Last Admin: 05/19/16 21:05 Dose: 4 mg Oseltamivir Phosphate (Tamiflu Cap*) 30 mg PO BID [facility] Stop: 05/23/16 09:01 Last Admin: 05/20/16 08:01 Dose: 30 mg Pharmacy Consult (Vancomycin Per Pharmacy*) 1 note FOLLOW UP . PRN PRN Reason: PER PROTOCOL Pharmacy Profile Note (Vancomycin Trough Check) 1 note FOLLOW UP 929 ONE Stop: 05/21/16 09:31 Sertraline HCl (Zoloft*) 100 mg PO 1600 [facility] Last Admin: 05/19/16 17:03 Dose: 100 mg Tiotropium [place] (Spiriva Cap.Inh*) 1 cap INH DAILY [facility] Last Admin: 05/20/16 08:01 Dose: 1 cap Vital Signs 05/19/16 05/19/16 05/19/16 08:30 08:45 09:00 Temperature 98.6 F 98.5 F Pulse Rate 88 89 Respiratory 19 19 Rate Blood Pressure 97/51 99/56 98/55 (mmHg) O2 Sat by Pulse 93 91 Oximetry 05/19/16 05/19/16 05/19/16 09:15 09:29 10:00 Temperature 98.6 F 98.7 F Pulse Rate 92 95 Respiratory 24 26 24 Rate Blood Pressure 128/62 113/65 (mmHg) O2 Sat by Pulse 87 91 Oximetry 05/19/16 05/19/16 05/19/16 11:00 12:00 13:00 Temperature 98.9 F 98.9 F 98.8 F Pulse Rate 92 90 93 Respiratory 20 19 26 Rate Blood Pressure 109/67 117/69 131/92 (mmHg) O2 Sat by Pulse 93 90 91 Oximetry 05/19/16 05/19/16 05/19/16 14:00 15:00 16:00 Temperature 98.9 F 99.1 F 98.9 F Pulse Rate 90 90 90 Respiratory 18 19 20 Rate Blood Pressure 110/65 108/65 108/66 (mmHg) O2 Sat by Pulse 89 89 94 Oximetry 05/19/16 05/19/16 05/19/16 17:00 17:12 17:59 Temperature 99.1 F Pulse Rate 89 Respiratory 19 27 22 Rate Blood Pressure 104/60 (mmHg) O2 Sat by Pulse 89 Oximetry 05/19/16 05/19/16 05/19/16 18:00 19:00 20:00 Temperature 98.1 F 98.5 F Pulse Rate 95 90 93 Respiratory 25 19 23 Rate Blood Pressure 121/74 92/53 96/70 (mmHg) O2 Sat by Pulse 94 92 90 Oximetry 05/19/16 05/19/16 05/19/16 21:00 21:01 21:53 Temperature Pulse Rate 96 Respiratory 21 21 18 Rate Blood Pressure 111/62 (mmHg) O2 Sat by Pulse 91 Oximetry 05/19/16 05/19/1617 21:54 22:00 23:00 Temperature Pulse Rate 96 91 Respiratory 18 20 17 Rate Blood Pressure 101/54 (mmHg) O2 Sat by Pulse 93 94 Oximetry 05/19/16 05/19/16 05/20/16 23:05 23:37 00:00 Temperature Pulse Rate 91 89 88 Respiratory 16 16 15 Rate Blood Pressure 114/54 (mmHg) O2 Sat by Pulse 94 93 93 Oximetry 05/20/16 05/20/16 05/20/16 00:01 01:00 02:00 Temperature Pulse Rate 88 88 90 Respiratory 15 14 19 Rate Blood Pressure 100/57 103/62 98/55 (mmHg) O2 Sat by Pulse 93 93 94 Oximetry 05/20/16 05/20/16 05/20/16 03:00 03:28 03:47 Temperature Pulse Rate 87 Respiratory 16 19 17 Rate Blood Pressure 111/60 (mmHg) O2 Sat by Pulse 93 Oximetry 05/20/16 05/20/16 05/20/16 04:00 05:00 05:58 Temperature Pulse Rate 86 86 Respiratory 16 15 16 Rate Blood Pressure 95/52 96/53 (mmHg) O2 Sat by Pulse 93 93 Oximetry 05/20/16 05/20/16 05/20/16 06:00 07:00 08:00 Temperature 97.6 F Pulse Rate 86 82 84 Respiratory 15 14 16 Rate Blood Pressure 102/57 125/57 (mmHg) O2 Sat by Pulse 92 91 94 Oximetry 05/20/16 08:01 Temperature Pulse Rate Respiratory 20 Rate Blood Pressure (mmHg) O2 Sat by Pulse Oximetry Oxygen Devices in Use Now: High Flow Nasal Cannula - 40L, 100% FiO2 Appearance: Elderly female, lying in bed, appears more comfortable than previous visits Eyes: PERRLA Ears/Nose/Mouth/Throat: Clear Oropharnyx, - - mucous membranes appear dry Neck: NL Appearance and Movements; NL JVP Respiratory: Symmetrical Chest Expansion and Respiratory Effort, - - with scattered rhonchi and expiratory wheezing Cardiovascular: NL Sounds; No Murmurs; No JVD, RRR Abdominal: NL Sounds; No Tenderness; No Distention Extremities: No Edema, No Clubbing, Cyanosis Skin: No Rash or Ulcers Neurological: Alert and Oriented x 3 Lines/Tubes/Other Access: Clean, Dry and Intact Goldberg, Clean, Dry and Intact Peripheral IV Result Diagrams: 05/20/16 05:05 05/20/16 05:05 Additional Lab and Data: . Microbiology and Other Data: Microbiology 05/12/16 02:20 Nasal Screen MRSA (PCR)([facility]) - Final Nasal Mrsa Negative Diagnostic Imaging: CXR - NAD Assess/Plan/Problems-Billing Assessment: This is an 80 yo female with asthma, Parkinsons, asthma, HTN, hypothyroidism and depression who presented with cough and shortness of breath. She has been admitted for an asthma exacerbation secondary to influenza A infection, now with concern for bibasilar pneumonia and right pleural effusion. - Patient Problems (1) Pneumonia of both lower lobes Code(s): J18.9 - PNEUMONIA, UNSPECIFIED ORGANISM Comment: With bibasilar infiltrates. CXR unchanged from 05/19, trace right pleural effusion noted. Continue Vapotherm, patient on maximal settings at this time. Afebrile yesterday, WBC with small decrease. Patient also with positive influenza A PCR, on Tamiflu. Blood cultures drawn yesterday and results pending. Continue cefepime, vancomycin, and azithromycin. Continue IV solumedrol, nebulizers. (2) Pleural effusion Code(s): J90 - PLEURAL EFFUSION, NOT ELSEWHERE CLASSIFIED Comment: ? secondary to IVF administration, no previously known or documented history of CHF Echocardiogram pending. IV Lasix x 1 dose yesterday with approx. 1300 mL out (3) Acute kidney injury Code(s): N17.9 - ACUTE KIDNEY FAILURE, UNSPECIFIED Comment: Creatinine mildly improved today. Avoid nephrotoxic medications, renally dose medications as necessary (4) Influenza A virus present Code(s): J10.1 - FLU DUE TO OTH IDENT INFLUENZA VIRUS W OTH RESP MANIFEST Comment: Generalized weakness, slow to improve. Now with pneumonia Initial blood cultures on admission negative, repeat draw / Additional 5 day course of Tamiflu initiated yesterday (5) Asthma exacerbation Code(s): J45.901 - UNSPECIFIED ASTHMA WITH (ACUTE) EXACERBATION Comment: COPD noted on chest xray Secondary to influenza A, now with concern for pneumonia Continue solumedrol, Advair, nebulizers (6) Dementia Code(s): F03.90 - UNSPECIFIED DEMENTIA WITHOUT BEHAVIORAL DISTURBANCE Comment : Likely Lewey body No significant behavioral concerns, A+O x3 with mild confusion (7) HTN (hypertension) Code(s): I10 - ESSENTIAL (PRIMARY) HYPERTENSION Comment: Normotensive at this time. Maxzide discontinued. (8) Parkinson disease Code(s): G20 - PARKINSON'S DISEASE Comment: Mild tremor noted Sinemet at home doses has been continued (9) Hypothyroid Code(s): E03.9 - HYPOTHYROIDISM, UNSPECIFIED Comment: Cont levothyroxine (10) DVT prophylaxis Code(s): [id number] - Comment: SQ heparin (11) DNR (do not resuscitate) Current Visit: Yes Status: Acute Comment: DNR/DNI, reviewed with patient's daughter who is her HCP Limited Interventions. Status and Disposition: Inpatient. Anticipate additional 3-5 day length of stay, secondary to new concern of bibasilar infiltrates and right pleural effusion. Pt meets for subacute. Daughter would like pt to go back to [place] with private aide and PT - to be determined if that is a possibility
[2016-05-20] MEDS: Vancomycin(*) 1,250 MG in NS 0.9% 250 ML* 250 ML IVPB SCH ×2 (10:00→21:07)
--- NOTE | 2016-05-20 10:57 | ECHO ---
Patient: KISHAN TOM [facility] Rec#: [id number] : 1935 Date: 05/20/2016 Age: 80y Height: 167.64 cm / 66.0 in Weight: 82.55 kg / 181.9 lbs Sex: F BSA: 1.92 Room#: [facility] Admit Date#: 05/12/2016 Type: Inpatient Referring: Zehra Gould Reading: Sang Lyons MD [place] Worker: Jo Chavez RDCS CC: Bolivar Antonio MD Transthoracic Echocardiogram Indication: CHF BP: 96/53 HR: 90 Rhythm: NSR Findings History: Asthma,SOB,CHF,Flu A+,HTN,Parkinson's,hypothyroid,breast cancer. Technical Comments: The study was incomplete due to the patient's refusal to continue the exam. Study done with HOB at 90 degrees and pt. supine. Completed at 1010. Left Ventricle: The left ventricular chamber size is normal. Mild to moderate concentric left ventricular hypertrophy is observed. Global left ventricular wall motion and contractility are within normal limits. There is normal left ventricular systolic function. The estimated ejection fraction is 55-60%. Abnormal left ventricular diastolic filling is observed, consistent with impaired relaxation. Left Atrium: The left atrial chamber size is normal. Right Ventricle: The right ventricle is mildly dilated. The right ventricular global systolic function is mildly reduced. Right Atrium: The right atrial cavity size is normal. Aortic Valve: The aortic valve is trileaflet. The aortic valve leaflets are mildly thickened. There is a trace of aortic regurgitation. There is no evidence of aortic stenosis. Mitral Valve: The mitral valve leaflets are mildly thickened. There is a trace of mitral regurgitation. Tricuspid Valve: The tricuspid valve leaflets are normal. There is trace tricuspid regurgitation. Unable to estimate the right ventricular systolic pressure. Pulmonic Valve: The pulmonic valve appears normal. There is a trace pulmonic regurgitation. There is no pulmonic stenosis. Pericardium: There is no significant pericardial effusion. There are no signs of significant hemodynamic compromise. A pericardial fat pad is visualized. Aorta: There is mild dilatation of the ascending aorta. The aortic arch is not well visualized. There is no dilation of the aortic root. Pulmonary Artery: The main pulmonary artery is not well visualized. Venous: The inferior vena cava is dilated. There is an approximate 50% respiratory change in the inferior vena cava dimension. Conclusions There is normal left ventricular systolic function. The estimated ejection fraction is 55-60%. Global left ventricular wall motion and contractility are within normal limits. The left ventricular chamber size is normal. Mild to moderate concentric left ventricular hypertrophy is observed. Abnormal left ventricular diastolic filling is observed, consistent with impaired relaxation. The right ventricle is mildly dilated. The right ventricular global systolic function is mildly reduced. Functionally benign heart valves. There is mild dilatation of the ascending aorta. There is no prior echocardiogram available to compare with at this time. Measurements Name Value Normal Range RAd ISD 4CH 4.8 cm (3.4 - 4.9) RA (A4C)W 3.5 cm (2.9 - 4.6) IVSd (2D) 1.4 cm (0.6 - 1) LVPWd (2D) 1.4 cm (0.6 - 1) LVIDd (2D) 4 cm (3.6 - 5.4) LVIDs (2D) 2.1 cm - LV FS (2D) 46 % (25 - 45) Aortic Annulus 2.1 cm (1.4 - 2.6) Ao root diameter (2D) 3.5 cm (2.1 - 3.5) Ascending Ao 3.5 cm (2.1 - 3.4) LA dimension (AP) 2D 3.6 cm (2.3 - 3.8) LAd ISD 4CH 5.2 cm (2.9 - 5.3) LA ISD 4CH W 3.3 cm (2.5 - 4.5) Name Value Normal Range LA ESV SP 4CH (A/L) 29 ml - LA ESV SP 2CH (A/L) 28 ml - LA ESV BP (A/L) 32 ml - LA ESV BP (A/L) index 16.51 ml/m2 - LA ESV SP 4CH (MOD) 27 ml - LA ESV SP 2CH (MOD) 26 ml - Name Value Normal Range MV E-wave Vmax 0.9 m/sec - MV deceleration time 194 msec - MV A-wave Vmax 1.1 m/sec - MV E:A ratio 0.85 ratio - LV septal e' Vmax 0.09 m/sec - LV lateral e' Vmax 0.08 m/sec - LV E:e' septal ratio 10 ratio - LV E:e' lateral ratio 11.25 ratio - Name Value Normal Range AV Vmax 1.9 m/sec - AV VTI 36.6 cm - AV peak gradient 13.91 mmHg - AV mean gradient 6.43 mmHg - LVOT Vmax 1.1 m/sec - LVOT VTI 21.9 cm - LVOT peak gradient 4.83 mmHg - LVOT mean gradient 2.47 mmHg - AR peak gradient 72.21 mmHg - Name Value Normal Range RAP 8 mmHg - IVC diameter 2.4 cm - Name Value Normal Range PV Vmax 0.9 m/sec - PV peak gradient 3.43 mmHg -
[2016-05-20] MEDS: Sertraline* 100 MG TAB PO SCH (16:08)
[2016-05-20] MEDS: diPHENhydraMINE IV* 50 MG/ML 1 ml VIAL (BENADRYL) IV PRN (16:57)
[2016-05-20] MEDS: Carbidopa/Levodop CR 50/200(*) TAB.CR PO SCH (18:35)
[2016-05-20] MEDS: Ondansetron INJ* 2 MG/ML VIAL IV PRN (18:44)
[2016-05-20] MEDS: Albuterol 2.5 MG/3 ML NEB.SOL* (0.083%) INH PRN (19:13)
[2016-05-20] MEDS: Benzonatate CAP* 100 MG PO PRN (21:57)
[2016-05-21] MEDS: Morphine INJ* 4 MG/ML 1 ML CARPUJECT IV PRN ×5 (00:44→17:33)
[2016-05-21] MEDS: methylPREDNISolone 125 MG* 2 ML VIAL IV SCH ×2 (00:45→13:10)
[2016-05-21] MEDS: Azithromycin IV(*) 500 MG in NS 0.9% 250 ML* 250 ML IVPB SCH (01:31)
[2016-05-21] MEDS: diPHENhydraMINE IV* 50 MG/ML 1 ml VIAL (BENADRYL) IV PRN (01:31)
[2016-05-21] MEDS: Heparin VIAL(*) 5000 UNITS/ML VIAL (FIVE THOUSAND) SUBCUT SCH ×3 (05:57→21:29)
[2016-05-21] MEDS: Omeprazole CAP* 20 MG PO SCH (05:57)
[2016-05-21] MEDS: Levothyroxine TAB* 50 MCG TAB PO SCH (05:57)
[2016-05-21] MEDS: Docusate CAP* 100 MG PO SCH ×2 (07:52→21:29)
[2016-05-21] MEDS: guaiFENesin ER TAB 600 MG PO SCH ×2 (07:52→21:29)
[2016-05-21] MEDS: Carbidopa/Levodop 25/100 MG TAB(*) PO SCH ×3 (07:52→16:16)
[2016-05-21] MEDS: Oseltamivir CAP* 30 MG CAP PO SCH (07:52)
[2016-05-21] MEDS: Magnesium Oxide TAB* 400 MG PO SCH (07:53)
[2016-05-21] MEDS ORDERED: Furosemide IV* 10 MG/ML VIAL (40 MG) IV SLOW PU ONE (08:32)
--- NOTE | 2016-05-21 08:38 | PN ---
Subjective Date of Service: 05/21/16 Interval History: Patient seen and examined at bedside. Ms. Woods is alert and shakes her head no when asked about chest pain, fever/chills, SOB, abd pain, n/v. She does indicate that she is uncomfortable in her bed. We discussed getting her OOB to chair, which she is in agreement with. Nursing expressed concern for vascular access, as patient has hx of mastectomy on right and has lost IV Access to her left. Plan for PICC Telemetry: SR 80s-90s Family History: Unchanged from Admission Social History: Unchanged from Admission Past Medical History: Unchanged from Admission Objective Active Medications: Acetaminophen (Tylenol Tab*) 650 mg PO Q6H PRN PRN Reason: FEVER/PAIN Last Admin: 05/19/16 19:59 Dose: 650 mg Albuterol (Ventolin 2.5 Mg/3 Ml Neb.Madisyn*) 2.5 mg INH Q2H PRN PRN Reason: SOB/WHEEZING Last Admin: 05/20/16 19:13 Dose: 2.5 mg Benzonatate (Tessalon Cap*) 100 mg PO TID PRN PRN Reason: COUGH Last Admin: 05/20/16 21:57 Dose: 100 mg Carbidopa/Levodopa (Sinemet 25/100 Tab(*)) 1.5 tab PO 0800,1200,1600 [facility] Last Admin: 05/21/16 07:52 Dose: 1.5 tab Carbidopa/Levodopa (Sinemet Cr 50/200(*)) 1 tab.cr PO 1900 [facility] Last Admin: 05/20/16 18:35 Dose: 1 tab.cr Diphenhydramine HCl (Benadryl Iv*) 25 mg IV Q6H PRN PRN Reason: PRURITIS Last Admin: 05/21/16 01:31 Dose: 25 mg Docusate Sodium (Colace Cap*) 200 mg PO BID [facility] Last Admin: 05/21/16 07:52 Dose: 200 mg Furosemide (Lasix Iv*) 40 mg IV SLOW PU ONCE ONE Stop: 05/21/16 08:33 Guaifenesin (Mucinex*) 1,200 mg PO BID [facility] Last Admin: 05/21/16 07:52 Dose: 1,200 mg Heparin Sodium (Porcine) (Heparin Vial(*)) 5,000 units SUBCUT Q8HR [facility] Last Admin: 05/21/16 05:57 Dose: 5,000 units Azithromycin 500 mg/ Sodium (Chloride) 250 mls @ 250 mls/hr IVPB Q24H [facility] Last Admin: 05/21/16 01:31 Dose: 250 mls/hr Cefepime HCl 1 gm/ Sodium (Chloride) 50 mls @ 100 mls/hr IVPB Q12H [facility] Last Admin: 05/20/16 20:11 Dose: 100 mls/hr Vancomycin HCl 1,250 mg/ (Sodium Chloride) 250 mls @ 166.667 mls/hr IVPB Q12H [facility] Last Admin: 05/20/16 21:07 Dose: 166.667 mls/hr Levothyroxine Sodium (Synthroid Tab*) 50 mcg PO 0600 [facility] Last Admin: 05/21/16 05:57 Dose: 50 mcg Magnesium Oxide (Magox 400 Tab*) 400 mg PO DAILY [facility] Last Admin: 05/21/16 07:53 Dose: 400 mg Melatonin (Melatonin (Nf)) 3 mg PO BEDTIME PRN; Protocol PRN Reason: Sleep Last Admin: 05/19/16 21:52 Dose: 3 mg Methylprednisolone Sodium Succinate (Solu-Medrol*) 80 mg IV Q12H [facility] Last Admin: 05/21/16 00:45 Dose: 80 mg Metoclopramide HCl (Reglan Iv*) 5 mg IV Q6H PRN PRN Reason: NAUSEA/VOMITING Mometasone Furoate/Formoterol Fumar (Dulera 200/5 Mdi*) 2 puff INH BID [facility] Last Admin: 05/20/16 21:54 Dose: 2 puff Morphine Sulfate (Morphine Inj (Syringe)*) 4 mg IV Q4H PRN PRN Reason: PAIN - MILD Last Admin: 05/21/16 07:52 Dose: 4 mg Omeprazole (Prilosec Cap*) 20 mg PO DAILY@0600 [facility] Last Admin: 05/21/16 05:57 Dose: 20 mg Ondansetron HCl (Zofran Inj*) 4 mg IV Q4H PRN PRN Reason: NAUSEA Last Admin: 05/20/16 18:44 Dose: 4 mg Oseltamivir Phosphate (Tamiflu Cap*) 30 mg PO BID [facility] Stop: 05/23/16 09:01 Last Admin: 05/21/16 07:52 Dose: 30 mg Pharmacy Consult (Vancomycin Per Pharmacy*) 1 note FOLLOW UP . PRN PRN Reason: PER PROTOCOL Pharmacy Profile Note (Vancomycin Trough Check) 1 note FOLLOW UP 929 ONE Stop: 05/21/16 09:31 Sertraline HCl (Zoloft*) 100 mg PO 1600 [facility] Last Admin: 05/20/16 16:08 Dose: 100 mg Tiotropium [place] (Spiriva Cap.Inh*) 1 cap INH DAILY [facility] Last Admin: 05/20/16 08:01 Dose: 1 cap Vital Signs 05/20/16 05/20/16 05/20/16 09:00 10:00 11:00 Temperature 97.2 F 98.1 F 98.0 F Pulse Rate 89 89 84 Respiratory 16 16 13 Rate Blood Pressure 114/74 118/64 110/53 (mmHg) O2 Sat by Pulse 91 93 94 Oximetry 05/20/16 05/20/16 05/20/16 12:00 13:00 13:15 Temperature 97.9 F 97.9 F Pulse Rate 83 88 Respiratory 13 18 20 Rate Blood Pressure 105/57 127/70 (mmHg) O2 Sat by Pulse 93 94 Oximetry 05/20/16 05/20/16 05/20/16 14:00 15:00 16:00 Temperature 98.3 F 98.3 F 98.5 F Pulse Rate 84 87 88 Respiratory 14 16 17 Rate Blood Pressure 115/61 123/63 114/60 (mmHg) O2 Sat by Pulse 92 94 92 Oximetry 05/20/16 05/20/16 05/20/16 17:00 18:00 18:35 Temperature 98.3 F 98.2 F Pulse Rate 85 83 Respiratory 21 16 19 Rate Blood Pressure 148/72 138/74 (mmHg) O2 Sat by Pulse 92 95 Oximetry 05/20/16 05/20/16 05/20/16 19:00 19:14 20:00 Temperature 98.7 F 98.8 F Pulse Rate 97 89 87 Respiratory 22 17 16 Rate Blood Pressure 156/79 135/111 (mmHg) O2 Sat by Pulse 89 90 94 Oximetry 05/20/16 05/20/16 05/20/16 20:04 21:00 22:00 Temperature 98.8 F 98.6 F 98.3 F Pulse Rate 87 86 91 Respiratory 15 17 23 Rate Blood Pressure 136/76 142/75 142/91 (mmHg) O2 Sat by Pulse 94 96 98 Oximetry 05/20/16 05/20/16 05/21/16 23:00 23:04 00:00 Temperature 98.2 F 98.2 F 98.2 F Pulse Rate 84 83 83 Respiratory 15 16 15 Rate Blood Pressure 134/66 (mmHg) O2 Sat by Pulse 95 94 95 Oximetry 05/21/16 05/21/16 05/21/16 00:01 01:00 01:21 Temperature 98.2 F 98.3 F Pulse Rate 83 86 Respiratory 14 20 19 Rate Blood Pressure 137/68 160/73 (mmHg) O2 Sat by Pulse 95 97 Oximetry 05/21/16 05/21/16 05/21/16 01:54 02:00 03:00 Temperature 98.6 F 98.6 F Pulse Rate 85 85 Respiratory 16 16 19 Rate Blood Pressure 141/73 154/70 (mmHg) O2 Sat by Pulse 96 93 Oximetry 05/21/16 05/21/16 05/21/16 04:00 05:00 06:00 Temperature 98.5 F 98.6 F 98.7 F Pulse Rate 84 86 87 Respiratory 22 20 18 Rate Blood Pressure 160/77 173/78 176/90 (mmHg) O2 Sat by Pulse 91 95 95 Oximetry 05/21/16 05/21/16 05/21/16 06:02 07:00 07:52 Temperature 98.7 F 98.5 F Pulse Rate 85 85 Respiratory 18 18 21 Rate Blood Pressure 160/88 148/80 (mmHg) O2 Sat by Pulse 95 95 Oximetry 05/21/16 08:00 Temperature 98.8 F Pulse Rate 90 Respiratory 14 Rate Blood Pressure 157/82 (mmHg) O2 Sat by Pulse 96 Oximetry Oxygen Devices in Use Now: High Flow Nasal Cannula - 40L, 100% FiO2 Appearance: Older female patient, lying in bed, in NAD Eyes: PERRLA Ears/Nose/Mouth/Throat: Clear Oropharnyx, - - oral mucosa somewhat dry Neck: NL Appearance and Movements; NL JVP Respiratory: Symmetrical Chest Expansion and Respiratory Effort, - - rhonchi throughout and crackles noted to the bases, some expiratory wheezing noted Cardiovascular: NL Sounds; No Murmurs; No JVD, RRR, - - trace pretibial edema Abdominal: NL Sounds; No Tenderness; No Distention Skin: No Rash or Ulcers Neurological: Alert and Oriented x 3 Lines/Tubes/Other Access: Clean, Dry and Intact Goldberg, Clean, Dry and Intact Peripheral IV Result Diagrams: 05/20/16 05:05 05/20/16 05:05 Additional Lab and Data: . Microbiology and Other Data: Microbiology 05/12/16 02:20 Nasal Screen MRSA (PCR)([facility]) - Final Nasal Mrsa Negative Diagnostic Imaging: CXR - NAD Assess/Plan/Problems-Billing Assessment: This is an 80 yo female with asthma, Parkinsons, asthma, HTN, hypothyroidism and depression who presented with cough and shortness of breath. She has been admitted for an asthma exacerbation secondary to influenza A infection, now with concern for bibasilar pneumonia and right pleural effusion. - Patient Problems (1) Pneumonia of both lower lobes Code(s): J18.9 - PNEUMONIA, UNSPECIFIED ORGANISM Comment: With bibasilar infiltrates. CXR unchanged from 05/19, trace right pleural effusion noted. Continue Vapotherm, patient on maximal settings at this time. Will attempt to start weaning settings. Afebrile yesterday, CBC for today is pending. Patient also with positive influenza A PCR, on Tamiflu. Blood cultures drawn yesterday and initial results show S. pyogenes. ID consult requested. Continue cefepime, vancomycin, and azithromycin. Continue IV solumedrol, nebulizers. (2) Diastolic CHF Code(s): I50.30 - UNSPECIFIED DIASTOLIC (CONGESTIVE) HEART FAILURE Comment: Noted to have pleural effusion on XR. Echo with preserved EF 50-55%, normal LV systolic function No previous echocardiograms on record. Good response to IV furosemide on 05/19, will give another dose today for increased crackles and pre-tibial edema. (3) Acute kidney injury Code(s): N17.9 - ACUTE KIDNEY FAILURE, UNSPECIFIED Comment: Creatinine improved yesterday, BMP pending this AM. Avoid nephrotoxic medications, renally dose medications as necessary (4) Influenza A virus present Code(s): J10.1 - FLU DUE TO OTH IDENT INFLUENZA VIRUS W OTH RESP MANIFEST Comment: Generalized weakness, slow to improve. Now with pneumonia Initial blood cultures on admission negative, repeat draw 05/18 growing S. pyogenes Additional 5 day course of Tamiflu initiated (5) Asthma exacerbation Code(s): J45.901 - UNSPECIFIED ASTHMA WITH (ACUTE) EXACERBATION Comment: COPD noted on chest xray Secondary to influenza A, now with concern for pneumonia Continue solumedrol, Advair, nebulizers (6) Dementia Code(s): F03.90 - UNSPECIFIED DEMENTIA WITHOUT BEHAVIORAL DISTURBANCE Comment : Likely Lewey body No significant behavioral concerns, A+O x3 with mild confusion (7) HTN (hypertension) Code(s): I10 - ESSENTIAL (PRIMARY) HYPERTENSION Comment: SBP 140s-170s, start low dose metoprolol. Maxzide discontinued, pt receiving furosemide currently. (8) Parkinson disease Code(s): G20 - PARKINSON'S DISEASE Comment: Mild tremor noted Sinemet at home doses has been continued (9) Hypothyroid Code(s): E03.9 - HYPOTHYROIDISM, UNSPECIFIED Comment: Cont levothyroxine (10) DVT prophylaxis Code(s): [id number] - Comment: SQ heparin (11) DNR (do not resuscitate) Current Visit: Yes Status: Acute Comment: DNR/DNI, reviewed with patient's daughter who is her HCP Limited Interventions. Status and Disposition: Inpatient. Anticipate additional 3-5 day length of stay, secondary to new concern of bibasilar infiltrates and right pleural effusion. Pt meets for subacute. Daughter would like pt to go back to [place] with private aide and PT - to be determined if that is a possibility
[2016-05-21] MEDS: Tiotropium CAP.INH* CAP.INH/18 MCG (USE ORDER SET !) INH SCH (08:41)
[2016-05-21] MEDS: Mometasone/Formoter 200/5 MDI INH SCH ×2 (08:41→21:11)
[2016-05-21] MEDS ORDERED: Metoprolol Tartrate TAB* 25 MG PO SCH (09:00)
[2016-05-21] MEDS ORDERED: Vancomycin Trough Check NOTE FOLLOW UP ONE (09:30)
[2016-05-21] MEDS: Cefepime(*) 1 GM in NS 0.9% 50 ML* 50 ML IVPB SCH (09:41)
[2016-05-21 09:49] LABS: Hematocrit 34 % (35-47); Hemoglobin 11.2 g/dl (12.0-16.0); Mean Corpuscular HGB Conc 33 g/dl (31-36); Mean Corpuscular Hemoglobin 26 pg (27-31); Mean Corpuscular Volume 79 fL (80-97); Mean Platelet Volume 7 um3 (7.4-10.4); Red Blood Count 4.34 10^6/ul (4.0-5.4); Red Cell Distribution Width 16 % (10.5-15); White Blood Count 17.4 10^3/ul (3.5-10.8)
[2016-05-21 10:10] LABS: BUN/Creatinine Ratio 30.6 (8-20); Calcium 9.4 mg/dL (8.6-10.3); EGFR African American 69.9 (>60); EGFR Non-African American 54.3 (>60); Potassium 4.1 mmol/L (3.5-5.0)
--- NOTE | 2016-05-21 10:19 | RAD ---
HISTORY: Left arm PICC placement COMPARISONS: May 21, 2015 VIEWS:1: Single frontal portable view of the chest at 9:55 AM FINDINGS: LINES AND TUBES: There is left-sided PICC line with the tip overlying the superior vena cava CARDIOMEDIASTINAL SILHOUETTE: The cardiac silhouette is enlarged. The cardiomediastinal silhouette is otherwise normal for portable technique. PLEURA: The costophrenic angles are sharp. No pleural abnormalities are noted. LUNG PARENCHYMA: There is patchy alveolar opacification lung bases bilaterally ABDOMEN: The upper abdomen is clear. There is no subphrenic gas. BONES AND SOFT TISSUES: No bone or soft tissue abnormalities are noted. IMPRESSION: 1. LINES AND TUBES ABOVE. 2. CARDIOMEGALY. 3. BIBASILAR ATELECTASIS VERSUS CONSOLIDATION.
[2016-05-21 10:20] LABS: Vancomycin Trough 17.1 mcg/mL
[2016-05-21] MEDS: Vancomycin(*) 1,250 MG in NS 0.9% 250 ML* 250 ML IVPB SCH ×2 (10:51→21:29)
[2016-05-21] MEDS: Metoclopramide IV* 5 MG/ML 2 ML VIAL IV PRN (10:51)
--- NOTE | 2016-05-21 11:46 | CONS ---
CONSULTATION REPORT: DATE OF CONSULT: 05/21/16 REQUESTING PROVIDER: Zehra Gould NP CONSULTING SERVICE: Infectious Disease. REASON FOR CONSULTATION: Strep bacteremia. IMPRESSION: 1. Group A Strep in 1 of 4 blood culture bottles drawn on 05/18/16 in the setting of a fever and progressive acute hypoxemic respiratory failure, which was also about a week post influenza. Time course is about right for a post- influenza pneumonia. She does have a new right basilar infiltrate and small effusion that developed about the same time, the classic microbiologic causes of a post-influenza pneumonia are Staph and pneumococcus; however, Group A Strep has pharyngeal pat as well and is seen in post-influenza pneumonia. She has no other signs or symptoms of seeding of bacteria, she does have two prosthetics knees which are asymptomatic, she has no new murmur and no peripheral stigmata of infective endocarditis. 2. Influenza, completed Tamiflu. 3. Asthma with exacerbation. RECOMMENDATIONS: 1. We will stop the Tamiflu. She already had a full course of treatment for that. We will stop droplet precautions as she is more than a week after the onset of her initial influenza symptoms. Continue vancomycin, stop cefepime, add clindamycin and continue azithromycin. 2. A sputum culture if she is able to produce a sample, though has not been able to at this point. HISTORY OF PRESENT ILLNESS: This is an 80-year-old woman with dementia and asthma, admitted with cough and fever. She cannot provide all of that history given her baseline mental status, which is obtained and is had from discussion with Zehra Gould NP, and review of the medical records. She had a cough about a week before she came to the hospital and then developed shortness of breath, fatigue, low grade fevers and chills. She came to the hospital on the and she had a low grade fever then. Influenza PCR was positive, had no leukocytosis. She was felt to have an asthma exacerbation. She was started on Tamiflu, inhaled steroids and nebulizers. She apparently was fully improving and then got worse on the with a fever of 38 degrees. Acute hypoxemic respiratory failure and chest x-ray showed small right lower lobe infiltrate and effusion. She was started on vanco, cefepime, azithromycin. Blood cultures were taken and came back 1 of 4 positive for Group A Streptococci. She was started on methylprednisolone on the as well. Her oxygen requirements are decreasing. Her blood pressure has been stable. She denies any back or joint pain. Her knees have not bothered her. Her oxygen has been titrated down. She has had no fever since the initial one. White count increased to 23,000 after steroids it is 21,000 yesterday. PAST MEDICAL HISTORY: 1. Status post bilateral knee arthroplasties. 2. Asthma. 3. Lewy body dementia. 4. Status post appendectomy. 5. Status post cholecystectomy. 6. Status pot hysterectomy. 7. Hypertension. 8. Parkinsonism. 9. Hypothyroidism. 10. Depression. 11. Breast cancer. MEDICATIONS: 1. Tylenol. 2. Albuterol. 3. Benzonatate. 4. Sinemet. 5. Heparin subcutaneous injection. 6. Levothyroxine. 7. Cefepime 1 g twice a day. 8. Melatonin. 9. Reglan. 10. Omeprazole. 11. Tamiflu 30 mg by mouth twice daily. 12. Zoloft. 13. Vancomycin 1250 mg every 12 hours. 14. Azithromycin 500 mg daily. 15. Methylprednisolone 80 mg twice daily. ALLERGIES: INDOMETHACIN, AMITRIPTYLINE, PREDNISONE, FLEXERIL. FAMILY HISTORY: No recurrent infections. SOCIAL HISTORY: Lives in an assisted living. She has no travel. There was influenza at her facility. REVIEW OF SYSTEMS: All negative except as noted above. PHYSICAL EXAM: Vital Signs: Temperature 37, heart rate 90, respiratory rate 20 , blood pressure 150/90, O2 sat 99% on high flow oxygen, flow rate of 40 L a minute. FiO2 is 100%. In general, she is not in distress. She coughs frequently. She is not diaphoretic. Neurologically, she is awake, eating breakfast, answers questions, moves her extremities. HEENT: There is no conjunctival hemorrhage. Oropharynx is without lesions. Neck is supple without nuchal rigidity. Lymph Nodes: There is no cervical, supraclavicular, inguinal, axillary or epitrochlear lymphadenopathy. Heart: Regular rate and rhythm without murmurs, rubs or gallops. Lungs shows decreased breath sounds at the bases bilaterally without wheezes, rales or rhonchi. Abdomen: Soft, nontender , nondistended without hepatosplenomegaly. Skin: There is no rash or splinter hemorrhages. Musculoskeletal: There is no spine tenderness to palpation or joint synovitis including the bilateral knees where there is no effusion either. DIAGNOSTIC STUDIES/LAB DATA: White blood cell count 21, hemoglobin 11, platelets 211, creatinine 1.4. Urinalysis showed ketones and leukocyte esterase on the 3rd. Cultures negative. Please see impressions and recommendations outlined above. Thanks for allowing me to see Ms. Woods in consultation. [id number]/CPS #: [id number] MTDD
[2016-05-21] MEDS: Clindamycin 600 MG IVPREMIX(* 600 MG/50 ML SDV IV SCH ×2 (11:50→18:21)
[2016-05-21] MEDS: Sertraline* 100 MG TAB PO SCH (16:16)
[2016-05-21] MEDS ORDERED: Metoprolol Tartrate TAB* 25 MG PO ONE (17:26)
[2016-05-21] MEDS ORDERED: Metoprolol Tartrate IV* 1 MG/ML 5 ML VIAL IV PRN (17:29)
[2016-05-21] MEDS: Carbidopa/Levodop CR 50/200(*) TAB.CR PO SCH (18:19)
[2016-05-22] MEDS: methylPREDNISolone 125 MG* 2 ML VIAL IV SCH ×2 (01:22→14:49)
[2016-05-22] MEDS: Morphine INJ* 4 MG/ML 1 ML CARPUJECT IV PRN ×2 (01:22→15:11)
[2016-05-22] MEDS: Azithromycin IV(*) 500 MG in NS 0.9% 250 ML* 250 ML IVPB SCH (01:33)
[2016-05-22] MEDS: Clindamycin 600 MG IVPREMIX(* 600 MG/50 ML SDV IV SCH ×3 (02:58→17:54)
[2016-05-22 05:38] LABS: Hematocrit 38 % (35-47); Hemoglobin 12.2 g/dl (12.0-16.0); Mean Corpuscular HGB Conc 32 g/dl (31-36); Mean Corpuscular Hemoglobin 26 pg (27-31); Mean Corpuscular Volume 79 fL (80-97); Mean Platelet Volume 7 um3 (7.4-10.4); Red Blood Count 4.77 10^6/ul (4.0-5.4); Red Cell Distribution Width 16 % (10.5-15); White Blood Count 12.4 10^3/ul (3.5-10.8)
[2016-05-22] MEDS: Levothyroxine TAB* 50 MCG TAB PO SCH (05:42)
[2016-05-22] MEDS: Omeprazole CAP* 20 MG PO SCH (05:42)
[2016-05-22] MEDS: Heparin VIAL(*) 5000 UNITS/ML VIAL (FIVE THOUSAND) SUBCUT SCH ×3 (05:42→21:08)
[2016-05-22 05:47] LABS: BUN/Creatinine Ratio 32.6 (8-20); EGFR African American 78.1 (>60); EGFR Non-African American 60.7 (>60); Potassium 4.1 mmol/L (3.5-5.0)
[2016-05-22] MEDS: Docusate CAP* 100 MG PO SCH ×2 (07:43→21:07)
[2016-05-22] MEDS: Carbidopa/Levodop 25/100 MG TAB(*) PO SCH ×3 (07:43→15:11)
[2016-05-22] MEDS: Magnesium Oxide TAB* 400 MG PO SCH (07:43)
[2016-05-22] MEDS: guaiFENesin ER TAB 600 MG PO SCH ×2 (07:44→21:07)
[2016-05-22] MEDS: Metoprolol Tartrate TAB* 25 MG PO SCH (07:44)
[2016-05-22] MEDS ORDERED: Furosemide IV* 10 MG/ML 2 ML VIAL (20 MG) IV SLOW PU ONE (08:12)
--- NOTE | 2016-05-22 08:14 | PN ---
Subjective Date of Service: 05/22/16 Interval History: Patient seen and examined at bedside. Patient transitioned to [address] She denies CP, abd pain, n/v, leg pain. Reports that she does have SOB and will receive breathing treatment this AM. Nursing reports patient has gone several days with no BM. No other acute concerns. Family History: Unchanged from Admission Social History: Unchanged from Admission Past Medical History: Unchanged from Admission Objective Active Medications: Acetaminophen (Tylenol Tab*) 650 mg PO Q6H PRN PRN Reason: FEVER/PAIN Last Admin: 05/19/16 19:59 Dose: 650 mg Albuterol (Ventolin 2.5 Mg/3 Ml Neb.Madisyn*) 2.5 mg INH Q2H PRN PRN Reason: SOB/WHEEZING Last Admin: 05/20/16 19:13 Dose: 2.5 mg Benzonatate (Tessalon Cap*) 100 mg PO TID PRN PRN Reason: COUGH Last Admin: 05/20/16 21:57 Dose: 100 mg Bisacodyl (Dulcolax Ec Tab*) 5 mg PO DAILY PRN PRN Reason: CONSTIPATION Carbidopa/Levodopa (Sinemet 25/100 Tab(*)) 1.5 tab PO 0800,1200,1600 [facility] Last Admin: 05/22/16 07:43 Dose: 1.5 tab Carbidopa/Levodopa (Sinemet Cr 50/200(*)) 1 tab.cr PO 1900 [facility] Last Admin: 05/21/16 18:19 Dose: 1 tab.cr Diphenhydramine HCl (Benadryl Iv*) 25 mg IV Q6H PRN PRN Reason: PRURITIS Last Admin: 05/21/16 01:31 Dose: 25 mg Docusate Sodium (Colace Cap*) 200 mg PO BID [facility] Last Admin: 05/22/16 07:43 Dose: 200 mg Guaifenesin (Mucinex*) 1,200 mg PO BID [facility] Last Admin: 05/22/16 07:44 Dose: 1,200 mg Heparin Sodium (Porcine) (Heparin Vial(*)) 5,000 units SUBCUT Q8HR [facility] Last Admin: 05/22/16 05:42 Dose: 5,000 units Heparin Sodium (Porcine) (Heparin Flush Picc/Ml/Cvc(*)) 1 - 3 ml FLUSH 0600, 1800 [facility] PRN Reason: Protocol Last Admin: 05/22/16 05:42 Dose: 1 ml Azithromycin 500 mg/ Sodium (Chloride) 250 mls @ 250 mls/hr IVPB Q24H [facility] Last Admin: 05/22/16 01:33 Dose: 250 mls/hr Vancomycin HCl 1,250 mg/ (Sodium Chloride) 250 mls @ 166.667 mls/hr IVPB Q12H [facility] Last Admin: 05/21/16 21:29 Dose: 166.667 mls/hr Clindamycin HCl/Dextrose (Cleocin 600 Mg Ivpremix(*) Sdv) 600 mg in 50 mls @ 100 mls/hr IV Q8H [facility] Last Admin: 05/22/16 02:58 Dose: 100 mls/hr Levothyroxine Sodium (Synthroid Tab*) 50 mcg PO 0600 [facility] Last Admin: 05/22/16 05:42 Dose: 50 mcg Magnesium Oxide (Magox 400 Tab*) 400 mg PO DAILY [facility] Last Admin: 05/22/16 07:43 Dose: 400 mg Melatonin (Melatonin (Nf)) 3 mg PO BEDTIME PRN; Protocol PRN Reason: Sleep Last Admin: 05/19/16 21:52 Dose: 3 mg Methylprednisolone Sodium Succinate (Solu-Medrol*) 80 mg IV Q12H [facility] Last Admin: 05/22/16 01:22 Dose: 80 mg Metoclopramide HCl (Reglan Iv*) 5 mg IV Q6H PRN PRN Reason: NAUSEA/VOMITING Last Admin: 05/21/16 10:51 Dose: 5 mg Metoprolol Tartrate (Lopressor Tab*) 25 mg PO DAILY [facility] Last Admin: 05/22/16 07:44 Dose: 25 mg Metoprolol Tartrate (Lopressor Iv*) 5 mg IV Q6H PRN PRN Reason: BLOOD PRESSURE Mometasone Furoate/Formoterol Fumar (Dulera 200/5 Mdi*) 2 puff INH BID [facility] Last Admin: 05/21/16 21:11 Dose: 2 puff Morphine Sulfate (Morphine Inj (Syringe)*) 4 mg IV Q4H PRN PRN Reason: PAIN - MILD Last Admin: 05/22/16 01:22 Dose: 4 mg Omeprazole (Prilosec Cap*) 20 mg PO DAILY@0600 [facility] Last Admin: 05/22/16 05:42 Dose: 20 mg Ondansetron HCl (Zofran Inj*) 4 mg IV Q4H PRN PRN Reason: NAUSEA Last Admin: 05/20/16 18:44 Dose: 4 mg Pharmacy Consult (Vancomycin Per Pharmacy*) 1 note FOLLOW UP . PRN PRN Reason: PER PROTOCOL Pharmacy Profile Note (Vancomycin Trough Check) 1 note FOLLOW UP 09 ONE Stop: 05/23/16 09:31 Polyethylene Glycol/Electrolytes (Miralax*) 17 gm PO DAILY [facility] Senna (Senokot Tab*) 2 tab PO BEDTIME PRN PRN Reason: CONSTIPATION Sertraline HCl (Zoloft*) 100 mg PO 1600 [facility] Last Admin: 05/21/16 16:16 Dose: 100 mg Tiotropium [place] (Spiriva Cap.Inh*) 1 cap INH DAILY [facility] Last Admin: 05/21/16 08:41 Dose: 1 cap Vital Signs 05/21/16 05/21/16 05/21/16 08:39 08:40 09:00 Temperature Pulse Rate 88 89 Respiratory 17 22 Rate Blood Pressure 154/97 (mmHg) O2 Sat by Pulse 95 99 98 Oximetry 05/21/16 05/21/16 05/21/16 10:00 11:00 11:24 Temperature Pulse Rate 94 83 Respiratory 21 18 Rate Blood Pressure 151/71 128/52 (mmHg) O2 Sat by Pulse 93 95 Oximetry 05/21/16 05/21/16 05/21/16 12:00 13:00 13:10 Temperature Pulse Rate 80 83 Respiratory 15 20 20 Rate Blood Pressure 129/70 141/73 (mmHg) O2 Sat by Pulse 94 92 Oximetry 05/21/16 05/21/16 05/21/16 14:00 14:45 15:00 Temperature Pulse Rate 86 85 82 Respiratory 20 19 18 Rate Blood Pressure 136/72 151/73 153/71 (mmHg) O2 Sat by Pulse 94 95 94 Oximetry 05/21/16 05/21/16 05/21/16 16:00 17:00 17:33 Temperature 99.2 F Pulse Rate 86 87 Respiratory 20 23 6 Rate Blood Pressure 161/80 136/89 (mmHg) O2 Sat by Pulse 91 94 Oximetry 05/21/16 05/21/16 05/21/16 18:00 18:01 19:00 Temperature 99.0 F 99.0 F Pulse Rate 69 87 Respiratory 24 23 Rate Blood Pressure 175/81 242/195 (mmHg) O2 Sat by Pulse 93 93 Oximetry 05/21/16 05/21/16 05/21/16 19:04 19:21 19:27 Temperature 99.0 F 99.0 F Pulse Rate 81 80 Respiratory 25 29 Rate Blood Pressure 250/226 259/229 264/227 (mmHg) O2 Sat by Pulse 94 94 Oximetry 05/21/16 05/21/16 05/21/16 19:35 19:47 20:00 Temperature 99.0 F 99.0 F Pulse Rate 81 85 Respiratory 25 21 24 Rate Blood Pressure 142/62 (mmHg) O2 Sat by Pulse 94 91 Oximetry 05/21/16 05/21/16 05/21/16 21:00 21:51 22:00 Temperature 99.0 F 98.7 F Pulse Rate 78 78 Respiratory 22 23 21 Rate Blood Pressure 116/82 135/68 (mmHg) O2 Sat by Pulse 92 93 Oximetry 05/21/16 05/21/16 05/21/16 22:59 23:00 23:54 Temperature 98.5 F 98.4 F Pulse Rate 73 72 Respiratory 20 20 16 Rate Blood Pressure 142/76 (mmHg) O2 Sat by Pulse 91 96 Oximetry 05/22/16 05/22/16 05/22/16 00:00 00:01 01:00 Temperature 98.4 F 98.5 F 98.8 F Pulse Rate 72 84 81 Respiratory 15 19 22 Rate Blood Pressure 158/78 141/66 (mmHg) O2 Sat by Pulse 93 94 92 Oximetry 05/22/16 05/22/16 05/22/16 01:22 01:53 02:00 Temperature 98.9 F Pulse Rate 81 Respiratory 18 21 22 Rate Blood Pressure (mmHg) O2 Sat by Pulse 93 Oximetry 05/22/16 05/22/16 05/22/16 02:01 03:00 03:57 Temperature 98.9 F 98.6 F Pulse Rate 81 77 Respiratory 19 19 20 Rate Blood Pressure 117/59 (mmHg) O2 Sat by Pulse 93 92 Oximetry 05/22/16 05/22/16 05/22/16 04:00 05:00 05:47 Temperature 98.7 F 98.7 F Pulse Rate 80 75 Respiratory 24 19 19 Rate Blood Pressure 139/70 (mmHg) O2 Sat by Pulse 90 91 Oximetry 05/22/16 05/22/16 06:00 07:00 Temperature 98.7 F 98.6 F Pulse Rate 78 74 Respiratory 22 23 Rate Blood Pressure 152/67 (mmHg) O2 Sat by Pulse 90 90 Oximetry Oxygen Devices in Use Now: Nasal Cannula - 8L Salter Appearance: Older female, sitting up in bed, alert, in NAD Eyes: PERRLA Ears/Nose/Mouth/Throat: - - dry oral mucosa with beginnings of oral thrush Neck: NL Appearance and Movements; NL JVP Respiratory: Symmetrical Chest Expansion and Respiratory Effort, - - coarse BS throughout with rhonchi and crackles in RML, RLL Cardiovascular: NL Sounds; No Murmurs; No JVD, RRR Abdominal: NL Sounds; No Tenderness; No Distention Extremities: No Edema, No Clubbing, Cyanosis Skin: No Rash or Ulcers Neurological: Alert and Oriented x 3 Lines/Tubes/Other Access: Clean, Dry and Intact Goldberg, Clean, Dry and Intact PICC Line Nutrition: Taking PO's Result Diagrams: 05/22/16 05:26 05/22/16 05:26 Additional Lab and Data: . Microbiology and Other Data: Microbiology 05/12/16 02:20 Nasal Screen MRSA (PCR)([facility]NA[facility]) - Final Nasal Mrsa Negative Diagnostic Imaging: CXR - NAD Assess/Plan/Problems-Billing Assessment: This is an 80 yo female with asthma, Parkinsons, asthma, HTN, hypothyroidism and depression who presented with cough and shortness of breath. She has been admitted for an asthma exacerbation secondary to influenza A infection, now with concern for bibasilar pneumonia and right pleural effusion. - Patient Problems (1) Pneumonia of both lower lobes Code(s): J18.9 - PNEUMONIA, UNSPECIFIED ORGANISM Comment: With bibasilar infiltrates. CXR unchanged from 05/20. Patient weaned from Vapotherm, now on Salter. Afebrile yesterday, WBC trending down. Patient also with positive influenza A PCR, on Tamiflu. Appreciate ID consult for strep bacteremia. Continue clindamycin, vancomycin, azithromycin. Continue IV solumedrol, nebulizers, guaifenesin. (2) Diastolic CHF Code(s): I50.30 - UNSPECIFIED DIASTOLIC (CONGESTIVE) HEART FAILURE Comment: Noted to have pleural effusion on XR. Echo with preserved EF 50-55%, normal LV systolic function No previous echocardiograms on record. Good response to IV furosemide (3) Acute kidney injury Code(s): N17.9 - ACUTE KIDNEY FAILURE, UNSPECIFIED Comment: Resolved. Avoid nephrotoxic medications, renally dose medications as necessary (4) Influenza A virus present Code(s): J10.1 - FLU DUE TO OTH IDENT INFLUENZA VIRUS W OTH RESP MANIFEST Comment: Generalized weakness, slow to improve. Now with pneumonia Initial blood cultures on admission negative, repeat draw 3/3 growing S. pyogenes (5) Asthma exacerbation Code(s): J45.901 - UNSPECIFIED ASTHMA WITH (ACUTE) EXACERBATION Comment: COPD noted on chest xray Secondary to influenza A, now with concern for pneumonia Continue solumedrol, Advair, nebulizers (6) Dementia Code(s): F03.90 - UNSPECIFIED DEMENTIA WITHOUT BEHAVIORAL DISTURBANCE Comment : Likely Lewey body No significant behavioral concerns, A+O x3 with mild confusion (7) HTN (hypertension) Code(s): I10 - ESSENTIAL (PRIMARY) HYPERTENSION Comment: SBP 110s-150s. Elevated BP in 200s noted but nursing indicated these were likely inaccurate. Continue metoprolol at 25 mg today. Maxzide discontinued, pt receiving furosemide currently. (8) Parkinson disease Code(s): G20 - PARKINSON'S DISEASE Comment: Mild tremor noted Sinemet at home doses has been continued (9) Hypothyroid Code(s): E03.9 - HYPOTHYROIDISM, UNSPECIFIED Comment: Cont levothyroxine (10) DVT prophylaxis Code(s): JPS9163 - Comment: SQ heparin (11) DNR (do not resuscitate) Current Visit: Yes Status: Acute Comment: DNR/DNI, reviewed with patient's daughter who is her HCP Limited Interventions. Status and Disposition: Inpatient. Anticipate additional 3-5 day length of stay, secondary to new concern of bibasilar infiltrates and right pleural effusion. PT/OT and resume plan for [facility]. Pt meets for subacute. Daughter would like pt to go back to [facility] with private aide and PT - to be determined if that is a possibility
[2016-05-22] MEDS: Mometasone/Formoter 200/5 MDI INH SCH ×2 (08:27→20:44)
[2016-05-22] MEDS: Tiotropium CAP.INH* CAP.INH/18 MCG (USE ORDER SET !) INH SCH (08:27)
[2016-05-22] MEDS: Vancomycin(*) 1,250 MG in NS 0.9% 250 ML* 250 ML IVPB SCH (09:50)
[2016-05-22] MEDS: Chlorhexidine MOUTHWASH 0.12%* 15 ML UDC SWISH SPIT SCH ×3 (09:51→21:16)
[2016-05-22] MEDS: Polyethylene Glycol 3350* 17 GM PACKET PO SCH (09:51)
[2016-05-22] MEDS: Nystatin SUSPENSION* 100000 UNITS/ML 5 ML UDC PO SCH ×4 (09:51→21:12)
[2016-05-22] MEDS: Ondansetron INJ* 2 MG/ML VIAL IV PRN (13:32)
[2016-05-22] MEDS: Sertraline* 100 MG TAB PO SCH (15:11)
[2016-05-22] MEDS: Metoclopramide IV* 5 MG/ML 2 ML VIAL IV PRN (15:16)
[2016-05-22] MEDS: Carbidopa/Levodop CR 50/200(*) TAB.CR PO SCH (18:01)
[2016-05-22] MEDS: CMCS Melatonin (NF) 3 MG TAB PO PRN (23:37)
[2016-05-23] MEDS: methylPREDNISolone 125 MG* 2 ML VIAL IV SCH ×2 (01:16→12:19)
[2016-05-23] MEDS: Clindamycin 600 MG IVPREMIX(* 600 MG/50 ML SDV IV SCH ×3 (03:12→19:34)
[2016-05-23] MEDS: Omeprazole CAP* 20 MG PO SCH (06:14)
[2016-05-23] MEDS: Heparin VIAL(*) 5000 UNITS/ML VIAL (FIVE THOUSAND) SUBCUT SCH ×3 (06:14→21:06)
[2016-05-23] MEDS: Levothyroxine TAB* 50 MCG TAB PO SCH (06:14)
[2016-05-23] MEDS: Mometasone/Formoter 200/5 MDI INH SCH ×2 (08:23→19:40)
[2016-05-23] MEDS: Tiotropium CAP.INH* CAP.INH/18 MCG (USE ORDER SET !) INH SCH (08:23)
--- NOTE | 2016-05-23 08:59 | PN ---
Subjective Date of Service: 05/23/16 Interval History: Patient seen and examined at bedside. She is OOB to chair and is feeding herself breakfast. She denies fever/chills, CP, abd gomez, n/v, leg pain. She reports dyspnea with exertion and cough. Nursing reports that she had quite a bit of difficulty with mobility, but once in the chair, has been without complaint. Family History: Unchanged from Admission Social History: Unchanged from Admission Past Medical History: Unchanged from Admission Objective Active Medications: Acetaminophen (Tylenol Tab*) 650 mg PO Q6H PRN PRN Reason: FEVER/PAIN Last Admin: 05/19/16 19:59 Dose: 650 mg Albuterol (Ventolin 2.5 Mg/3 Ml Neb.Madisyn*) 2.5 mg INH Q2H PRN PRN Reason: SOB/WHEEZING Last Admin: 05/20/16 19:13 Dose: 2.5 mg Benzonatate (Tessalon Cap*) 100 mg PO TID PRN PRN Reason: COUGH Last Admin: 05/20/16 21:57 Dose: 100 mg Bisacodyl (Dulcolax Ec Tab*) 5 mg PO DAILY PRN PRN Reason: CONSTIPATION Carbidopa/Levodopa (Sinemet 25/100 Tab(*)) 1.5 tab PO 0800,1200,1600 [facility] Last Admin: 05/22/16 15:11 Dose: 1.5 tab Carbidopa/Levodopa (Sinemet Cr 50/200(*)) 1 tab.cr PO 1900 [facility] Last Admin: 05/22/16 18:01 Dose: 1 tab.cr Chlorhexidine Gluconate (Peridex Mouth Wash 0.12%*) 15 ml SWISH SPIT TID [facility] Last Admin: 05/22/16 21:16 Dose: Not Given Diphenhydramine HCl (Benadryl Iv*) 25 mg IV Q6H PRN PRN Reason: PRURITIS Last Admin: 05/21/16 01:31 Dose: 25 mg Docusate Sodium (Colace Cap*) 200 mg PO BID [facility] Last Admin: 05/22/16 21:07 Dose: 200 mg Guaifenesin (Mucinex*) 1,200 mg PO BID [facility] Last Admin: 05/22/16 21:07 Dose: 1,200 mg Heparin Sodium (Porcine) (Heparin Vial(*)) 5,000 units SUBCUT Q8HR [facility] Last Admin: 05/23/16 06:14 Dose: 5,000 units Heparin Sodium (Porcine) (Heparin Flush Picc/Ml/Cvc(*)) 1 - 3 ml FLUSH 0600, 1800 [facility] PRN Reason: Protocol Last Admin: 05/23/16 06:14 Dose: 2 ml Clindamycin HCl/Dextrose (Cleocin 600 Mg Ivpremix(*) Sdv) 600 mg in 50 mls @ 100 mls/hr IV Q8H [facility] Last Admin: 05/23/16 03:12 Dose: 100 mls/hr Levothyroxine Sodium (Synthroid Tab*) 50 mcg PO 0600 [facility] Last Admin: 05/23/16 06:14 Dose: 50 mcg Magnesium Oxide (Magox 400 Tab*) 400 mg PO DAILY [facility] Last Admin: 05/22/16 07:43 Dose: 400 mg Melatonin (Melatonin (Nf)) 3 mg PO BEDTIME PRN; Protocol PRN Reason: Sleep Last Admin: 05/22/16 23:37 Dose: 3 mg Methylprednisolone Sodium Succinate (Solu-Medrol*) 80 mg IV Q12H [facility] Last Admin: 05/23/16 01:16 Dose: 80 mg Metoclopramide HCl (Reglan Iv*) 5 mg IV Q6H PRN PRN Reason: NAUSEA/VOMITING Last Admin: 05/22/16 15:16 Dose: 5 mg Metoprolol Tartrate (Lopressor Tab*) 25 mg PO DAILY [facility] Last Admin: 05/22/16 07:44 Dose: 25 mg Metoprolol Tartrate (Lopressor Iv*) 5 mg IV Q6H PRN PRN Reason: BLOOD PRESSURE Mometasone Furoate/Formoterol Fumar (Dulera 200/5 Mdi*) 2 puff INH BID [facility] Last Admin: 05/23/16 08:23 Dose: 2 puff Morphine Sulfate (Morphine Inj (Syringe)*) 4 mg IV Q4H PRN PRN Reason: PAIN - MILD Last Admin: 05/22/16 15:11 Dose: 4 mg Nystatin (Nystatin Suspension*) 500,000 units PO QID [facility] Stop: 05/29/16 08:10 Last Admin: 05/22/16 21:12 Dose: 500,000 units Omeprazole (Prilosec Cap*) 20 mg PO DAILY@0600 [facility] Last Admin: 05/23/16 06:14 Dose: 20 mg Ondansetron HCl (Zofran Inj*) 4 mg IV Q4H PRN PRN Reason: NAUSEA Last Admin: 05/22/16 13:32 Dose: 4 mg Polyethylene Glycol/Electrolytes (Miralax*) 17 gm PO DAILY [facility] Last Admin: 05/22/16 09:51 Dose: 17 gm Senna (Senokot Tab*) 2 tab PO BEDTIME PRN PRN Reason: CONSTIPATION Sertraline HCl (Zoloft*) 100 mg PO 1600 [facility] Last Admin: 05/22/16 15:11 Dose: 100 mg Tiotropium Cameron (Spiriva Cap.Inh*) 1 cap INH DAILY [facility] Last Admin: 05/23/16 08:23 Dose: 1 cap Vital Signs 05/22/16 05/22/16 05/22/16 09:00 10:00 11:00 Temperature Pulse Rate 80 82 78 Respiratory 17 18 19 Rate Blood Pressure 132/67 (mmHg) O2 Sat by Pulse 91 95 96 Oximetry 05/22/16 05/22/16 05/22/16 12:00 12:01 12:14 Temperature 98.6 F Pulse Rate 77 76 Respiratory 19 20 Rate Blood Pressure 132/64 (mmHg) O2 Sat by Pulse 94 95 Oximetry 05/22/16 05/22/16 05/22/16 13:00 13:53 14:00 Temperature Pulse Rate 77 79 79 Respiratory 21 21 23 Rate Blood Pressure 126/65 127/61 (mmHg) O2 Sat by Pulse 93 95 96 Oximetry 05/22/16 05/22/16 05/22/16 15:00 15:11 15:20 Temperature Pulse Rate 78 Respiratory 21 19 Rate Blood Pressure 129/72 (mmHg) O2 Sat by Pulse 90 Oximetry 05/22/16 05/22/16 05/22/16 16:45 16:58 17:03 Temperature 97.8 F 97.8 F Pulse Rate 81 81 Respiratory 20 20 Rate Blood Pressure 150/69 150/69 (mmHg) O2 Sat by Pulse 91 90 91 Oximetry 05/22/16 05/22/16 05/22/16 19:35 20:00 20:44 Temperature 98.2 F Pulse Rate 75 74 Respiratory 20 16 Rate Blood Pressure 132/68 (mmHg) O2 Sat by Pulse 94 94 Oximetry 03/10/0105/23/16 05/23/16 23:21 00:00 03:35 Temperature 98.1 F 97.9 F Pulse Rate 86 80 Respiratory 18 18 Rate Blood Pressure 147/55 (mmHg) O2 Sat by Pulse 94 94 92 Oximetry 05/23/16 05/23/16 03:57 07:31 Temperature 97.6 F Pulse Rate 79 77 Respiratory 16 Rate Blood Pressure 142/71 147/75 (mmHg) O2 Sat by Pulse 95 Oximetry Oxygen Devices in Use Now: Nasal Cannula - 8L Salter Appearance: Older female patient, OOB to chair, eating breakfast, in NAD Eyes: PERRLA Ears/Nose/Mouth/Throat: Clear Oropharnyx, Mucous Membranes Moist Neck: NL Appearance and Movements; NL JVP Respiratory: Symmetrical Chest Expansion and Respiratory Effort, - - expiratory wheezing, rhonchi in middle and lower lobes, coarse BS Cardiovascular: NL Sounds; No Murmurs; No JVD, RRR Abdominal: NL Sounds; No Tenderness; No Distention Extremities: No Edema Skin: No Rash or Ulcers Neurological: Alert and Oriented x 3 Lines/Tubes/Other Access: Clean, Dry and Intact Goldberg, Clean, Dry and Intact PICC Line Nutrition: Taking PO's Result Diagrams: 05/22/16 05:26 05/22/16 05:26 Additional Lab and Data: . Microbiology and Other Data: Microbiology 05/12/16 02:20 Nasal Screen MRSA (PCR)(BERNABE) - Final Nasal Mrsa Negative Diagnostic Imaging: CXR - NAD Assess/Plan/Problems-Billing Assessment: This is an 80 yo female with asthma, Parkinsons, asthma, HTN, hypothyroidism and depression who presented with cough and shortness of breath. She has been admitted for an asthma exacerbation secondary to influenza A infection, now with concern for bibasilar pneumonia and right pleural effusion. - Patient Problems (1) Pneumonia of both lower lobes Code(s): J18.9 - PNEUMONIA, UNSPECIFIED ORGANISM Comment: With bibasilar infiltrates. CXR unchanged from 05/20. Patient weaned from Vapotherm, now on Salter. Afebrile yesterday, WBC trending down. Patient also with positive influenza A, Tamiflu completed. Appreciate ID consult for strep bacteremia. Continue IV clindamycin. Continue IV solumedrol, nebulizers, guaifenesin. Flutter valve and IS ordered and encouraged. (2) Diastolic CHF Code(s): I50.30 - UNSPECIFIED DIASTOLIC (CONGESTIVE) HEART FAILURE Comment: Noted to have pleural effusion on XR. Echo with preserved EF 50-55%, normal LV systolic function No previous echocardiograms on record. Good response to IV furosemide (3) Acute kidney injury Code(s): N17.9 - ACUTE KIDNEY FAILURE, UNSPECIFIED Comment: Resolved. Avoid nephrotoxic medications, renally dose medications as necessary (4) Influenza A virus present Code(s): J10.1 - FLU DUE TO OTH IDENT INFLUENZA VIRUS W OTH RESP MANIFEST Comment: Generalized weakness, slow to improve. Now with pneumonia Initial blood cultures on admission negative, repeat draw 3/ with S. pyogenes (5) Asthma exacerbation Code(s): J45.901 - UNSPECIFIED ASTHMA WITH (ACUTE) EXACERBATION Comment: COPD noted on chest xray Secondary to influenza A, now with pneumonia Continue solumedrol, Advair, nebulizers (6) Dementia Code(s): F03.90 - UNSPECIFIED DEMENTIA WITHOUT BEHAVIORAL DISTURBANCE Comment : Likely Lewey body No significant behavioral concerns, A+O x3 with mild confusion (7) HTN (hypertension) Code(s): I10 - ESSENTIAL (PRIMARY) HYPERTENSION Comment: SBP 110s-150s. Elevated BP in 200s noted but nursing indicated these were likely inaccurate. Continue metoprolol at 25 mg, will increase to BID with hold parameters as higher BP noted in evenings and overnight. Maxzide discontinued, pt receiving furosemide currently. (8) Parkinson disease Code(s): G20 - PARKINSON'S DISEASE Comment: Mild tremor noted Sinemet at home doses has been continued (9) Hypothyroid Code(s): E03.9 - HYPOTHYROIDISM, UNSPECIFIED Comment: Cont levothyroxine (10) DVT prophylaxis Code(s): MGI1720 - Comment: SQ heparin (11) DNR (do not resuscitate) Current Visit: Yes Status: Acute Comment: DNR/DNI, reviewed with patient's daughter who is her HCP Limited Interventions. Status and Disposition: Inpatient. Increased length of stay, secondary to new concern of bibasilar infiltrates and right pleural effusion. PT/OT and resume plan for [facility]. Pt meets for subacute. Daughter would like pt to go back to [place] with private aide and PT - to be determined if that is a possibility
--- NOTE | 2016-05-23 09:07 | PN ---
Progress Note - Progress Note SOAP: Subjective: DOS: 05/23/16 CC: pneumonia HPI: 80 year old woman with influenza and then post influenza pneumonia. Oxygen saturation has been improving but this morning sats high 80's since coughing spell and ongoing cough which is occasionally productive. No fever, rash, chest pain or diarrhea. Objective: [] Vital Signs Temp 36.4 C 05/23/16 07:31 Pulse 77 05/23/16 07:31 Resp 16 05/23/16 07:31 BP 147/75 05/23/16 07:31 Pulse Ox 95 05/23/16 07:31 Intake & Output 05/22/16 05/23/16 05/23/16 18:59 06:59 18:59 Intake Total 1366 71 Output Total 1150 1225 Balance 216 -1154 Intake: IV Fluids 406 15 NS (0.9%) 406 15 IVPB 56 ABX - CLINDAMYCIN 56 Oral 960 0 Output: Goldberg 1150 1225 Gen:Awake, coughing Neuro:oriented x3 answers all questions HEENT:PERRL, MMM Neck:supple Heart:RRR no murmur Lungs:BL expiratory rhonchi Abd:+BS NTND soft Skin: no rash MSK: no spine tenderness, BL knees no effusion Microbiology 05/18/16 12:10 Aerobic Blood Culture - Final Blood Venous No Growth Day 5 Anaerobic Blood Culture - Final Strep Pyogenes (Grp A) Blood Culture - Final 05/18/16 12:29 Aerobic Blood Culture - Preliminary Blood Venous No Growth Day 4 Anaerobic Blood Culture - Preliminary No Growth Day 4 Blood Culture - Final 05/21/16 09:35 Aerobic Blood Culture - Preliminary Blood Venous No Growth Day 1 Anaerobic Blood Culture - Preliminary No Growth Day 1 05/21/16 09:36 Aerobic Blood Culture - Preliminary Blood Venous No Growth Day 1 Anaerobic Blood Culture - Preliminary No Growth Day 1 Assessment: 1. pneumonia with acute hypoxemic respiratory failure, present on admission 2. Strep bacteremia due to post influenza pneumonia; no peripheral stigmata of infective endocarditis or of other sites of infection 3. influenza, resolved 4. bilateral knee arthroplasties Plan: 1. continue clindamycin 600 mg IV Q8hrs day 5, as long as continuing to improve will plan on PO abx to finish course 2. DC PPI Discussed with Zehra Gould NP
[2016-05-23] MEDS: Polyethylene Glycol 3350* 17 GM PACKET PO SCH (09:13)
[2016-05-23] MEDS: Nystatin SUSPENSION* 100000 UNITS/ML 5 ML UDC PO SCH ×4 (09:14→20:40)
[2016-05-23] MEDS: guaiFENesin ER TAB 600 MG PO SCH ×2 (09:14→20:42)
[2016-05-23] MEDS: Carbidopa/Levodop 25/100 MG TAB(*) PO SCH ×3 (09:15→16:42)
[2016-05-23] MEDS: Docusate CAP* 100 MG PO SCH ×2 (09:15→20:42)
[2016-05-23] MEDS: Metoprolol Tartrate TAB* 25 MG PO SCH ×2 (09:15→19:46)
[2016-05-23] MEDS: Magnesium Oxide TAB* 400 MG PO SCH (09:16)
[2016-05-23] MEDS ORDERED: Vancomycin Trough Check NOTE FOLLOW UP ONE (09:30)
[2016-05-23] MEDS: Chlorhexidine MOUTHWASH 0.12%* 15 ML UDC SWISH SPIT SCH ×3 (10:18→20:58)
[2016-05-23] MEDS: Sertraline* 100 MG TAB PO SCH (15:08)
[2016-05-23] MEDS: Carbidopa/Levodop CR 50/200(*) TAB.CR PO SCH (19:47)
[2016-05-23] MEDS: Albuterol 2.5 MG/3 ML NEB.SOL* (0.083%) INH PRN (23:27)
[2016-05-24] MEDS: methylPREDNISolone 125 MG* 2 ML VIAL IV SCH ×2 (01:10→12:32)
[2016-05-24] MEDS: Clindamycin 600 MG IVPREMIX(* 600 MG/50 ML SDV IV SCH ×3 (02:42→18:09)
[2016-05-24] MEDS: Levothyroxine TAB* 50 MCG TAB PO SCH (05:35)
[2016-05-24] MEDS: Heparin VIAL(*) 5000 UNITS/ML VIAL (FIVE THOUSAND) SUBCUT SCH ×3 (05:35→22:22)
[2016-05-24 05:38] LABS: Hematocrit 35 % (35-47); Hemoglobin 11.4 g/dl (12.0-16.0); Mean Corpuscular HGB Conc 32 g/dl (31-36); Mean Corpuscular Hemoglobin 26 pg (27-31); Mean Corpuscular Volume 79 fL (80-97); Mean Platelet Volume 7 um3 (7.4-10.4); Red Blood Count 4.46 10^6/ul (4.0-5.4); Red Cell Distribution Width 16 % (10.5-15); White Blood Count 12.5 10^3/ul (3.5-10.8)
[2016-05-24 05:42] LABS: Add Diff/Slide Review? Slide Review Added; Comments Flag Yes
[2016-05-24 05:51] LABS: BUN/Creatinine Ratio 26.3 (8-20); Calcium 9.4 mg/dL (8.6-10.3); EGFR African American 88.3 (>60); EGFR Non-African American 68.7 (>60); Potassium 4.3 mmol/L (3.5-5.0)
[2016-05-24] MEDS: Tiotropium CAP.INH* CAP.INH/18 MCG (USE ORDER SET !) INH SCH (07:57)
[2016-05-24] MEDS: Mometasone/Formoter 200/5 MDI INH SCH ×2 (07:57→21:14)
[2016-05-24] MEDS: Chlorhexidine MOUTHWASH 0.12%* 15 ML UDC SWISH SPIT SCH ×3 (08:12→20:37)
[2016-05-24] MEDS: Nystatin SUSPENSION* 100000 UNITS/ML 5 ML UDC PO SCH ×4 (08:12→20:37)
[2016-05-24] MEDS: guaiFENesin ER TAB 600 MG PO SCH ×2 (08:12→20:38)
[2016-05-24] MEDS: Magnesium Oxide TAB* 400 MG PO SCH (08:12)
[2016-05-24] MEDS: Docusate CAP* 100 MG PO SCH ×2 (08:12→20:37)
[2016-05-24] MEDS: Senna TAB PO PRN (08:13)
[2016-05-24] MEDS: Metoprolol Tartrate TAB* 25 MG PO SCH ×2 (08:13→20:38)
[2016-05-24] MEDS: Polyethylene Glycol 3350* 17 GM PACKET PO SCH (08:16)
[2016-05-24] MEDS: Carbidopa/Levodop 25/100 MG TAB(*) PO SCH ×3 (09:20→17:05)
--- NOTE | 2016-05-24 10:32 | PN ---
Progress Note - Progress Note SOAP: Subjective: DOS: 05/24/16 CC: pneumonia HPI: 80 year old woman with influenza and then post influenza pneumonia. Oxygen requirements stable, no fever, rash, or diarrhea. Did not sleep well last night. No chest pain. Objective: [] Vital Signs Temp 36.6 C 05/24/16 07:53 Pulse 76 05/24/16 10:08 Resp 18 05/24/16 10:08 BP 159/83 05/24/16 07:53 Pulse Ox 92 05/24/16 10:08 Intake & Output 05/23/16 05/24/16 05/24/16 18:59 06:59 18:59 Intake Total 430 300 0 Output Total 240 Balance 430 60 0 Weight 181 lb 6.4 oz Intake: IV Fluids 20 35 ABX - AZITHROMYCIN 20 NS (0.9%) 35 IVPB 60 65 ABX - CLINDAMYCIN 60 65 Oral 350 200 0 Output: Urine 240 Other: Estimated Void Small Large # Bowel Movements 0 # Voids 1 1 Gen:Awake, no distress Neuro:oriented x3 answers all questions HEENT:PERRL, MMM Neck:supple Heart:RRR no murmur Lungs:BL expiratory rhonchi Abd:+BS NTND soft Skin: no rash MSK: no spine tenderness, BL knees no effusion Laboratory Results - last 24 hr 05/24/16 05/24/16 05:20 05:20 WBC 12.5 H RBC 4.46 Hgb 11.4 L Hct 35 MCV 79 L MCH 26 L MCHC 32 RDW 16 H Plt Count 216 MPV 7 L Neut % (Auto) 88.6 H Lymph % (Auto) 5.8 L [place] % (Auto) 5.3 Eos % (Auto) 0.1 Baso % (Auto) 0.2 Absolute Neuts (auto) 11.1 H Absolute Lymphs (auto) 0.7 L Absolute Monos (auto) 0.7 Absolute Eos (auto) 0 Absolute Basos (auto) 0 Absolute Nucleated RBC 0 Nucleated RBC % 0 Sodium 133 Potassium 4.3 Chloride 97 L Carbon Dioxide 30 Anion Gap 6 BUN 21 Creatinine 0.80 Est GFR ( Amer) 88.3 Est GFR (Non-Af Amer) 68.7 BUN/Creatinine Ratio 26.3 H Glucose 162 H Calcium 9.4 Assessment: 1. pneumonia with acute hypoxemic respiratory failure, present on admission 2. Strep bacteremia due to post influenza pneumonia; no peripheral stigmata of infective endocarditis or of other sites of infection 3. influenza, resolved 4. bilateral knee arthroplasties, asymptomatic Plan: 1. continue clindamycin 600 mg IV Q8hrs day 08/29, as long as continuing to improve will plan on PO abx to finish course 2. steroids and oxygen supplementation, if not improving pulmonary consult Discussed with Bernice Nieves [facility]
--- NOTE | 2016-05-24 14:14 | PN ---
Subjective Date of Service: 05/24/16 Interval History: . patient denies sob or CP. no fevers or chills. Reports generalized weakness. Occasional cough, little sputum production. Reports "okay appetite". Family History: Unchanged from Admission Social History: Unchanged from Admission Past Medical History: Unchanged from Admission Objective Active Medications: Acetaminophen (Tylenol Tab*) 650 mg PO Q6H PRN PRN Reason: FEVER/PAIN Last Admin: 05/19/16 19:59 Dose: 650 mg Albuterol (Ventolin 2.5 Mg/3 Ml Neb.Madisyn*) 2.5 mg INH Q2H PRN PRN Reason: SOB/WHEEZING Last Admin: 05/23/16 23:27 Dose: 2.5 mg Benzonatate (Tessalon Cap*) 100 mg PO TID PRN PRN Reason: COUGH Last Admin: 05/20/16 21:57 Dose: 100 mg Bisacodyl (Dulcolax Ec Tab*) 5 mg PO DAILY PRN PRN Reason: CONSTIPATION Carbidopa/Levodopa (Sinemet 25/100 Tab(*)) 1.5 tab PO 0800,1200,1600 [facility] Last Admin: 05/24/16 12:32 Dose: 1.5 tab Carbidopa/Levodopa (Sinemet Cr 50/200(*)) 1 tab.cr PO 1900 [facility] Last Admin: 05/23/16 19:47 Dose: 1 tab.cr Chlorhexidine Gluconate (Peridex Mouth Wash 0.12%*) 15 ml SWISH SPIT TID [facility] Last Admin: 05/24/16 12:32 Dose: 15 ml Diphenhydramine HCl (Benadryl Iv*) 25 mg IV Q6H PRN PRN Reason: PRURITIS Last Admin: 05/21/16 01:31 Dose: 25 mg Docusate Sodium (Colace Cap*) 200 mg PO BID [facility] Last Admin: 05/24/16 08:12 Dose: 200 mg Guaifenesin (Mucinex*) 1,200 mg PO BID [facility] Last Admin: 05/24/16 08:12 Dose: 1,200 mg Heparin Sodium (Porcine) (Heparin Vial(*)) 5,000 units SUBCUT Q8HR [facility] Last Admin: 05/24/16 12:32 Dose: 5,000 units Heparin Sodium (Porcine) (Heparin Flush Picc/Ml/Cvc(*)) 1 - 3 ml FLUSH 0600, 1800 [facility] PRN Reason: Protocol Last Admin: 05/24/16 05:29 Dose: 2 ml Clindamycin HCl/Dextrose (Cleocin 600 Mg Ivpremix(*) Sdv) 600 mg in 50 mls @ 100 mls/hr IV Q8H [facility] Last Admin: 05/24/16 11:56 Dose: 100 mls/hr Levothyroxine Sodium (Synthroid Tab*) 50 mcg PO 0600 [facility] Last Admin: 05/24/16 05:35 Dose: 50 mcg Magnesium Oxide (Magox 400 Tab*) 400 mg PO DAILY [facility] Last Admin: 05/24/16 08:12 Dose: 400 mg Melatonin (Melatonin (Nf)) 3 mg PO BEDTIME PRN; Protocol PRN Reason: Sleep Last Admin: 05/22/16 23:37 Dose: 3 mg Methylprednisolone Sodium Succinate (Solu-Medrol*) 80 mg IV Q12H [facility] Last Admin: 05/24/16 12:32 Dose: 80 mg Metoclopramide HCl (Reglan Iv*) 5 mg IV Q6H PRN PRN Reason: NAUSEA/VOMITING Last Admin: 05/22/16 15:16 Dose: 5 mg Metoprolol Tartrate (Lopressor Tab*) 25 mg PO BID [facility] Last Admin: 05/24/16 08:13 Dose: 25 mg Mometasone Furoate/Formoterol Fumar (Dulera 200/5 Mdi*) 2 puff INH BID [facility] Last Admin: 05/24/16 07:57 Dose: 2 puff Morphine Sulfate (Morphine Inj (Syringe)*) 4 mg IV Q4H PRN PRN Reason: PAIN - MILD Last Admin: 05/22/16 15:11 Dose: 4 mg Nystatin (Nystatin Suspension*) 500,000 units PO QID [facility] Stop: 05/29/16 08:10 Last Admin: 05/24/16 12:31 Dose: 500,000 units Ondansetron HCl (Zofran Inj*) 4 mg IV Q4H PRN PRN Reason: NAUSEA Last Admin: 05/22/16 13:32 Dose: 4 mg Polyethylene Glycol/Electrolytes (Miralax*) 17 gm PO DAILY [facility] Last Admin: 05/24/16 08:16 Dose: 17 gm Senna (Senokot Tab*) 2 tab PO BEDTIME PRN PRN Reason: CONSTIPATION Last Admin: 05/24/16 08:13 Dose: 2 tab Sertraline HCl (Zoloft*) 100 mg PO 1600 [id number] Last Admin: 05/23/16 15:08 Dose: 100 mg Tiotropium [place] (Spiriva Cap.Inh*) 1 cap INH DAILY [facility] Last Admin: 05/24/16 07:57 Dose: 1 cap Vital Signs 05/23/16 05/23/16 05/23/16 14:38 19:17 19:41 Temperature 97.4 F Pulse Rate 84 85 81 Respiratory 17 24 Rate Blood Pressure 139/81 175/75 (mmHg) O2 Sat by Pulse 95 91 95 Oximetry 05/23/16 05/23/16 05/23/16 20:00 23:17 23:28 Temperature Pulse Rate 88 94 Respiratory 16 24 Rate Blood Pressure 118/70 (mmHg) O2 Sat by Pulse 91 93 Oximetry 05/24/16 05/24/16 05/24/16 00:00 00:06 03:30 Temperature 98.0 F Pulse Rate 87 100 Respiratory 16 16 Rate Blood Pressure 127/56 (mmHg) O2 Sat by Pulse 92 91 92 Oximetry 05/24/16 05/24/16 05/24/16 03:44 07:53 08:00 Temperature 98.0 F 97.9 F Pulse Rate 80 74 Respiratory 16 16 18 Rate Blood Pressure 129/81 159/83 (mmHg) O2 Sat by Pulse 90 96 92 Oximetry 05/24/16 10:08 Temperature Pulse Rate 76 Respiratory 18 Rate Blood Pressure (mmHg) O2 Sat by Pulse 92 Oximetry Oxygen Devices in Use Now: Nasal Cannula - 8-10L Salter Appearance: 80 yo female sitting up in bed in NAD. A+Ox3 Eyes: No Scleral Icterus, PERRLA Ears/Nose/Mouth/Throat: NL Teeth, Lips, Gums, Mucous Membranes Moist Neck: NL Appearance and Movements; NL JVP Respiratory: Symmetrical Chest Expansion and Respiratory Effort, - - diminished RLL, no crackles or wheezes noted Cardiovascular: NL Sounds; No Murmurs; No JVD, RRR, No Edema Abdominal: NL Sounds; No Tenderness; No Distention Lymphatic: No Cervical Adenopathy Extremities: No Edema, No Clubbing, Cyanosis Skin: No Rash or Ulcers, No Nodules or Sclerosis Neurological: Alert and Oriented x 3, NL Sensation, NL Muscle Strength and Tone Lines/Tubes/Other Access: Clean, Dry and Intact Peripheral IV Nutrition: Taking PO's Result Diagrams: 05/24/16 05:20 05/24/16 05:20 Additional Lab and Data: . Microbiology and Other Data: Microbiology 05/12/16 02:20 Nasal Screen MRSA (PCR)([facility]) - Final Nasal Mrsa Negative Assess/Plan/Problems-Billing Assessment: This is an 80 yo female with asthma, Parkinsons, asthma, HTN, hypothyroidism and depression who presented with cough and shortness of breath. She has been admitted for an asthma exacerbation secondary to influenza A infection, now with bibasilar pneumonia and right pleural effusion and strep bacteremia. - Patient Problems (1) Pneumonia of both lower lobes Comment: - Acute Resp Hypoxic Failure - Post influenza pna with bibasilar infiltrates. Patient weaned from Vapotherm, now on Salter 8-10L difficult to wean. - Afebrile, WBC trending down (has been on high dose steriods). - Appreciate ID consult for strep bacteremia. Continue IV clindamycin day 08/29. - Continue IV solumedrol start to taper - Continue nebulizers, guaifenesin. - Flutter valve and IS ordered and encouraged. (2) Diastolic CHF Comment: Noted to have pleural effusion on XR. Echo with preserved EF 50-55%, normal LV systolic function No previous echocardiograms on record. Good response to IV furosemide, hold for now Daily weights (3) Acute kidney injury Comment: Resolved. (4) Influenza A virus present Comment: Generalized weakness, slow to improve. Finished course of Tamiflu (5) Dehydration Comment: Concern for dehydration 3/3 secondary to HCTZ use and inability to keep up with fluid requirements. BNP was noted to be elevated - ? dehydration vs HF (6) Dementia Comment: Likely Lewey body No significant behavioral concerns, A+O x3 with mild confusion (7) HTN (hypertension) Comment: SBP 110s-150s. Elevated BP in 200s noted but nursing indicated these were likely inaccurate. Continue metoprolol at 25 mg, will increase to BID with hold parameters as higher BP noted in evenings and overnight. Maxzide discontinued, pt receiving furosemide currently. (8) Parkinson disease Comment: Mild tremor noted Sinemet at home doses has been continued (9) Hypothyroid Comment: Cont levothyroxine (10) DNR (do not resuscitate) Comment: DNR/DNI, reviewed with patient's daughter who is her HCP Limited Interventions. (11) DVT prophylaxis Comment: SQ heparin Status and Disposition: Inpatient. Increased length of stay, secondary to new concern of bibasilar infiltrates and right pleural effusion and strep bacteremia. PT/OT and resume plan for [facility].
[2016-05-24] MEDS: Sertraline* 100 MG TAB PO SCH (17:05)
[2016-05-24] MEDS: Carbidopa/Levodop CR 50/200(*) TAB.CR PO SCH (20:37)
[2016-05-24] MEDS: Albuterol 2.5 MG/3 ML NEB.SOL* (0.083%) INH PRN (21:14)
[2016-05-24] MEDS: Morphine INJ* 4 MG/ML 1 ML CARPUJECT IV PRN (22:22)
[2016-05-24] MEDS: CMCS Melatonin (NF) 3 MG TAB PO PRN (23:09)
[2016-05-25] MEDS ORDERED: methylPREDNISolone 125 MG* 2 ML VIAL IV SCH (01:00)
[2016-05-25] MEDS: Clindamycin 600 MG IVPREMIX(* 600 MG/50 ML SDV IV SCH ×3 (02:13→20:00)
[2016-05-25] MEDS: Heparin VIAL(*) 5000 UNITS/ML VIAL (FIVE THOUSAND) SUBCUT SCH ×3 (05:30→21:39)
[2016-05-25] MEDS: Levothyroxine TAB* 50 MCG TAB PO SCH (05:30)
[2016-05-25 06:11] LABS: Hematocrit 35 % (35-47); Hemoglobin 11.3 g/dl (12.0-16.0); Mean Corpuscular HGB Conc 33 g/dl (31-36); Mean Corpuscular Hemoglobin 26 pg (27-31); Mean Corpuscular Volume 79 fL (80-97); Mean Platelet Volume 7 um3 (7.4-10.4); Red Blood Count 4.41 10^6/ul (4.0-5.4); Red Cell Distribution Width 16 % (10.5-15); White Blood Count 10.3 10^3/ul (3.5-10.8)
[2016-05-25 06:17] LABS: Add Diff/Slide Review? Slide Review Added; Comments Flag Yes
[2016-05-25 06:25] LABS: BUN/Creatinine Ratio 31.4 (8-20); EGFR Non-African American 80.1 (>60); Potassium 3.9 mmol/L (3.5-5.0)
[2016-05-25] MEDS: Nystatin SUSPENSION* 100000 UNITS/ML 5 ML UDC PO SCH ×3 (07:15→21:37)
[2016-05-25] MEDS: Bisacodyl EC TAB* 5 MG PO PRN (07:15)
[2016-05-25] MEDS: guaiFENesin ER TAB 600 MG PO SCH ×2 (07:15→21:37)
[2016-05-25] MEDS: Magnesium Oxide TAB* 400 MG PO SCH (07:15)
[2016-05-25] MEDS: Chlorhexidine MOUTHWASH 0.12%* 15 ML UDC SWISH SPIT SCH ×3 (07:15→21:37)
[2016-05-25] MEDS: Docusate CAP* 100 MG PO SCH ×2 (07:15→21:37)
[2016-05-25] MEDS: Polyethylene Glycol 3350* 17 GM PACKET PO SCH (07:15)
[2016-05-25] MEDS: Carbidopa/Levodop 25/100 MG TAB(*) PO SCH ×3 (07:18→14:14)
[2016-05-25] MEDS: Metoprolol Tartrate TAB* 25 MG PO SCH ×2 (07:19→21:38)
[2016-05-25] MEDS: Mometasone/Formoter 200/5 MDI INH SCH ×2 (08:53→20:11)
[2016-05-25] MEDS: Tiotropium CAP.INH* CAP.INH/18 MCG (USE ORDER SET !) INH SCH (08:54)
[2016-05-25] MEDS ORDERED: Mineral Oil ENEMA* 1 BOTTLE PR ONE (10:53)
--- NOTE | 2016-05-25 11:02 | PN ---
Subjective Date of Service: 05/25/16 Interval History: patient reports "I just still feel so weak no energy to do anything". Reports nonproductive cough and constipation. Denies SOB or CP. No fever or chills. Family History: Unchanged from Admission Social History: Unchanged from Admission Past Medical History: Unchanged from Admission Objective Active Medications: Acetaminophen (Tylenol Tab*) 650 mg PO Q6H PRN PRN Reason: FEVER/PAIN Last Admin: 05/19/16 19:59 Dose: 650 mg Albuterol (Ventolin 2.5 Mg/3 Ml Neb.Madisyn*) 2.5 mg INH Q2H PRN PRN Reason: SOB/WHEEZING Last Admin: 05/24/16 21:14 Dose: 2.5 mg Benzonatate (Tessalon Cap*) 100 mg PO TID PRN PRN Reason: COUGH Last Admin: 05/20/16 21:57 Dose: 100 mg Bisacodyl (Dulcolax Ec Tab*) 5 mg PO DAILY PRN PRN Reason: CONSTIPATION Last Admin: 05/25/16 07:15 Dose: 5 mg Carbidopa/Levodopa (Sinemet 25/100 Tab(*)) 1.5 tab PO 0800,1200,1600 [facility] Last Admin: 05/25/16 07:18 Dose: 1.5 tab Carbidopa/Levodopa (Sinemet Cr 50/200(*)) 1 tab.cr PO 1900 [facility] Last Admin: 05/24/16 20:37 Dose: Not Given Chlorhexidine Gluconate (Peridex Mouth Wash 0.12%*) 15 ml SWISH SPIT TID [facility] Last Admin: 05/25/16 07:15 Dose: 15 ml Diphenhydramine HCl (Benadryl Iv*) 25 mg IV Q6H PRN PRN Reason: PRURITIS Last Admin: 05/21/16 01:31 Dose: 25 mg Docusate Sodium (Colace Cap*) 200 mg PO BID [facility] Last Admin: 05/25/16 07:15 Dose: 200 mg Guaifenesin (Mucinex*) 1,200 mg PO BID [facility] Last Admin: 05/25/16 07:15 Dose: 1,200 mg Heparin Sodium (Porcine) (Heparin Vial(*)) 5,000 units SUBCUT Q8HR [facility] Last Admin: 05/25/16 05:30 Dose: 5,000 units Heparin Sodium (Porcine) (Heparin Flush Picc/Ml/Cvc(*)) 1 - 3 ml FLUSH 0600, 1800 [facility] PRN Reason: Protocol Last Admin: 05/25/16 05:30 Dose: 2 ml Clindamycin HCl/Dextrose (Cleocin 600 Mg Ivpremix(*) Sdv) 600 mg in 50 mls @ 100 mls/hr IV Q8H [facility] Last Admin: 05/25/16 10:54 Dose: 100 mls/hr Levothyroxine Sodium (Synthroid Tab*) 50 mcg PO 0600 [facility] Last Admin: 05/25/16 05:30 Dose: 50 mcg Magnesium Oxide (Magox 400 Tab*) 400 mg PO DAILY [facility] Last Admin: 05/25/16 07:15 Dose: 400 mg Melatonin (Melatonin (Nf)) 3 mg PO BEDTIME PRN; Protocol PRN Reason: Sleep Last Admin: 05/24/16 23:09 Dose: 3 mg Methylprednisolone Sodium Succinate (Solu-Medrol*) 40 mg IV Q12H [facility] Metoclopramide HCl (Reglan Iv*) 5 mg IV Q6H PRN PRN Reason: NAUSEA/VOMITING Last Admin: 05/22/16 15:16 Dose: 5 mg Metoprolol Tartrate (Lopressor Tab*) 25 mg PO BID [facility] Last Admin: 05/25/16 07:19 Dose: 25 mg Mineral Oil (Fleet Mineral Oil Enema*) 1 bottle VT ONCE ONE Stop: 05/25/16 10:54 Mometasone Furoate/Formoterol Fumar (Dulera 200/5 Mdi*) 2 puff INH BID [facility] Last Admin: 05/25/16 08:53 Dose: 2 puff Morphine Sulfate (Morphine Inj (Syringe)*) 4 mg IV Q4H PRN PRN Reason: PAIN - MILD Last Admin: 05/24/16 22:22 Dose: 4 mg Nystatin (Nystatin Suspension*) 500,000 units PO QID [facility] Stop: 05/29/16 08:10 Last Admin: 05/25/16 07:15 Dose: 500,000 units Ondansetron HCl (Zofran Inj*) 4 mg IV Q4H PRN PRN Reason: NAUSEA Last Admin: 05/22/16 13:32 Dose: 4 mg Polyethylene Glycol/Electrolytes (Miralax*) 17 gm PO DAILY [facility] Last Admin: 05/25/16 07:15 Dose: 17 gm Senna (Senokot Tab*) 2 tab PO BEDTIME PRN PRN Reason: CONSTIPATION Last Admin: 05/24/16 08:13 Dose: 2 tab Sertraline HCl (Zoloft*) 100 mg PO 1600 [facility] Last Admin: 05/24/16 17:05 Dose: 100 mg Tiotropium [place] (Spiriva Cap.Inh*) 1 cap INH DAILY [facility] Last Admin: 05/25/16 08:54 Dose: 1 cap Vital Signs 05/24/16 05/24/16 05/24/16 14:00 14:52 20:00 Temperature 98.6 F Pulse Rate 68 Respiratory 22 22 Rate Blood Pressure 165/67 (mmHg) O2 Sat by Pulse 92 91 Oximetry 05/24/16 05/24/16 05/24/16 21:15 22:22 23:12 Temperature 97.4 F Pulse Rate 71 76 Respiratory 16 21 21 Rate Blood Pressure 145/65 (mmHg) O2 Sat by Pulse 91 93 Oximetry 05/24/16 05/24/16 05/25/16 23:22 23:52 07:23 Temperature Pulse Rate Respiratory 22 20 Rate Blood Pressure (mmHg) O2 Sat by Pulse 92 Oximetry 05/25/16 05/25/16 07:33 08:56 Temperature 98.0 F Pulse Rate 67 78 Respiratory 16 20 Rate Blood Pressure 144/43 (mmHg) O2 Sat by Pulse 88 92 Oximetry Oxygen Devices in Use Now: Nasal Cannula - 8-10L [place] Appearance: eldelry female laying in a chair in NAD. A+Ox3 but noted mild dementia Eyes: No Scleral Icterus, PERRLA Ears/Nose/Mouth/Throat: NL Teeth, Lips, Gums, Mucous Membranes Moist Neck: NL Appearance and Movements; NL JVP Respiratory: Symmetrical Chest Expansion and Respiratory Effort, Clear to Auscultation Cardiovascular: NL Sounds; No Murmurs; No JVD, RRR, No Edema Abdominal: NL Sounds; No Tenderness; No Distention Extremities: No Edema, No Clubbing, Cyanosis Skin: No Rash or Ulcers, No Nodules or Sclerosis Neurological: Alert and Oriented x 3, NL Sensation Lines/Tubes/Other Access: Clean, Dry and Intact Peripheral IV Nutrition: Taking PO's Result Diagrams: 05/25/16 06:00 05/25/16 06:00 Additional Lab and Data: . Microbiology and Other Data: Microbiology 05/12/16 02:20 Nasal Screen MRSA (PCR)([facility]) - Final Nasal Mrsa Negative Assess/Plan/Problems-Billing Assessment: This is an 80 yo female with asthma, Parkinsons, asthma, HTN, hypothyroidism and depression who presented with cough and shortness of breath. She has been admitted for an asthma exacerbation secondary to influenza A infection, now with bibasilar pneumonia and right pleural effusion and strep bacteremia. - Patient Problems (1) Pneumonia of both lower lobes Comment: - Acute Resp Hypoxic Failure - Post influenza pna with bibasilar infiltrates. Patient weaned from Vapotherm, now on [place] 8-10L difficult to wean and slow to recover - Afebrile, WBC trending resolved - Appreciate ID consult for strep bacteremia. Continue IV clindamycin day 09/28. - Continue IV solumedrol with taper - Continue nebulizers, guaifenesin. - Chest PT ordered; Flutter valve and IS - Appreciated Pulmonary consult. Recommends Chest PT, titrate steroids - if no improvement Saturday obtain Chest CT (2) Diastolic CHF Comment: Stable Echo with preserved EF 50-55%, normal LV systolic function No previous echocardiograms on record. Giev lasin 20 mg IV x 1 now Daily weights (3) Constipation Comment: - continued increase bowel regimen with enema today (4) Acute kidney injury Comment: Resolved. (5) Influenza A virus present Comment: Generalized weakness, slow to improve. Finished course of Tamiflu (6) Dementia Comment: Likely Lewey body No significant behavioral concerns, A+O x3 with mild confusion (7) HTN (hypertension) Comment: Continue metoprolol at 25 mg bid Maxzide discontinued (8) Parkinson disease Comment: Mild tremor noted Sinemet at home doses has been continued (9) Hypothyroid Comment: Cont levothyroxine (10) DNR (do not resuscitate) Comment: DNR/DNI, reviewed with patient's daughter who is her HCP Limited Interventions. (11) DVT prophylaxis Comment: SQ heparin Status and Disposition: Inpatient. Increased length of stay, Influenza complicated by bilateral pneumonia with bibasilar infiltrates and right pleural effusion and strep bacteremia. PT/OT
[2016-05-25] MEDS: methylPREDNISolone SOD 40 MG* 1 ML VIAL IV SCH (12:29)
--- NOTE | 2016-05-25 12:36 | CONS ---
PULMONARY CONSULTATION REPORT: DATE OF CONSULTATION: 05/25/16 CONSULTATION REQUESTED BY: Elo Nieves NP REASON FOR CONSULTATION: Evaluation of pneumonia, hypoxemia. HISTORY OF PRESENT ILLNESS: The patient is an 80-year-old female, resident of [facility] historian secondary to her current status, admitted with worsening shortness of breath, malaise and fatigue, was diagnosed with influenza and post influenza pneumonia. The patient is being treated also for acute asthma exacerbation in the setting of pneumonia. The patient is being covered for secondary bacterial infection post pneumonia. The patient has been slow to recover. The patient still has been requiring O2 supplementation between 8 to 9 L. The patient was seen and examined at bedside earlier today. The patient reported significant malaise and fatigue. The patient has not been ambulatory. The patient denied nausea, vomiting, diarrhea, chest pain, dysuria, or headaches. The patient reports cough productive of clear phlegm. The patient is also having low-grade fevers. White count is trending down. Chest x -ray was personally reviewed by me in comparison with admission chest x-ray. The patient with poor inflation of lung chase with basal atelectasis/pneumonia. PAST MEDICAL HISTORY: 1. Hypertension. 2. Parkinson's. 3. Asthma. 4. Hypothyroidism. 5. Depression. 6. Breast cancer. PAST SURGICAL HISTORY: Cataract extraction, cholecystectomy, appendectomy, hysterectomy, and bilateral TKAs. ALLERGIES: 1. PREDNISONE. 2. INDOMETHACIN. 3. AMITRIPTYLINE. 4. CYCLOBENZAPRINE. FAMILY HISTORY: Hypertension and diabetes. SOCIAL HISTORY: No alcohol, tobacco, or drug abuse. REVIEW OF SYSTEMS: All 14 systems are reviewed and as per HPI. PHYSICAL EXAMINATION: General: The patient in chair, in no apparent distress. Vital Signs: Temperature 98, heart rate 67 beats per minute, respiratory rate 20 per minute, O2 sat 92% on 8 L, and blood pressure 144/43. HEENT: Pupils equal, reactive to light. Mucous membranes moist. No scleral icterus. Respiratory: Diminished air entry on bases, right greater than left, scattered rhonchi present. Cardiovascular: S1, S2 present, regular. Abdomen: Distended. Bowel sounds present. Nontender. Skin: No rash or bruises. Musculoskeletal: Normal range of motion. Trace edema in the lower extremities. Neurologic: Alert, awake, and oriented x3. No focal deficits. DIAGNOSTIC STUDIES/LAB DATA: Influenza A and B positive. WBC count trending down 10.3 today, hemoglobin 11.2, hematocrit 35, and platelet count 225. D- dimer elevated at 300. Blood gas analysis on 05/11/16 showed respiratory alkalosis and normal pO2. Repeat blood gas analysis on 05/19/16 while on BiPAP showed decreased pO2 at 62. Sodium of 136, potassium 3.9, chloride 102, bicarb 26, BUN 22, creatinine 0.70, and calcium 8.0. Influenza A positive. Blood cultures positive for Strep pyogenes group A. Repeat blood culture is negative to date. Chest x-ray as described above in HPI. IMPRESSION AND RECOMMENDATIONS: 80-year-old female with history of asthma admitted with influenza pneumonia with secondary bacterial pneumonia and acute asthma exacerbation and bacteremia. 1. Influenza pneumonia. 2. Bacterial pneumonia. 3. Bacteremia with Strep pyogenes. 4. Acute asthma exacerbation. Agree with current antibiotics. Taper steroids, decreased to 40 mg q.12 today. Taper over the weekend to 30 mg q.12 and then 30 mg daily. The patient is still with high FiO2 requirements likely secondary to V/Q mismatch from underlying pneumonia and poor inspiratory effort. Recommend chest PT, physical therapy, and ambulate as tolerated with assistance. The patient with poorly inflated lung chase, which might be resulting in hypoxemia. Also recommend a 20 mg of stat Lasix. Echocardiogram showed normal LV ejection fraction with abnormal left ventricular relaxation, RV is mildly dilated and with mildly decreased systolic function. No vegetations are seen. If the patient did not improve with conservative measures, will obtain CTA of the chest on Saturday. DVT prophylaxis. Thank you for allowing me to participate in the care of your patient. Will follow up with you. [id number]/[facility] #: [id number] CHANO
[2016-05-25] MEDS ORDERED: Furosemide IV* 10 MG/ML 2 ML VIAL (20 MG) IV ONE (14:00)
[2016-05-25] MEDS: Sertraline* 100 MG TAB PO SCH (14:14)
[2016-05-25] MEDS: Carbidopa/Levodop CR 50/200(*) TAB.CR PO SCH (20:00)
[2016-05-26] MEDS: Benzonatate CAP* 100 MG PO PRN (00:33)
[2016-05-26] MEDS: methylPREDNISolone SOD 40 MG* 1 ML VIAL IV SCH ×2 (00:34→15:56)
[2016-05-26] MEDS: Albuterol 2.5 MG/3 ML NEB.SOL* (0.083%) INH PRN (00:36)
[2016-05-26] MEDS: Clindamycin 600 MG IVPREMIX(* 600 MG/50 ML SDV IV SCH ×3 (03:25→18:31)
[2016-05-26] MEDS: Heparin VIAL(*) 5000 UNITS/ML VIAL (FIVE THOUSAND) SUBCUT SCH ×3 (06:12→21:27)
[2016-05-26] MEDS: Levothyroxine TAB* 50 MCG TAB PO SCH (06:13)
[2016-05-26] MEDS: Nystatin SUSPENSION* 100000 UNITS/ML 5 ML UDC PO SCH ×3 (09:03→21:27)
[2016-05-26] MEDS: Chlorhexidine MOUTHWASH 0.12%* 15 ML UDC SWISH SPIT SCH ×3 (09:03→21:27)
[2016-05-26] MEDS: Carbidopa/Levodop 25/100 MG TAB(*) PO SCH ×3 (09:03→15:55)
[2016-05-26] MEDS: Magnesium Oxide TAB* 400 MG PO SCH (09:04)
[2016-05-26] MEDS: guaiFENesin ER TAB 600 MG PO SCH ×2 (09:04→21:27)
[2016-05-26] MEDS: Senna TAB PO PRN (09:04)
[2016-05-26] MEDS: Docusate CAP* 100 MG PO SCH ×2 (09:04→21:27)
[2016-05-26] MEDS: Bisacodyl EC TAB* 5 MG PO PRN (09:04)
[2016-05-26] MEDS: Metoprolol Tartrate TAB* 25 MG PO SCH ×2 (09:05→21:28)
[2016-05-26] MEDS: Polyethylene Glycol 3350* 17 GM PACKET PO SCH (09:05)
[2016-05-26] MEDS: Mometasone/Formoter 200/5 MDI INH SCH ×2 (09:15→20:38)
[2016-05-26] MEDS: Tiotropium CAP.INH* CAP.INH/18 MCG (USE ORDER SET !) INH SCH (09:15)
--- NOTE | 2016-05-26 11:11 | PN ---
Progress Note - Progress Note Note: Pt seen and examined at bedside. Reports fatigue, SOB, cough improved Active Medications Generic Name Dose Route Start Last Admin Trade Name Freq PRN Reason Stop Dose Admin Acetaminophen 650 mg 05/12/16 01:31 05/19/16 19:59 Tylenol Tab* PO 650 mg Q6H PRN Administration FEVER/PAIN Albuterol 2.5 mg 05/12/16 01:31 05/26/16 00:36 Ventolin 2.5 Mg/3 Ml Neb.Madisyn* INH 2.5 mg Q2H PRN Administration SOB/WHEEZING Benzonatate 100 mg 05/18/16 01:16 05/26/16 00:33 Tessalon Cap* PO 100 mg TID PRN Administration COUGH Bisacodyl 5 mg 05/22/16 08:07 05/26/16 09:04 Dulcolax Ec Tab* PO 5 mg DAILY PRN Administration CONSTIPATION Carbidopa/Levodopa 1.5 tab 05/12/16 08:00 05/26/16 09:03 Sinemet 25/100 Tab(*) PO 1.5 tab 0800,1200,1600 [facility] Administration Carbidopa/Levodopa 1 tab.cr 05/12/16 19:00 05/25/16 20:00 Sinemet Cr 50/200(*) PO 1 tab.cr 1900 [facility] Administration Chlorhexidine Gluconate 15 ml 05/22/16 09:00 05/26/16 09:03 Peridex Mouth Wash 0.12%* SWISH SPIT 15 ml TID [facility] Administration Diphenhydramine HCl 25 mg 05/19/16 22:39 05/21/16 01:31 Benadryl Iv* IV 25 mg Q6H PRN Administration PRURITIS Docusate Sodium 200 mg 05/12/16 09:00 05/26/16 09:04 Colace Cap* PO 200 mg BID [facility] Administration Guaifenesin 1,200 mg 05/12/16 09:00 05/26/16 09:04 Mucinex* PO 1,200 mg BID [facility] Administration Heparin Sodium (Porcine) 5,000 units 05/13/16 06:00 05/26/16 06:12 Heparin Vial(*) SUBCUT 5,000 units Q8HR [facility] Administration Heparin Sodium (Porcine) 1 - 3 ml 05/21/16 18:00 05/26/16 06:13 Heparin Flush Picc/Ml/Cvc(*) FLUSH 2 ml 0600,1800 [facility] Administration Protocol Clindamycin HCl/Dextrose 600 mg in 50 mls @ 100 mls/hr 05/21/16 11:00 03:25 Cleocin 600 Mg Ivpremix(*) Sdv IV 100 mls/hr Q8H [facility] Administration Levothyroxine Sodium 50 mcg 05/13/16 06:00 05/26/16 06:13 Synthroid Tab* PO 50 mcg 0600 [facility] Administration Magnesium Oxide 400 mg 05/18/16 20:00 05/26/16 09:04 Magox 400 Tab* PO 400 mg DAILY [facility] Administration Melatonin 3 mg 05/12/16 01:31 05/24/16 23:09 Melatonin (Nf) PO 3 mg BEDTIME PRN Administration Sleep Protocol Methylprednisolone Sodium Succinate 40 mg 05/25/16 13:00 05/26/16 00:34 Solu-Medrol* IV 40 mg Q12H [facility] Administration Metoclopramide HCl 5 mg 05/19/16 02:16 05/22/16 15:16 Reglan Iv* IV 5 mg Q6H PRN Administration NAUSEA/VOMITING Metoprolol Tartrate 25 mg 05/23/16 21:00 05/26/16 09:05 Lopressor Tab* PO 25 mg BID [facility] Administration Mometasone Furoate/Formoterol Fumar 2 puff 05/12/16 09:00 05/26/16 09:15 Dulera 200/5 Mdi* INH 2 puff BID [facility] Administration Morphine Sulfate 4 mg 05/19/16 17:47 05/24/16 22:22 Morphine Inj (Syringe)* IV 4 mg Q4H PRN Administration PAIN - MILD Nystatin 500,000 units 05/25/16 21:00 05/26/16 09:03 Nystatin Suspension* PO 05/29/16 08:10 500,000 units TID [facility] Administration Ondansetron HCl 4 mg 05/18/16 12:31 05/22/16 13:32 Zofran Inj* IV 4 mg Q4H PRN Administration NAUSEA Polyethylene Glycol/Electrolytes 17 gm 05/22/16 09:00 05/26/16 09:05 Miralax* PO 17 gm DAILY [facility] Administration Senna 2 tab 05/22/16 08:07 05/26/16 09:04 Senokot Tab* PO 2 tab BEDTIME PRN Administration CONSTIPATION Sertraline HCl 100 mg 05/12/16 16:00 05/25/16 14:14 Zoloft* PO 100 mg 1600 [facility] Administration Tiotropium [place] 1 cap 05/12/16 09:00 05/26/16 09:15 Spiriva Cap.Inh* INH 1 cap DAILY [facility] Administration Vital Signs Temp Pulse Resp BP Pulse Ox 97.9 F 80 20 145/68 97 05/26/16 08:39 05/26/16 09:05 05/26/16 09:05 05/26/16 08:39 05/26/16 09:05 O/E: Pt in NAD, sitting up and eating breakfast HEENT: PERRLA, No JVD Lungs: Diminshed a/e b/l, scaterred wheeze+ CVS: S1, S2+ Abd: Obese, BS+ Ext: Trace edema Skin: No rash, bruise I/R: 80 yo f with h/o asthma, parkinsons a/w worsening SOB found to have Influenza, acute asthma exacerbation and post viral PNA resulting in hypoxic resp failure Pt improving slowly FiO2 requirements improved, down to 5L O2 today c/w steroid taper to 30mg q 12 hrs today c/w bronchodilators On Clindamycin
[2016-05-26] MEDS ORDERED: Alteplase (CATHFLO)* 2 MG/2 ML VIAL IV ONE (13:37)
[2016-05-26] MEDS: Sertraline* 100 MG TAB PO SCH (15:55)
[2016-05-26] MEDS ORDERED: Magnesium Hydroxide LIQ* 30 ML UDC PO ONE (16:11)
--- NOTE | 2016-05-26 16:13 | PN ---
Subjective Date of Service: 05/26/16 Interval History: patient reports "Im tired and still have weakness", Denies SOB or CP. she reports stool today for the first time in a week. No abdominal pain. No N/V. Denies fever or chills. Family History: Unchanged from Admission Social History: Unchanged from Admission Past Medical History: Unchanged from Admission Objective Active Medications: Acetaminophen (Tylenol Tab*) 650 mg PO Q6H PRN PRN Reason: FEVER/PAIN Last Admin: 05/19/16 19:59 Dose: 650 mg Albuterol (Ventolin 2.5 Mg/3 Ml Neb.Madisyn*) 2.5 mg INH Q2H PRN PRN Reason: SOB/WHEEZING Last Admin: 05/26/16 00:36 Dose: 2.5 mg Benzonatate (Tessalon Cap*) 100 mg PO TID PRN PRN Reason: COUGH Last Admin: 05/26/16 00:33 Dose: 100 mg Bisacodyl (Dulcolax Ec Tab*) 5 mg PO DAILY PRN PRN Reason: CONSTIPATION Last Admin: 05/26/16 09:04 Dose: 5 mg Carbidopa/Levodopa (Sinemet 25/100 Tab(*)) 1.5 tab PO 0800,1200,1600 [facility] Last Admin: 05/26/16 15:55 Dose: 1.5 tab Carbidopa/Levodopa (Sinemet Cr 50/200(*)) 1 tab.cr PO 1900 [facility] Last Admin: 05/25/16 20:00 Dose: 1 tab.cr Chlorhexidine Gluconate (Peridex Mouth Wash 0.12%*) 15 ml SWISH SPIT TID [facility] Last Admin: 05/26/16 15:07 Dose: 15 ml Diphenhydramine HCl (Benadryl Iv*) 25 mg IV Q6H PRN PRN Reason: PRURITIS Last Admin: 05/21/16 01:31 Dose: 25 mg Docusate Sodium (Colace Cap*) 200 mg PO BID [facility] Last Admin: 05/26/16 09:04 Dose: 200 mg Guaifenesin (Mucinex*) 1,200 mg PO BID [facility] Last Admin: 05/26/16 09:04 Dose: 1,200 mg Heparin Sodium (Porcine) (Heparin Vial(*)) 5,000 units SUBCUT Q8HR [facility] Last Admin: 05/26/16 15:08 Dose: 5,000 units Heparin Sodium (Porcine) (Heparin Flush Picc/Ml/Cvc(*)) 1 - 3 ml FLUSH 0600, 1800 [facility] PRN Reason: Protocol Last Admin: 05/26/16 15:54 Dose: 2 ml Clindamycin HCl/Dextrose (Cleocin 600 Mg Ivpremix(*) Sdv) 600 mg in 50 mls @ 100 mls/hr IV Q8H [facility] Last Admin: 05/26/16 11:25 Dose: 100 mls/hr Levothyroxine Sodium (Synthroid Tab*) 50 mcg PO 0600 [facility] Last Admin: 05/26/16 06:13 Dose: 50 mcg Magnesium Oxide (Magox 400 Tab*) 400 mg PO DAILY [facility] Last Admin: 05/26/16 09:04 Dose: 400 mg Melatonin (Melatonin (Nf)) 3 mg PO BEDTIME PRN; Protocol PRN Reason: Sleep Last Admin: 05/24/16 23:09 Dose: 3 mg Methylprednisolone Sodium Succinate (Solu-Medrol*) 30 mg IV Q12H [facility] Metoclopramide HCl (Reglan Iv*) 5 mg IV Q6H PRN PRN Reason: NAUSEA/VOMITING Last Admin: 05/22/16 15:16 Dose: 5 mg Metoprolol Tartrate (Lopressor Tab*) 25 mg PO BID [facility] Last Admin: 05/26/16 09:05 Dose: 25 mg Mometasone Furoate/Formoterol Fumar (Dulera 200/5 Mdi*) 2 puff INH BID [facility] Last Admin: 05/26/16 09:15 Dose: 2 puff Morphine Sulfate (Morphine Inj (Syringe)*) 4 mg IV Q4H PRN PRN Reason: PAIN - MILD Last Admin: 05/24/16 22:22 Dose: 4 mg Nystatin (Nystatin Suspension*) 500,000 units PO TID [facility] Stop: 05/29/16 08:10 Last Admin: 05/26/16 15:07 Dose: 500,000 units Ondansetron HCl (Zofran Inj*) 4 mg IV Q4H PRN PRN Reason: NAUSEA Last Admin: 05/22/16 13:32 Dose: 4 mg Polyethylene Glycol/Electrolytes (Miralax*) 17 gm PO DAILY [facility] Last Admin: 03/11/17 09:05 Dose: 17 gm Senna (Senokot Tab*) 2 tab PO BEDTIME PRN PRN Reason: CONSTIPATION Last Admin: 05/26/16 09:04 Dose: 2 tab Sertraline HCl (Zoloft*) 100 mg PO 1600 [facility] Last Admin: 05/26/16 15:55 Dose: 100 mg Tiotropium [place] (Spiriva Cap.Inh*) 1 cap INH DAILY [facility] Last Admin: 05/26/16 09:15 Dose: 1 cap Vital Signs 05/25/16 05/25/16 05/25/16 16:44 16:45 20:00 Temperature Pulse Rate 68 Respiratory 16 20 Rate Blood Pressure (mmHg) O2 Sat by Pulse 91 91 Oximetry 05/25/16 05/25/16 05/26/16 20:11 23:36 00:00 Temperature 97.6 F Pulse Rate 87 72 Respiratory 20 Rate Blood Pressure 146/59 (mmHg) O2 Sat by Pulse 92 92 92 Oximetry 05/26/16 05/26/16 05/26/16 08:00 08:39 09:05 Temperature 97.9 F Pulse Rate 68 80 Respiratory 20 18 20 Rate Blood Pressure 145/68 (mmHg) O2 Sat by Pulse 97 95 97 Oximetry 05/26/16 12:58 Temperature Pulse Rate 77 Respiratory 18 Rate Blood Pressure (mmHg) O2 Sat by Pulse 95 Oximetry Oxygen Devices in Use Now: Nasal Cannula - 8-10L [place] Appearance: elderly female laying in bed A+O x3 in NAD - flat affect which has been her baseline throughout hospitalization Eyes: No Scleral Icterus, PERRLA Ears/Nose/Mouth/Throat: NL Teeth, Lips, Gums, Mucous Membranes Moist Neck: NL Appearance and Movements; NL JVP Respiratory: Symmetrical Chest Expansion and Respiratory Effort, Clear to Auscultation Cardiovascular: NL Sounds; No Murmurs; No JVD, RRR, No Edema Abdominal: NL Sounds; No Tenderness; No Distention Extremities: No Edema, No Clubbing, Cyanosis Skin: No Rash or Ulcers, No Nodules or Sclerosis Neurological: Alert and Oriented x 3, NL Sensation, NL Muscle Strength and Tone Lines/Tubes/Other Access: Clean, Dry and Intact Peripheral IV Nutrition: Taking PO's Result Diagrams: 05/25/16 06:00 05/25/16 06:00 Additional Lab and Data: . Microbiology and Other Data: Microbiology 05/12/16 02:20 Nasal Screen MRSA (PCR)([facility]) - Final Nasal Mrsa Negative Diagnostic Imaging: CXR - NAD Assess/Plan/Problems-Billing Assessment: This is an 80 yo female with asthma, Parkinsons, asthma, HTN, hypothyroidism and depression who presented with cough and shortness of breath. She has been admitted for an asthma exacerbation secondary to influenza A infection, now with bibasilar pneumonia and right pleural effusion and strep bacteremia. - Patient Problems (1) Pneumonia of both lower lobes Comment: - Acute Resp Hypoxic Failure - Post influenza pna with bibasilar infiltrates. Patient weaned from Vapotherm, now on [place] 5L, has been difficult to wean and slow to recover - Afebrile, Leukocytosis resolved - Appreciate ID consult for strep bacteremia. Continue IV clindamycin day 10/29. - Continue IV solumedrol with taper - 30 mg BID - Continue nebulizers, guaifenesin. - Chest PT ordered; Flutter valve and IS - Appreciated Pulmonary consult. Recommends Chest PT, titrate steroids - if no improvement Saturday obtain Chest CT (2) Diastolic CHF Comment: Stable Echo with preserved EF 50-55%, normal LV systolic function No previous echocardiograms on record. Daily weights (3) Constipation Comment: - No BM in 1 week; continued increase bowel regimen witha ddition of MOM and warm water enema (4) Acute kidney injury Comment: Resolved. (5) Influenza A virus present Comment: Generalized weakness, slow to improve. Finished course of Tamiflu (6) Dementia Comment: Likely Lewey body No significant behavioral concerns, A+O x3 with mild confusion (7) HTN (hypertension) Comment: controlled continue metoprolol at 25 mg bid Maxzide discontinued (8) Parkinson disease Comment: Mild tremor noted Sinemet at home doses has been continued (9) Hypothyroid Comment: Cont levothyroxine (10) DNR (do not resuscitate) Comment: DNR/DNI, reviewed with patient's daughter who is her HCP Limited Interventions. (11) DVT prophylaxis Comment: SQ heparin Status and Disposition: Inpatient. Increased length of stay, Influenza complicated by acute hypoxic resp failure, bilateral pneumonia with bibasilar infiltrates and right pleural effusion and strep bacteremia. PT/OT
[2016-05-26] MEDS: Carbidopa/Levodop CR 50/200(*) TAB.CR PO SCH (18:31)
[2016-05-27] MEDS: Clindamycin 600 MG IVPREMIX(* 600 MG/50 ML SDV IV SCH ×3 (03:15→19:27)
[2016-05-27] MEDS: CMCS Melatonin (NF) 3 MG TAB PO PRN (03:24)
[2016-05-27] MEDS: Heparin VIAL(*) 5000 UNITS/ML VIAL (FIVE THOUSAND) SUBCUT SCH ×3 (05:53→21:55)
[2016-05-27 06:16] LABS: Hematocrit 34 % (35-47); Hemoglobin 11.4 g/dl (12.0-16.0); Mean Corpuscular HGB Conc 33 g/dl (31-36); Mean Corpuscular Hemoglobin 26 pg (27-31); Mean Corpuscular Volume 79 fL (80-97); Mean Platelet Volume 7 um3 (7.4-10.4); Red Blood Count 4.36 10^6/ul (4.0-5.4); Red Cell Distribution Width 16 % (10.5-15); White Blood Count 9.7 10^3/ul (3.5-10.8)
[2016-05-27 06:31] LABS: BUN/Creatinine Ratio 24.5 (8-20); Calcium 9.3 mg/dL (8.6-10.3); EGFR African American 69.9 (>60); EGFR Non-African American 54.3 (>60); Magnesium 2.4 mg/dL (1.9-2.7); Potassium 4.2 mmol/L (3.5-5.0)
[2016-05-27] MEDS: Levothyroxine TAB* 50 MCG TAB PO SCH (07:26)
[2016-05-27] MEDS: Tiotropium CAP.INH* CAP.INH/18 MCG (USE ORDER SET !) INH SCH (08:06)
[2016-05-27] MEDS: Mometasone/Formoter 200/5 MDI INH SCH ×2 (08:06→19:55)
[2016-05-27] MEDS: Carbidopa/Levodop 25/100 MG TAB(*) PO SCH ×3 (10:02→17:12)
[2016-05-27] MEDS: guaiFENesin ER TAB 600 MG PO SCH ×2 (10:03→21:56)
[2016-05-27] MEDS: Chlorhexidine MOUTHWASH 0.12%* 15 ML UDC SWISH SPIT SCH ×3 (10:03→22:08)
[2016-05-27] MEDS: Polyethylene Glycol 3350* 17 GM PACKET PO SCH (10:03)
[2016-05-27] MEDS: Nystatin SUSPENSION* 100000 UNITS/ML 5 ML UDC PO SCH ×3 (10:03→21:56)
[2016-05-27] MEDS: Magnesium Oxide TAB* 400 MG PO SCH (10:03)
[2016-05-27] MEDS: Metoprolol Tartrate TAB* 25 MG PO SCH ×2 (10:03→21:56)
[2016-05-27] MEDS: Docusate CAP* 100 MG PO SCH ×2 (10:03→22:06)
--- NOTE | 2016-05-27 14:01 | PN ---
Subjective Date of Service: 05/27/16 Interval History: . Patient reports "Im tired and don't feel like getting OOB". Report little appetite. No fever or chills. No abdominal pain. No N/V/D. Reports BM today and last evening Family History: Unchanged from Admission Social History: Unchanged from Admission Past Medical History: Unchanged from Admission Objective Active Medications: Acetaminophen (Tylenol Tab*) 650 mg PO Q6H PRN PRN Reason: FEVER/PAIN Last Admin: 05/19/16 19:59 Dose: 650 mg Albuterol (Ventolin 2.5 Mg/3 Ml Neb.Madisyn*) 2.5 mg INH Q2H PRN PRN Reason: SOB/WHEEZING Last Admin: 05/26/16 00:36 Dose: 2.5 mg Benzonatate (Tessalon Cap*) 100 mg PO TID PRN PRN Reason: COUGH Last Admin: 05/26/16 00:33 Dose: 100 mg Bisacodyl (Dulcolax Ec Tab*) 5 mg PO DAILY PRN PRN Reason: CONSTIPATION Last Admin: 05/26/16 09:04 Dose: 5 mg Carbidopa/Levodopa (Sinemet 25/100 Tab(*)) 1.5 tab PO 0800,1200,1600 [facility] Last Admin: 05/27/16 10:02 Dose: 1.5 tab Carbidopa/Levodopa (Sinemet Cr 50/200(*)) 1 tab.cr PO 1900 [facility] Last Admin: 05/26/16 18:31 Dose: 1 tab.cr Chlorhexidine Gluconate (Peridex Mouth Wash 0.12%*) 15 ml SWISH SPIT TID [facility] Last Admin: 05/27/16 10:03 Dose: 15 ml Diphenhydramine HCl (Benadryl Iv*) 25 mg IV Q6H PRN PRN Reason: PRURITIS Last Admin: 05/21/16 01:31 Dose: 25 mg Docusate Sodium (Colace Cap*) 200 mg PO BID [facility] Last Admin: 05/27/16 10:03 Dose: 200 mg Guaifenesin (Mucinex*) 1,200 mg PO BID [facility] Last Admin: 05/27/16 10:03 Dose: 1,200 mg Heparin Sodium (Porcine) (Heparin Vial(*)) 5,000 units SUBCUT Q8HR [facility] Last Admin: 05/27/16 05:53 Dose: 5,000 units Heparin Sodium (Porcine) (Heparin Flush Picc/Ml/Cvc(*)) 1 - 3 ml FLUSH 0600, 1800 [facility] PRN Reason: Protocol Last Admin: 05/27/16 06:04 Dose: 2 ml Clindamycin HCl/Dextrose (Cleocin 600 Mg Ivpremix(*) Sdv) 600 mg in 50 mls @ 100 mls/hr IV Q8H [facility] Last Admin: 05/27/16 11:41 Dose: 100 mls/hr Levothyroxine Sodium (Synthroid Tab*) 50 mcg PO 0600 [facility] Last Admin: 05/27/16 07:26 Dose: 50 mcg Magnesium Oxide (Magox 400 Tab*) 400 mg PO DAILY [facility] Last Admin: 05/27/16 10:03 Dose: 400 mg Melatonin (Melatonin (Nf)) 3 mg PO BEDTIME PRN; Protocol PRN Reason: Sleep Last Admin: 05/27/16 03:24 Dose: 3 mg Methylprednisolone Sodium Succinate (Solu-Medrol*) 30 mg IV Q12H [facility] Last Admin: 05/27/16 00:00 Dose: 30 mg Metoclopramide HCl (Reglan Iv*) 5 mg IV Q6H PRN PRN Reason: NAUSEA/VOMITING Last Admin: 05/22/16 15:16 Dose: 5 mg Metoprolol Tartrate (Lopressor Tab*) 25 mg PO BID [facility] Last Admin: 05/27/16 10:03 Dose: 25 mg Mometasone Furoate/Formoterol Fumar (Dulera 200/5 Mdi*) 2 puff INH BID [facility] Last Admin: 05/27/16 08:06 Dose: 2 puff Nystatin (Nystatin Suspension*) 500,000 units PO TID [facility] Stop: 05/29/16 08:10 Last Admin: 05/27/16 10:03 Dose: 500,000 units Ondansetron HCl (Zofran Inj*) 4 mg IV Q4H PRN PRN Reason: NAUSEA Last Admin: 05/22/16 13:32 Dose: 4 mg Polyethylene Glycol/Electrolytes (Miralax*) 17 gm PO DAILY [facility] Last Admin: 05/27/16 10:03 Dose: 17 gm Senna (Senokot Tab*) 2 tab PO BEDTIME PRN PRN Reason: CONSTIPATION Last Admin: 05/26/16 09:04 Dose: 2 tab Sertraline HCl (Zoloft*) 100 mg PO 1600 [facility] Last Admin: 05/26/16 15:55 Dose: 100 mg Tiotropium [place] (Spiriva Cap.Inh*) 1 cap INH DAILY [facility] Last Admin: 05/27/16 08:06 Dose: 1 cap Vital Signs 05/26/16 05/26/16 05/26/16 12:58 15:47 16:49 Temperature 98.1 F Pulse Rate 77 72 Respiratory 18 16 Rate Blood Pressure 134/71 (mmHg) O2 Sat by Pulse 95 87 92 Oximetry 05/26/16 05/26/16 05/27/16 20:00 20:38 00:00 Temperature Pulse Rate 74 Respiratory 16 Rate Blood Pressure (mmHg) O2 Sat by Pulse 94 92 Oximetry 05/27/16 05/27/16 05/27/16 08:00 08:03 08:08 Temperature Pulse Rate 68 66 Respiratory 22 24 22 Rate Blood Pressure 165/75 (mmHg) O2 Sat by Pulse 91 97 91 Oximetry Oxygen Devices in Use Now: Nasal Cannula - 8-10L [place] Appearance: A+O x3 in NAD. flat affect which has been her baseline Eyes: No Scleral Icterus, PERRLA Ears/Nose/Mouth/Throat: NL Teeth, Lips, Gums, Mucous Membranes Moist Neck: NL Appearance and Movements; NL JVP Respiratory: Symmetrical Chest Expansion and Respiratory Effort, Clear to Auscultation Cardiovascular: NL Sounds; No Murmurs; No JVD, RRR, No Edema Abdominal: - - soft, slightly distended. Nl BS, nontender Extremities: No Edema Skin: No Rash or Ulcers, No Nodules or Sclerosis Neurological: Alert and Oriented x 3, NL Sensation, NL Muscle Strength and Tone Lines/Tubes/Other Access: Clean, Dry and Intact Peripheral IV Nutrition: Taking PO's Result Diagrams: 05/27/16 05:55 05/27/16 05:55 Additional Lab and Data: . Microbiology and Other Data: Microbiology 05/12/16 02:20 Nasal Screen MRSA (PCR)(BERNABE) - Final Nasal Mrsa Negative Diagnostic Imaging: CXR - NAD Assess/Plan/Problems-Billing Assessment: This is an 80 yo female with asthma, Parkinsons, asthma, HTN, hypothyroidism and depression who presented with cough and shortness of breath. She has been admitted for an asthma exacerbation secondary to influenza A infection, now with bibasilar pneumonia and right pleural effusion and strep bacteremia. - Patient Problems (1) Pneumonia of both lower lobes Comment: - Acute Resp Hypoxic Failure - slowly recovering - Post influenza pna with bibasilar infiltrates. Patient weaned from Vapotherm, now on [place] 5L, has been difficult to wean and slow to recover. - Afebrile, Leukocytosis resolved - Appreciate ID consult for strep bacteremia. Continue IV clindamycin day 11/29. - Continue IV solumedrol with taper - 40 mg daily - Continue nebulizers, guaifenesin. - Chest PT ordered; Flutter valve and IS - Appreciated Pulmonary consult. Recommends Chest PT, continue to titrate steroids - if no improvement Saturday obtain Chest CT (2) Diastolic CHF Comment: Stable Echo with preserved EF 50-55%, normal LV systolic function No previous echocardiograms on record. Daily weights (3) Constipation Comment: - resolved (4) Acute kidney injury Comment: Resolved. (5) Influenza A virus present Comment: Generalized weakness, slow to improve. Finished course of Tamiflu (6) Dementia Comment: Likely Lewey body No significant behavioral concerns, A+O x3 with mild confusion (7) HTN (hypertension) Comment: controlled continue metoprolol at 25 mg bid Maxzide discontinued (8) Parkinson disease Comment: Mild tremor noted Sinemet at home doses has been continued (9) Hypothyroid Comment: Cont levothyroxine (10) DNR (do not resuscitate) Comment: DNR/DNI, reviewed with patient's daughter who is her HCP Limited Interventions. (11) DVT prophylaxis Comment: SQ heparin Status and Disposition: Inpatient. Increased length of stay, Influenza complicated by acute hypoxic resp failure, bilateral pneumonia with bibasilar infiltrates and right pleural effusion and strep bacteremia. PT/OT
[2016-05-27] MEDS: methylPREDNISolone SOD 40 MG* 1 ML VIAL IV SCH ×2 (17:11)
[2016-05-27] MEDS: Sertraline* 100 MG TAB PO SCH (17:13)
[2016-05-27] MEDS: Carbidopa/Levodop CR 50/200(*) TAB.CR PO SCH (19:28)
[2016-05-28] MEDS: Clindamycin 600 MG IVPREMIX(* 600 MG/50 ML SDV IV SCH ×3 (02:42→18:12)
[2016-05-28] MEDS: Heparin VIAL(*) 5000 UNITS/ML VIAL (FIVE THOUSAND) SUBCUT SCH ×3 (05:20→22:12)
[2016-05-28] MEDS: Levothyroxine TAB* 50 MCG TAB PO SCH (05:20)
[2016-05-28] MEDS: Tiotropium CAP.INH* CAP.INH/18 MCG (USE ORDER SET !) INH SCH (08:48)
[2016-05-28] MEDS: Mometasone/Formoter 200/5 MDI INH SCH ×2 (08:48→19:41)
[2016-05-28] MEDS ORDERED: methylPREDNISolone SOD 40 MG* 1 ML VIAL IV SCH ×2 (09:00)
--- NOTE | 2016-05-28 09:31 | PN ---
Progress Note - Progress Note SOAP: Subjective: DOS: 05/28/16 CC: pneumonia HPI: 80 year old woman with influenza and then post influenza pneumonia. Oxygen requirements stable, no fever, rash, or diarrhea. Did not sleep well last night. No chest pain. Objective: [] Vital Signs Temp 36.8 C 05/28/16 07:24 Pulse 68 05/28/16 08:50 Resp 20 05/28/16 08:50 BP 120/61 05/28/16 07:24 Pulse Ox 98 05/28/16 08:50 Intake & Output 05/27/16 05/28/16 05/28/16 18:59 06:59 18:59 Intake Total 280 100 Balance 280 100 Intake: Oral 280 100 Other: Estimated Void Medium # Bowel Movements 1 Estimated Stool Amount Large Large # Voids 1 Gen:Awake, no distress Neuro:oriented x3 answers all questions HEENT:PERRL, MMM Neck:supple Heart:RRR no murmur Lungs:BL expiratory rhonchi Abd:+BS mildly distended non distended, soft Skin: no rash MSK: no spine tenderness, BL knees no effusion Assessment: 1. pneumonia with acute hypoxemic respiratory failure, present on admission 2. Strep bacteremia due to post influenza pneumonia; no peripheral stigmata of infective endocarditis or of other sites of infection 3. influenza, resolved 4. bilateral knee arthroplasties, asymptomatic Plan: 1. continue clindamycin day 11/29, will change to PO to finish course. 2. steroids and oxygen supplementation per primary team and pulmonary
[2016-05-28] MEDS: guaiFENesin ER TAB 600 MG PO SCH ×2 (09:35→22:13)
[2016-05-28] MEDS: Chlorhexidine MOUTHWASH 0.12%* 15 ML UDC SWISH SPIT SCH ×3 (09:35→22:12)
[2016-05-28] MEDS: Nystatin SUSPENSION* 100000 UNITS/ML 5 ML UDC PO SCH ×3 (09:35→22:12)
[2016-05-28] MEDS: Carbidopa/Levodop 25/100 MG TAB(*) PO SCH ×3 (09:36→15:40)
[2016-05-28] MEDS: Metoprolol Tartrate TAB* 25 MG PO SCH ×2 (09:37→22:13)
[2016-05-28] MEDS: Magnesium Oxide TAB* 400 MG PO SCH (09:37)
[2016-05-28] MEDS: Docusate CAP* 100 MG PO SCH ×2 (09:44→22:12)
[2016-05-28] MEDS: Polyethylene Glycol 3350* 17 GM PACKET PO SCH (09:44)
--- NOTE | 2016-05-28 11:24 | PN ---
Subjective Date of Service: 05/28/16 Interval History: . Patient continues to not have much energy, frequently refuses to get OOB. Today pt reports she feels "tired". Denies fever or chills. Occasional non productive cough. Reports "okay appetite". Discussed with the daughter. Family History: Unchanged from Admission Social History: Unchanged from Admission Past Medical History: Unchanged from Admission Objective Active Medications: Acetaminophen (Tylenol Tab*) 650 mg PO Q6H PRN PRN Reason: FEVER/PAIN Last Admin: 05/19/16 19:59 Dose: 650 mg Albuterol (Ventolin 2.5 Mg/3 Ml Neb.Madisyn*) 2.5 mg INH Q2H PRN PRN Reason: SOB/WHEEZING Last Admin: 05/26/16 00:36 Dose: 2.5 mg Benzonatate (Tessalon Cap*) 100 mg PO TID PRN PRN Reason: COUGH Last Admin: 05/26/16 00:33 Dose: 100 mg Bisacodyl (Dulcolax Ec Tab*) 5 mg PO DAILY PRN PRN Reason: CONSTIPATION Last Admin: 05/26/16 09:04 Dose: 5 mg Carbidopa/Levodopa (Sinemet 25/100 Tab(*)) 1.5 tab PO 0800,1200,1600 [facility] Last Admin: 05/28/16 09:36 Dose: 1.5 tab Carbidopa/Levodopa (Sinemet Cr 50/200(*)) 1 tab.cr PO 1900 [facility] Last Admin: 05/27/16 19:28 Dose: 1 tab.cr Chlorhexidine Gluconate (Peridex Mouth Wash 0.12%*) 15 ml SWISH SPIT TID [facility] Last Admin: 05/28/16 09:35 Dose: 15 ml Diphenhydramine HCl (Benadryl Iv*) 25 mg IV Q6H PRN PRN Reason: PRURITIS Last Admin: 05/21/16 01:31 Dose: 25 mg Docusate Sodium (Colace Cap*) 200 mg PO BID [facility] Last Admin: 05/28/16 09:44 Dose: Not Given Guaifenesin (Mucinex*) 1,200 mg PO BID [facility] Last Admin: 05/28/16 09:35 Dose: 1,200 mg Heparin Sodium (Porcine) (Heparin Vial(*)) 5,000 units SUBCUT Q8HR [facility] Last Admin: 05/28/16 05:20 Dose: 5,000 units Heparin Sodium (Porcine) (Heparin Flush Picc/Ml/Cvc(*)) 1 - 3 ml FLUSH 0600, 1800 [facility] PRN Reason: Protocol Last Admin: 05/28/16 06:11 Dose: 2 ml Clindamycin HCl/Dextrose (Cleocin 600 Mg Ivpremix(*) Sdv) 600 mg in 50 mls @ 100 mls/hr IV Q8H [facility] Last Admin: 05/28/16 02:42 Dose: 100 mls/hr Levothyroxine Sodium (Synthroid Tab*) 50 mcg PO 0600 [facility] Last Admin: 05/28/16 05:20 Dose: 50 mcg Magnesium Oxide (Magox 400 Tab*) 400 mg PO DAILY [facility] Last Admin: 05/28/16 09:37 Dose: 400 mg Melatonin (Melatonin (Nf)) 3 mg PO BEDTIME PRN; Protocol PRN Reason: Sleep Last Admin: 05/27/16 03:24 Dose: 3 mg Methylprednisolone Sodium Succinate (Solu-Medrol*) 40 mg IV DAILY [facility] Last Admin: 05/28/16 09:35 Dose: 40 mg Metoclopramide HCl (Reglan Iv*) 5 mg IV Q6H PRN PRN Reason: NAUSEA/VOMITING Last Admin: 05/22/16 15:16 Dose: 5 mg Metoprolol Tartrate (Lopressor Tab*) 25 mg PO BID [facility] Last Admin: 05/28/16 09:37 Dose: 25 mg Mometasone Furoate/Formoterol Fumar (Dulera 200/5 Mdi*) 2 puff INH BID [facility] Last Admin: 05/28/16 08:48 Dose: 2 puff Nystatin (Nystatin Suspension*) 500,000 units PO TID [facility] Stop: 05/29/16 08:10 Last Admin: 05/28/16 09:35 Dose: 500,000 units Ondansetron HCl (Zofran Inj*) 4 mg IV Q4H PRN PRN Reason: NAUSEA Last Admin: 05/22/16 13:32 Dose: 4 mg Polyethylene Glycol/Electrolytes (Miralax*) 17 gm PO DAILY [facility] Last Admin: 05/28/16 09:44 Dose: Not Given Senna (Senokot Tab*) 2 tab PO BEDTIME PRN PRN Reason: CONSTIPATION Last Admin: 05/26/16 09:04 Dose: 2 tab Sertraline HCl (Zoloft*) 100 mg PO 1600 [facility] Last Admin: 05/27/16 17:13 Dose: 100 mg Tiotropium [place] (Spiriva Cap.Inh*) 1 cap INH DAILY [facility] Last Admin: 05/28/16 08:48 Dose: 1 cap Vital Signs 05/27/16 05/27/16 05/27/16 15:36 16:00 16:29 Temperature 97.3 F Pulse Rate 70 Respiratory 16 Rate Blood Pressure 96/55 (mmHg) O2 Sat by Pulse 97 92 92 Oximetry 05/27/16 05/27/16 05/27/16 19:51 20:00 23:12 Temperature 97.7 F Pulse Rate 71 71 Respiratory 16 20 16 Rate Blood Pressure 116/53 (mmHg) O2 Sat by Pulse 94 94 94 Oximetry 05/28/16 05/28/16 05/28/16 07:24 08:00 08:50 Temperature 98.2 F Pulse Rate 68 68 Respiratory 16 18 20 Rate Blood Pressure 120/61 (mmHg) O2 Sat by Pulse 94 92 98 Oximetry Oxygen Devices in Use Now: Nasal Cannula - 8-10L [place] Appearance: elderly female laying in bed in NAD A+O x3 Eyes: No Scleral Icterus, PERRLA Ears/Nose/Mouth/Throat: NL Teeth, Lips, Gums, Mucous Membranes Moist Neck: NL Appearance and Movements; NL JVP Respiratory: Symmetrical Chest Expansion and Respiratory Effort, - - mild rhonchi to right base, no wheezes noted Cardiovascular: NL Sounds; No Murmurs; No JVD, RRR, No Edema Abdominal: NL Sounds; No Tenderness; No Distention Extremities: No Edema Skin: No Rash or Ulcers, No Nodules or Sclerosis Neurological: Alert and Oriented x 3 - noted mild dementia, flat affect, NL Muscle Strength and Tone Lines/Tubes/Other Access: Clean, Dry and Intact Peripheral IV Nutrition: Taking PO's Result Diagrams: 05/27/16 05:55 05/27/16 05:55 Additional Lab and Data: . Microbiology and Other Data: Microbiology 05/12/16 02:20 Nasal Screen MRSA (PCR)(BERNABE) - Final Nasal Mrsa Negative Diagnostic Imaging: CXR - NAD Assess/Plan/Problems-Billing Assessment: This is an 80 yo female with asthma, Parkinsons, asthma, HTN, hypothyroidism and depression who presented with cough and shortness of breath. She has been admitted for an asthma exacerbation secondary to influenza A infection, now with bibasilar pneumonia and right pleural effusion and strep bacteremia. - Patient Problems (1) Pneumonia of both lower lobes Comment: - Acute Resp Hypoxic Failure - slowly recovering - Post influenza pna with bibasilar infiltrates. Patient weaned from Vapotherm, now on [place] 2L, has been difficult to wean and slow to recover. - Afebrile, Leukocytosis resolved - Appreciate ID consult for strep bacteremia. Continue IV clindamycin day 11/29, ID changed to PO to finish the course - Prednisone 30 mg PO daily - Continue nebulizers, guaifenesin. - Chest PT ordered; Flutter valve and IS - Appreciated Pulmonary consult. CT chest recommended if pt wasnt resolving, howevere due to much improvement since last week will hold off for now. (2) Diastolic CHF Comment: Stable Echo with preserved EF 50-55%, normal LV systolic function No previous echocardiograms on record. Daily weights (3) Constipation Comment: - resolved (4) Acute kidney injury Comment: Resolved. (5) Influenza A virus present Comment: Generalized weakness, slow to improve. Finished course of Tamiflu (6) Dementia Comment: Likely Lewey body No significant behavioral concerns, A+O x3 with mild confusion (7) HTN (hypertension) Comment: controlled continue metoprolol at 25 mg bid Maxzide discontinued (8) Parkinson disease Comment: Mild tremor noted Sinemet at home doses has been continued (9) Hypothyroid Comment: Cont levothyroxine (10) DNR (do not resuscitate) Comment: DNR/DNI, reviewed with patient's daughter who is her HCP Limited Interventions. (11) DVT prophylaxis Comment: SQ heparin Status and Disposition: Inpatient. Increased length of stay, Influenza complicated by acute hypoxic resp failure, bilateral pneumonia with bibasilar infiltrates and right pleural effusion and strep bacteremia. PT/OT. Plan for DC to [facility] tomorrow.
[2016-05-28] MEDS: Sertraline* 100 MG TAB PO SCH (15:41)
--- NOTE | 2016-05-28 17:50 | PN ---
Progress Note - Progress Note Note: Pulm consult f/u note 05/28/16. Pt seen and examined at bedside. Pt reports improvement in breathing, continues to have fatigue, FiO2 requirements have decreased Active Medications Generic Name Dose Route Start Last Admin Trade Name Freq PRN Reason Stop Dose Admin Acetaminophen 650 mg 05/12/16 01:31 05/19/16 19:59 Tylenol Tab* PO 650 mg Q6H PRN Administration FEVER/PAIN Albuterol 2.5 mg 05/12/16 01:31 05/26/16 00:36 Ventolin 2.5 Mg/3 Ml Neb.Madisyn* INH 2.5 mg Q2H PRN Administration SOB/WHEEZING Benzonatate 100 mg 05/18/16 01:16 05/26/16 00:33 Tessalon Cap* PO 100 mg TID PRN Administration COUGH Bisacodyl 5 mg 05/22/16 08:07 05/26/16 09:04 Dulcolax Ec Tab* PO 5 mg DAILY PRN Administration CONSTIPATION Carbidopa/Levodopa 1.5 tab 05/12/16 08:00 05/28/16 15:40 Sinemet 25/100 Tab(*) PO 1.5 tab 0800,1200,1600 [facility] Administration Carbidopa/Levodopa 1 tab.cr 05/12/16 19:00 05/27/16 19:28 Sinemet Cr 50/200(*) PO 1 tab.cr 1900 [facility] Administration Chlorhexidine Gluconate 15 ml 05/22/16 09:00 05/28/16 15:42 Peridex Mouth Wash 0.12%* SWISH SPIT Not Given TID [facility] Diphenhydramine HCl 25 mg 05/19/16 22:39 05/21/16 01:31 Benadryl Iv* IV 25 mg Q6H PRN Administration PRURITIS Docusate Sodium 200 mg 05/12/16 09:00 05/28/16 09:44 Colace Cap* PO Not Given BID [facility] Guaifenesin 1,200 mg 05/12/16 09:00 05/28/16 09:35 Mucinex* PO 1,200 mg BID [facility] Administration Heparin Sodium (Porcine) 5,000 units 05/13/16 06:00 05/28/16 15:41 Heparin Vial(*) SUBCUT 5,000 units Q8HR [facility] Administration Heparin Sodium (Porcine) 1 - 3 ml 05/21/16 18:00 05/28/16 06:11 Heparin Flush Picc/Ml/Cvc(*) FLUSH 2 ml 0600,1800 [facility] Administration Protocol Clindamycin HCl/Dextrose 600 mg in 50 mls @ 100 mls/hr 05/21/16 11:00 12:26 Cleocin 600 Mg Ivpremix(*) Sdv IV 100 mls/hr Q8H [facility] Administration Levothyroxine Sodium 50 mcg 05/13/16 06:00 05/28/16 05:20 Synthroid Tab* PO 50 mcg 0600 [facility] Administration Magnesium Oxide 400 mg 05/18/16 20:00 05/28/16 09:37 Magox 400 Tab* PO 400 mg DAILY [facility] Administration Melatonin 3 mg 05/12/16 01:31 05/27/16 03:24 Melatonin (Nf) PO 3 mg BEDTIME PRN Administration Sleep Protocol Metoclopramide HCl 5 mg 05/19/16 02:16 05/22/16 15:16 Reglan Iv* IV 5 mg Q6H PRN Administration NAUSEA/VOMITING Metoprolol Tartrate 25 mg 05/23/16 21:00 05/28/16 09:37 Lopressor Tab* PO 25 mg BID [facility] Administration Mometasone Furoate/Formoterol Fumar 2 puff 05/12/16 09:00 05/28/16 08:48 Dulera 200/5 Mdi* INH 2 puff BID [facility] Administration Nystatin 500,000 units 05/25/16 21:00 05/28/16 15:41 Nystatin Suspension* PO 05/29/16 08:10 500,000 units TID [facility] Administration Ondansetron HCl 4 mg 05/18/16 12:31 05/22/16 13:32 Zofran Inj* IV 4 mg Q4H PRN Administration NAUSEA Polyethylene Glycol/Electrolytes 17 gm 05/22/16 09:00 05/28/16 09:44 Miralax* PO Not Given DAILY [facility] Prednisone 30 mg 05/29/16 09:00 Deltasone Tab* PO DAILY [facility] Senna 2 tab 05/22/16 08:07 05/26/16 09:04 Senokot Tab* PO 2 tab BEDTIME PRN Administration CONSTIPATION Sertraline HCl 100 mg 05/12/16 16:00 05/28/16 15:41 Zoloft* PO 100 mg 1600 [facility] Administration Tiotropium [place] 1 cap 05/12/16 09:00 05/28/16 08:48 Spiriva Cap.Inh* INH 1 cap DAILY [facility] Administration Vital Signs Temp Pulse Resp BP Pulse Ox 98.2 F 68 20 120/61 98 05/28/16 07:24 05/28/16 08:50 05/28/16 08:50 05/28/16 07:24 05/28/16 08:50 O/E: Pt in NAD, sitting up and eating breakfast HEENT: PERRLA, No JVD Lungs: Diminshed a/e b/l, scaterred wheeze+ CVS: S1, S2+ Abd: Obese, BS+ Ext: Trace edema Skin: No rash, bruise I/R: 80 yo f with h/o asthma, parkinsons a/w worsening SOB found to have Influenza, acute asthma exacerbation and post viral PNA resulting in hypoxic resp failure Pt improving slowly FiO2 requirements improved, down to 2L O2 today c/w steroid taper c/w bronchodilators On Clindamycin
[2016-05-28] MEDS: Carbidopa/Levodop CR 50/200(*) TAB.CR PO SCH (18:12)
[2016-05-29] MEDS: Albuterol 2.5 MG/3 ML NEB.SOL* (0.083%) INH PRN (00:16)
[2016-05-29] MEDS: CMCS Melatonin (NF) 3 MG TAB PO PRN (00:30)
[2016-05-29] MEDS: Clindamycin 600 MG IVPREMIX(* 600 MG/50 ML SDV IV SCH ×2 (03:20→11:11)
[2016-05-29] MEDS: Levothyroxine TAB* 50 MCG TAB PO SCH (05:34)
[2016-05-29] MEDS: Heparin VIAL(*) 5000 UNITS/ML VIAL (FIVE THOUSAND) SUBCUT SCH ×2 (05:34→14:07)
[2016-05-29 07:25] VITALS: BP 133/54
[2016-05-29] MEDS: Polyethylene Glycol 3350* 17 GM PACKET PO SCH (08:23)
[2016-05-29] MEDS ORDERED: predniSONE TAB* 10 MG PO SCH (09:00)
[2016-05-29] MEDS: Chlorhexidine MOUTHWASH 0.12%* 15 ML UDC SWISH SPIT SCH ×2 (09:20→14:06)
[2016-05-29] MEDS: Metoprolol Tartrate TAB* 25 MG PO SCH (09:21)
[2016-05-29] MEDS: Magnesium Oxide TAB* 400 MG PO SCH (09:21)
[2016-05-29] MEDS: guaiFENesin ER TAB 600 MG PO SCH (09:22)
[2016-05-29] MEDS: Docusate CAP* 100 MG PO SCH (09:22)
[2016-05-29] MEDS: Tiotropium CAP.INH* CAP.INH/18 MCG (USE ORDER SET !) INH SCH (09:28)
[2016-05-29] MEDS: Mometasone/Formoter 200/5 MDI INH SCH (09:29)
[2016-05-29] MEDS: Carbidopa/Levodop 25/100 MG TAB(*) PO SCH ×2 (10:05→13:54)
--- NOTE | 2016-05-29 10:43 | DCNOTE ---
Subjective Date of Service: 05/29/16 Interval History: Patient alert, confused but easily oriented. She reports she feels "tired" per PT in the room she got OOB but refuses other therapy. No other complaints. Per nursing staff has been stable. Spoke to daughter who is update the patient will be transferred Family History: Unchanged from Admission Social History: Unchanged from Admission Past Medical History: Unchanged from Admission Objective Active Medications: Acetaminophen (Tylenol Tab*) 650 mg PO Q6H PRN PRN Reason: FEVER/PAIN Last Admin: 05/19/16 19:59 Dose: 650 mg Albuterol (Ventolin 2.5 Mg/3 Ml Neb.Madisyn*) 2.5 mg INH Q2H PRN PRN Reason: SOB/WHEEZING Last Admin: 05/29/16 00:16 Dose: 2.5 mg Benzonatate (Tessalon Cap*) 100 mg PO TID PRN PRN Reason: COUGH Last Admin: 05/26/16 00:33 Dose: 100 mg Bisacodyl (Dulcolax Ec Tab*) 5 mg PO DAILY PRN PRN Reason: CONSTIPATION Last Admin: 05/26/16 09:04 Dose: 5 mg Carbidopa/Levodopa (Sinemet 25/100 Tab(*)) 1.5 tab PO 0800,1200,1600 [facility] Last Admin: 05/29/16 10:05 Dose: 1.5 tab Carbidopa/Levodopa (Sinemet Cr 50/200(*)) 1 tab.cr PO 1900 [facility] Last Admin: 05/28/16 18:12 Dose: 1 tab.cr Chlorhexidine Gluconate (Peridex Mouth Wash 0.12%*) 15 ml SWISH SPIT TID [facility] Last Admin: 05/29/16 09:20 Dose: 15 ml Diphenhydramine HCl (Benadryl Iv*) 25 mg IV Q6H PRN PRN Reason: PRURITIS Last Admin: 05/21/16 01:31 Dose: 25 mg Docusate Sodium (Colace Cap*) 200 mg PO BID [facility] Last Admin: 05/29/16 09:22 Dose: Not Given Guaifenesin (Mucinex*) 1,200 mg PO BID [facility] Last Admin: 05/29/16 09:22 Dose: 1,200 mg Heparin Sodium (Porcine) (Heparin Vial(*)) 5,000 units SUBCUT Q8HR [facility] Last Admin: 05/29/16 05:34 Dose: 5,000 units Heparin Sodium (Porcine) (Heparin Flush Picc/Ml/Cvc(*)) 1 - 3 ml FLUSH 0600, 1800 [facility] PRN Reason: Protocol Last Admin: 05/29/16 05:33 Dose: 2 ml Clindamycin HCl/Dextrose (Cleocin 600 Mg Ivpremix(*) Sdv) 600 mg in 50 mls @ 100 mls/hr IV Q8H [facility] Last Admin: 05/29/16 03:20 Dose: 100 mls/hr Levothyroxine Sodium (Synthroid Tab*) 50 mcg PO 0600 [facility] Last Admin: 05/29/16 05:34 Dose: 50 mcg Magnesium Oxide (Magox 400 Tab*) 400 mg PO DAILY [facility] Last Admin: 05/29/16 09:21 Dose: 400 mg Melatonin (Melatonin (Nf)) 3 mg PO BEDTIME PRN; Protocol PRN Reason: Sleep Last Admin: 05/29/16 00:30 Dose: 3 mg Metoclopramide HCl (Reglan Iv*) 5 mg IV Q6H PRN PRN Reason: NAUSEA/VOMITING Last Admin: 05/22/16 15:16 Dose: 5 mg Metoprolol Tartrate (Lopressor Tab*) 25 mg PO BID [facility] Last Admin: 05/29/16 09:21 Dose: 25 mg Mometasone Furoate/Formoterol Fumar (Dulera 200/5 Mdi*) 2 puff INH BID [facility] Last Admin: 05/29/16 09:29 Dose: 2 puff Ondansetron HCl (Zofran Inj*) 4 mg IV Q4H PRN PRN Reason: NAUSEA Last Admin: 05/22/16 13:32 Dose: 4 mg Polyethylene Glycol/Electrolytes (Miralax*) 17 gm PO DAILY [facility] Last Admin: 05/29/16 08:23 Dose: Not Given Prednisone (Deltasone Tab*) 30 mg PO DAILY [facility] Last Admin: 05/29/16 09:20 Dose: 30 mg Senna (Senokot Tab*) 2 tab PO BEDTIME PRN PRN Reason: CONSTIPATION Last Admin: 05/26/16 09:04 Dose: 2 tab Sertraline HCl (Zoloft*) 100 mg PO 1600 [facility] Last Admin: 03/13/17 15:41 Dose: 100 mg Tiotropium [place] (Spiriva Cap.Inh*) 1 cap INH DAILY [facility] Last Admin: 05/29/16 09:28 Dose: 1 cap Vital Signs 05/28/16 05/28/16 05/28/16 15:21 19:42 20:00 Temperature 98.1 F Pulse Rate 73 68 Respiratory 20 20 20 Rate Blood Pressure 128/55 (mmHg) O2 Sat by Pulse 92 92 Oximetry 05/28/16 05/29/16 05/29/16 23:18 00:16 07:24 Temperature 98.0 F 98.2 F Pulse Rate 88 85 76 Respiratory 20 19 17 Rate Blood Pressure 139/68 133/54 (mmHg) O2 Sat by Pulse 93 96 94 Oximetry 05/29/16 05/29/16 08:20 09:30 Temperature Pulse Rate 70 Respiratory 18 18 Rate Blood Pressure (mmHg) O2 Sat by Pulse 93 93 Oximetry Oxygen Devices in Use Now: Nasal Cannula - 8-10L [place] Appearance: alert to self and place but not to time, easily reoriented Eyes: No Scleral Icterus, PERRLA Ears/Nose/Mouth/Throat: NL Teeth, Lips, Gums, Mucous Membranes Moist Neck: NL Appearance and Movements; NL JVP Respiratory: Symmetrical Chest Expansion and Respiratory Effort, - - mild rhonchi right lower base Cardiovascular: NL Sounds; No Murmurs; No JVD, RRR, No Edema Abdominal: NL Sounds; No Tenderness; No Distention Extremities: No Edema, No Clubbing, Cyanosis Skin: No Rash or Ulcers, No Nodules or Sclerosis Neurological: NL Sensation, NL Muscle Strength and Tone, - - can stand and pivot Lines/Tubes/Other Access: Clean, Dry and Intact PICC Line - to be removed Nutrition: Taking PO's Result Diagrams: 05/27/16 05:55 05/27/16 05:55 Additional Lab and Data: . Microbiology and Other Data: Microbiology 05/12/16 02:20 Nasal Screen MRSA (PCR)(BERNABE) - Final Nasal Mrsa Negative Diagnostic Imaging: CXR - NAD Assess/Plan/Problems-Billing Assessment: This is an 80 yo female with asthma, Parkinsons, asthma, HTN, hypothyroidism and depression who presented with cough and shortness of breath. She has been admitted for an asthma exacerbation secondary to influenza A infection, now with bibasilar pneumonia and right pleural effusion and strep bacteremia. - Patient Problems (1) Pneumonia of both lower lobes Comment: - Acute Resp Hypoxic Failure - resolved. - Post influenza pna with bibasilar infiltrates. Patient weaned from Vapotherm, now on NC 2L, has been difficult to wean and slow to recover but has had much improvement - Afebrile, Leukocytosis resolved - Appreciate ID consult for strep bacteremia. Continue PO clindamycin day 10/14 - Prednisone 30 mg PO daily, continue taper - Appreciated Pulmonary consult. Recommend prednisone taper. (2) Diastolic CHF Comment: Stable Echo with preserved EF 50-55%, normal LV systolic function No previous echocardiograms on record. Daily weights (3) Constipation Comment: - resolved (4) Acute kidney injury Comment: Resolved. (5) Influenza A virus present Comment: Generalized weakness, slow to improve. Finished course of Tamiflu (6) Dementia Comment: Likely [place] body No significant behavioral concerns, A+O x3 with mild confusion (7) HTN (hypertension) Comment: controlled continue metoprolol at 25 mg bid Maxzide discontinued (8) Parkinson disease Comment: Mild tremor noted Sinemet at home doses has been continued (9) Hypothyroid Comment: Cont levothyroxine (10) DNR (do not resuscitate) Comment: DNR/DNI, reviewed with patient's daughter who is her HCP Limited Interventions. (11) DVT prophylaxis Comment: SQ heparin Status and Disposition: Inpatient. Increased length of stay, Influenza complicated by acute hypoxic resp failure, bilateral pneumonia with bibasilar infiltrates and right pleural effusion and strep bacteremia. PT/OT. Plan for DC to [facility] today
[2016-05-29] MEDS ORDERED: Clindamycin CAP* 150 MG PO SCH (11:00)
--- NOTE | 2016-05-29 11:41 | PN ---
Progress Note - Progress Note Note: Pulm consult f/u note 05/29/16. Pt seen and examined at bedside. Pt reports improvement in breathing, continues to have fatigue, FiO2 requirements have decreased Active Medications Generic Name Dose Route Start Last Admin Trade Name Freq PRN Reason Stop Dose Admin Acetaminophen 650 mg 05/12/16 01:31 05/19/16 19:59 Tylenol Tab* PO 650 mg Q6H PRN Administration FEVER/PAIN Albuterol 2.5 mg 05/12/16 01:31 05/29/16 00:16 Ventolin 2.5 Mg/3 Ml Neb.Madisyn* INH 2.5 mg Q2H PRN Administration SOB/WHEEZING Benzonatate 100 mg 05/18/16 01:16 05/26/16 00:33 Tessalon Cap* PO 100 mg TID PRN Administration COUGH Bisacodyl 5 mg 05/22/16 08:07 05/26/16 09:04 Dulcolax Ec Tab* PO 5 mg DAILY PRN Administration CONSTIPATION Carbidopa/Levodopa 1.5 tab 05/12/16 08:00 05/29/16 10:05 Sinemet 25/100 Tab(*) PO 1.5 tab 0800,1200,1600 [facility] Administration Carbidopa/Levodopa 1 tab.cr 05/12/16 19:00 05/28/16 18:12 Sinemet Cr 50/200(*) PO 1 tab.cr 1900 [facility] Administration Chlorhexidine Gluconate 15 ml 05/22/16 09:00 05/29/16 09:20 Peridex Mouth Wash 0.12%* SWISH SPIT 15 ml TID [facility] Administration Clindamycin HCl 600 mg 05/29/16 11:00 Cleocin Cap* PO Q8HR [facility] Diphenhydramine HCl 25 mg 05/19/16 22:39 05/21/16 01:31 Benadryl Iv* IV 25 mg Q6H PRN Administration PRURITIS Docusate Sodium 200 mg 05/12/16 09:00 05/29/16 09:22 Colace Cap* PO Not Given BID [facility] Guaifenesin 1,200 mg 05/12/16 09:00 05/29/16 09:22 Mucinex* PO 1,200 mg BID [facility] Administration Heparin Sodium (Porcine) 5,000 units 05/13/16 06:00 05/29/16 05:34 Heparin Vial(*) SUBCUT 5,000 units Q8HR [facility] Administration Heparin Sodium (Porcine) 1 - 3 ml 05/21/16 18:00 05/29/16 05:33 Heparin Flush Picc/Ml/Cvc(*) FLUSH 2 ml 0600,1800 [facility] Administration Protocol Levothyroxine Sodium 50 mcg 05/13/16 06:00 05/29/16 05:34 Synthroid Tab* PO 50 mcg 0600 [facility] Administration Magnesium Oxide 400 mg 05/18/16 20:00 05/29/16 09:21 Magox 400 Tab* PO 400 mg DAILY [facility] Administration Melatonin 3 mg 05/12/16 01:31 05/29/16 00:30 Melatonin (Nf) PO 3 mg BEDTIME PRN Administration Sleep Protocol Metoclopramide HCl 5 mg 05/19/16 02:16 05/22/16 15:16 Reglan Iv* IV 5 mg Q6H PRN Administration NAUSEA/VOMITING Metoprolol Tartrate 25 mg 05/23/16 21:00 05/29/16 09:21 Lopressor Tab* PO 25 mg BID [facility] Administration Mometasone Furoate/Formoterol Fumar 2 puff 05/12/16 09:00 05/29/16 09:29 Dulera 200/5 Mdi* INH 2 puff BID [facility] Administration Ondansetron HCl 4 mg 05/18/16 12:31 05/22/16 13:32 Zofran Inj* IV 4 mg Q4H PRN Administration NAUSEA Polyethylene Glycol/Electrolytes 17 gm 05/22/16 09:00 05/29/16 08:23 Miralax* PO Not Given DAILY [facility] Prednisone 30 mg 05/29/16 09:00 05/29/16 09:20 Deltasone Tab* PO 30 mg DAILY [facility] Administration Senna 2 tab 05/22/16 08:07 05/26/16 09:04 Senokot Tab* PO 2 tab BEDTIME PRN Administration CONSTIPATION Sertraline HCl 100 mg 05/12/16 16:00 05/28/16 15:41 Zoloft* PO 100 mg 1600 [facility] Administration Tiotropium [place] 1 cap 05/12/16 09:00 05/29/16 09:28 Spiriva Cap.Inh* INH 1 cap DAILY [facility] Administration Vital Signs Temp Pulse Resp BP Pulse Ox 98.2 F 70 18 133/54 93 05/29/16 07:24 05/29/16 09:30 05/29/16 09:30 05/29/16 07:24 05/29/16 09:30 O/E: Pt in NAD, sitting up and eating breakfast HEENT: PERRLA, No JVD Lungs: Diminshed a/e b/l, scaterred wheeze+ CVS: S1, S2+ Abd: Obese, BS+ Ext: Trace edema Skin: No rash, bruise I/R: 80 yo f with h/o asthma, parkinsons a/w worsening SOB found to have Influenza, acute asthma exacerbation and post viral PNA resulting in hypoxic resp failure Pt improved FiO2 requirements improved, down to 2L O2 today c/w steroid taper c/w bronchodilators On Clindamycin Agree with d/c plan D/W Lizbeth LARSON
--- NOTE | 2016-05-29 13:12 | PN ---
Progress Note - Progress Note SOAP: Subjective: DOS: 05/29/16 CC: pneumonia HPI: 80 year old woman with influenza and then post influenza pneumonia. Oxygen requirements stable, no fever, rash, or diarrhea. Eating lunch, cough is productive, breathing feels ok. Objective: [] Vital Signs Temp 36.8 C 05/29/16 07:24 Pulse 70 05/29/16 09:30 Resp 18 05/29/16 09:30 BP 133/54 05/29/16 07:24 Pulse Ox 93 05/29/16 09:30 Intake & Output 05/28/16 05/29/16 05/29/16 18:59 06:59 18:59 Intake Total 1100 200 120 Balance 1100 200 120 Weight 181 lb 3.2 oz Intake: Oral 1100 200 120 Other: Estimated Void Large Medium Medium # Bowel Movements 0 1 1 Estimated Stool Amount Medium Small # Voids 1 1 2 Gen:Awake, no distress Neuro:oriented x3 answers all questions HEENT:PERRL, MMM Neck:supple Heart:RRR no murmur Lungs:BL expiratory rhonchi Abd:+BS mildly distended non distended, soft Skin: no rash MSK: no spine tenderness, BL knees no effusion Assessment: 1. pneumonia with acute hypoxemic respiratory failure, present on admission, O2 requirement stable 2. Strep bacteremia due to post influenza pneumonia 3. influenza, resolved 4. bilateral knee arthroplasties, asymptomatic Plan: 1. continue clindamycin PO TID day 1014, follow up CXR 3 weeks. 2. steroids and oxygen supplementation per primary team and pulmonary
--- NOTE | 2016-05-29 15:32 | DS ---
DISCHARGE SUMMARY: DATE OF ADMISSION: 05/11/16 DATE OF DISCHARGE: 05/29/16 ATTENDING PHYSICIAN: Dr. Avelar* (report dictated by Elo Velarde, MARSHA) PRIMARY CARE PROVIDER: Dr. Antonio. PRIMARY DIAGNOSES: 1. Influenza A complicated by bibasilar pneumonia with acute hypoxic respiratory failure requiring high-flow oxygen with Vapotherm in the ICU. Hospitalization was also complicated by strep bacteremia. 2. Diastolic congestive heart failure. 3. Constipation. 4. Acute kidney injury. 5. Dementia. SECONDARY DIAGNOSES: 1. Parkinson's. 2. Hypertension. 3. Asthma/chronic obstructive pulmonary disease. 4. Hypothyroidism. 5. Depression. 6. History of breast cancer. DISCHARGE MEDICATIONS: 1. Synthroid 50 mcg p.o. q.a.m. 2. Vitamin C 500 mg p.o. daily. 3. Acetaminophen 50 mg p.o. q.4 hours p.r.n. 4. Carbidopa/levodopa 25/100 mg 1.5 tabs p.o. at 0800, 1200, 1600 hours. 5. Carbidopa-levodopa CR 500-200 mg 1 tab p.o. at 1900 hours. 6. Zoloft 100 mg p.o. at 1600 hours. 7. Loperamide (Imodium) 3 mg p.o. p.r.n. needed for diarrhea. 8. Acetaminophen 325 mg p.o. q.4 hours, standing order for osteoarthritis. 9. Multivitamins with mineral 1 tab p.o. daily. 10. Advair Diskus 250-50 one puff INH b.i.d. 11. Spiriva 1 cap INH daily. 12. Mucinex 1200 mg p.o. b.i.d. until cough resolves. 13. Prednisone 30 mg p.o. daily x1 day, then decrease by 5 mg every 3 days, then discontinue. 14. MiraLax 17 g p.o. daily. 15. Lopressor 25 mg p.o. b.i.d. 16. Melatonin 3 mg p.o. at bedtime p.r.n. 17. Magnesium oxide 400 mg p.o. daily. 18. Colace 200 mg p.o. b.i.d. 19. Clindamycin 600 mg p.o. q.8 hours for 5 more days to finish a course of 14 days for strep bacteremia (through 06/02/16). HISTORY OF PRESENT ILLNESS AND HOSPITAL COURSE: Please see history and physical by Dr. Smith for full admission details. The patient presented to the emergency department on 05/11/16 with complaint of cough and shortness of breath, found to be positive for influenza A. Ms. Woods currently resides at [facility] where she remained fairly dependent. She reported onset of cough approximately 1 week prior and became acutely worse on the evening she came to the emergency department with increased shortness of breath, malaise and fatigue as well as she reported fever and chills, but denied nausea, vomiting, diarrhea or chest pain. She reported flu and pneumococcal vaccines, reportedly to be up-to-date. She was admitted to the hospitalist service, started on Tamiflu, which she finished a 5-day course. She was initially admitted to the medical floor and was only requiring 2 L of oxygen. The patient had some reactive airway disease with her history of asthma. Her chest x-ray on admission showed no active disease. The patient was noted to have very slow improvement with no motivation to get out of bed, sit up in the chair or ambulate. On 05/18/16, the patient had an acute episode where she was up on the commode, became very short of breath, did not feel well; it was thought secondary to a combination of vasovagal secondary to hypovolemia and bronchospasms. The patient was requiring 10 L of oxygen to maintain her O2 sats. Chest x-ray was performed showing no acute infiltrates. Her D-dimer was 300, but age adjusted was negative, low suspicion for PE. Her shortness of breath resolved with a nebulizer and morphine. At that time, blood cultures were also sent. That evening, the patient had another acute episode in which she had increasing dyspnea with increased oxygen requirements requiring up to 11 L, which she had been turning back down to her prior oxygen requirements earlier that day. The patient was noted to be quite tachypneic in moderate respiratory distress and the patient was transferred to the ICU for BiPAP thought to be secondary to exacerbation of diastolic congestive heart failure. The patient continued to have increased oxygen requirements and was placed on high-flow oxygen with Vapotherm 40 L with 100% FiO2. The patient slowly progressed and was weaned off the high-flow oxygen. She was noted to have a positive strep bacteremia in 1/4 blood cultures that were drawn on 05/18/16. The patient continued on vancomycin with addition of clindamycin and continued azithromycin as the patient did have a new right basilar infiltrate. The patient was then continued on clindamycin on which she will be discharged home to finish a total course of 14 days. The patient has slowly improved and has little motivation to get out of bed, frequently refusing physical therapy. I have cared for this patient intermittently throughout her hospitalization and she has very little motivation. I have spoken to the daughter at length and the plan is to encourage subacute rehab for a week or two and if the patient is not progressing , to consider palliative consultation. The patient does have some noted dementia at her baseline and has noted to have frequent confusion, but answers questions appropriately, is easy to re-orient, and has had no acute delirium throughout her hospitalization. The patient was seen in consultation by Dr. Palomares, environmental specialist, who recommended taper of steroids with continuation of clindamycin, reported the patient has poorly inflated lung chase, which may be resulting in hypoxemia. Recommend continuing chest PT, encouraging flutter valve and/or incentive spirometer. The patient was seen by Infectious Disease physician, Dr. Clark, as stated above and has failed antibiotics. The patient is stable for discharge to [facility] for subacute rehab. The patient has had no leukocytosis for greater than 4 days. Other labs are unremarkable. She has remained afebrile since 05/19/16. She has remained hemodynamically stable except for some hypotension around 05/18/16 to 05/19/16 during her acute decline, which resolved quickly. The patient has had repeat blood cultures, which have been negative. Her urine culture has been negative. She underwent a transthoracic echocardiogram, which showed "an ejection fraction of 55% to 60% with normal left ventricular systolic function and global left ventricular wall motion contractility within normal limits. Mild to moderate concentric left ventricular hypertrophy is observed. Abnormal left ventricular diastolic filling observed consistent with impaired relaxation. The right ventricular global systolic function is mildly reduced. Functionally benign heart valves. There is a mild dilatation of the ascending aorta. No prior echo to compare to." The patient was treated for acute diastolic congestive heart failure with some Lasix; however, she has not been treated with a diuretic in the past week. DISCHARGE PLAN: 1. The patient is stable for discharge to [facility] for subacute rehab. Again, I discussed with the daughter at length her slow recovery as well as very little interest in participating in therapy. The most she has done is gotten out of bed to chair. If the patient continues to not progress, consider hospice consultation. 2. Continue course of prednisone and antibiotics. 3. Continue 2 L of oxygen nasal cannula. TIME SPENT: Approximately 60 minutes spent on this discharge. ELO VELARDE NP CC: Dr. Antonio* [id number]/CPS #: [id number] MTDD
== END 2016-05-29 14:30 | DRG 193 ==
LOC: ED 21:54 → MED 05-12 01:29 → ICU 05-18 23:55 → MED 05-22 16:44
PROVIDERS: ADMIT Hospitalist; ATTEND Internal Medicine
PROC: 5A09357 Assistance with Respiratory Ventilation, Less than 24 Consecutive Hours, Continuous Positive Airway Pressure (ICD-10-PCS; principal; 2016-05-19)
DX: J10.08 Influenza due to other identified influenza virus with other specified pneumonia (principal); J96.01 Acute respiratory failure with hypoxia; N17.9 Acute kidney failure, unspecified; I50.33 Acute on chronic diastolic (congestive) heart failure; R78.81 Bacteremia; J90 Pleural effusion, not elsewhere classified; I95.9 Hypotension, unspecified; I11.0 Hypertensive heart disease with heart failure; G31.83 Neurocognitive disorder with Lewy bodies; J44.0 Chronic obstructive pulmonary disease with (acute) lower respiratory infection; J45.901 Unspecified asthma with (acute) exacerbation; J44.9 Chronic obstructive pulmonary disease, unspecified; F02.80 Dementia in other diseases classified elsewhere, unspecified severity, without behavioral disturbance, psychotic disturbance, mood disturbance, and anxiety; J15.9 Unspecified bacterial pneumonia; K21.9 Gastro-esophageal reflux disease without esophagitis; E11.9 Type 2 diabetes mellitus without complications; M19.90 Unspecified osteoarthritis, unspecified site; M48.00 Spinal stenosis, site unspecified; G25.81 Restless legs syndrome; F41.0 Panic disorder [episodic paroxysmal anxiety]; E03.9 Hypothyroidism, unspecified; E66.3 Overweight; E86.0 Dehydration; Z96.653 Presence of artificial knee joint, bilateral; E87.6 Hypokalemia; F32.9 Major depressive disorder, single episode, unspecified; Z66 Do not resuscitate; K59.00 Constipation, unspecified; Z82.49 Family history of ischemic heart disease and other diseases of the circulatory system; Z88.8 Allergy status to other drugs, medicaments and biological substances; Z85.3 Personal history of malignant neoplasm of breast; Z90.710 Acquired absence of both cervix and uterus; Z98.49 Cataract extraction status, unspecified eye; Z83.3 Family history of diabetes mellitus; Z68.30 Body mass index [BMI] 30.0-30.9, adult
CPT/HCPCS: 36415; 36600; 71010; 71020; 80048; 80053; 80202; 81003; 81015; 82803; 83605; 83735; 83880; 84484; 85025; 85379; 87040; 87077; 87086; 87186; 87205; 87502; 87641; 93005; 93306; 94640; 94660; 94760; A9270-GY; C1751; J0456; J0692; J0696; J1200; J1644; J1940; J2270; J2405; J2765; J2920; J2930; J2997; J3370; J3475; J3480; J7512